=== PATIENT | male | born 1990 | race Caucasian/White ===

== ENCOUNTER 2020-12-21 17:20 | Emergency (ER) | payer BC, SELFPAY ==
[2020-12-21 17:28] VITALS: BP 144/92; PULSE 76; RESP 18; TEMP 36.9; O2SAT 99
--- NOTE | 2020-12-21 18:11 | ED.EAR ---
HPI - Ear Problem General Chief complaint: Ear Stated complaint: Right Ear Pain Time Seen by Provider: 12/21/20 18:05 Source: patient and RN notes reviewed Mode of arrival: ambulatory Limitations: no limitations History of Present Illness HPI Narrative: Patient presents today complaining of right ear pain x1 week. Denies drainage. Reports some muffled hearing occasionally. Denies cough, congestion, rhinorrhea, sore throat. Currently rates pain 3/10 and took some naproxen yesterday with some relief. No recent antibiotic use. Related Data Allergies Allergy/AdvReac Type Severity Reaction Status Date / Time No Known Allergies Allergy Unverified 12/21/20 17:36 Review of Systems Review of Systems: CONSTITUTIONAL: Denies body aches, fever, chills, or sweats. EYES: Denies visual changes, redness, or discharge. ENT: Denies rhinorrhea, congestion, sore throat. + Right ear pain with muffled hearing CARDIOVASCULAR: Denies chest pain, palpitations, or edema. RESPIRATORY: Denies cough or dyspnea. GASTROINTESTINAL: Denies abdominal pain, nausea, vomiting, or diarrhea. GENITOURINARY: Denies dysuria or hematuria. SKIN: Denies rash, itching, or wounds. MUSCULOSKELETAL: Denies back pain, joint pain, or myalgia. NEUROLOGIC: Denies headache, numbness, tingling, or weakness. PSYCH: Denies depression or anxiety. [facility] Family History Family History Father Family history of diabetes mellitus in first degree relative Hypertension Family history of elevated blood lipids Social History Social History Smoking status: Never smoker Alcohol intake: current Comments At time of signature, I have reviewed and agree with nursing past medical, surgical, social and family history unless otherwise noted. Please see nursing chart for further information. There is no relevant family history pertinent to the presenting complaint Exam Narrative: GENERAL: Well-appearing, well-nourished, and in no acute distress. HEAD: Normocephalic, atraumatic. EYES: EOMI. No redness or drainage. Conjunctivae normal. ENT: Mucous membranes pink and moist. Nares clear. No rhinorrhea. Left TM and canal normal. Right canal is mildly swollen with small amount of yellow purulent debris. Throat normal. Uvula midline. NECK: Normal AROM. CHEST: No respiratory distress. MUSCULOSKELETAL: No bony tenderness. EXTREMITIES: Normal range of motion. No edema. SKIN: Warm, dry, no rash. Capillary refill normal. Normal skin turgor. NEURO: No focal deficits. Alert and oriented x3. Gait steady. PSYCH: Normal affect. No signs of depression or anxiety. Course Vital Signs Vital signs: Vital Signs Temperature 98.5 F 12/21/20 17:28 Pulse Rate 76 12/21/20 17:28 Respiratory Rate 18 12/21/20 17:28 Blood Pressure 144/92 H 12/21/20 17:28 Pulse Oximetry 99 12/21/20 17:28 Temperature 98.5 F 12/21/20 17:28 Pulse Rate 76 12/21/20 17:28 Respiratory Rate 18 12/21/20 17:28 Blood Pressure 144/92 H 12/21/20 17:28 Pulse Oximetry 99 12/21/20 17:28 Reviewed. Pt has been instructed to follow up with his PCP regarding his elevated blood pressure today. Medical Decision Making Differential Diagnosis Differential Diagnosis: Otitis media, otitis externa, ruptured TM, serous otitis, eustachian tube dysfunction, cerumen impaction Vital Signs Vital Signs: Vital Signs Temperature 98.5 F 12/21/20 17:28 Pulse Rate 76 12/21/20 17:28 Respiratory Rate 18 12/21/20 17:28 Blood Pressure 144/92 H 12/21/20 17:28 Pulse Oximetry 99 12/21/20 17:28 Temperature 98.5 F 12/21/20 17:28 Pulse Rate 76 12/21/20 17:28 Respiratory Rate 18 12/21/20 17:28 Blood Pressure 144/92 H 12/21/20 17:28 Pulse Oximetry 99 12/21/20 17:28 Critical Care Time Critical Care Time Critical Care Time: No Discharge Plan Discharge Cli
== END 2020-12-21 18:19 | disposition home or self-care (01) ==
PROVIDERS: Emergency Provider Nurse Practitioner
DX: H66.91 Otitis media, unspecified, right ear (principal); H60.501 Unspecified acute noninfective otitis externa, right ear
CPT/HCPCS: 99203; G0463

== ENCOUNTER 2021-08-14 12:45 | Emergency (ER) | payer BC, SELFPAY ==
[2021-08-14 12:49] VITALS: BP 164/94; PULSE 89; RESP 16; TEMP 37; O2SAT 98
--- NOTE | 2021-08-14 12:55 | ED.EAR ---
HPI - Ear Problem General Chief complaint: Ear Stated complaint: ear pain Time Seen by Provider: 08/14/21 12:56 Source: patient Mode of arrival: ambulatory Limitations: no limitations History of Present Illness HPI Narrative: Mr. Vásquez is a 30-year-old male patient presenting to the clinic today with complaints of right-sided ear pain. He reports that the pain is just below his ear. He reports the pain is worse with talking, swallowing, and chewing. He denies any fever or chills. He does have some nasal congestion. He denies any difficulty hearing from the ear. Related Data Home Medications Medication Instructions Recorded Confirmed No Home Medications 08/14/21 08/14/21 Allergies Allergy/AdvReac Type Severity Reaction Status Date / Time No Known Allergies Allergy Unverified 08/14/21 12:58 Review of Systems Review of Systems: Pertinent positives per HPI. Patient denies any fever, chills, rash, headache, visual changes, dizziness, cough, runny nose, sore throat, shortness of breath, chest pain, palpitations, nausea, vomiting, diarrhea, constipation, abdominal pain, or any urinary issues. [facility] Family History Family History Father Family history of diabetes mellitus in first degree relative Hypertension Family history of elevated blood lipids Social History Social History Smoking status: Never smoker Alcohol intake: current Comments At the time of my signature, I reviewed and agree with the nursing past medical, surgical, social, and family history. There is no relevant family history pertinent to the patient complaint. Exam Narrative: General: Well-developed, well nourished, in no apparent distress Head: Normocephalic, atraumatic Eyes: Pupils equally round and reactive to light bilaterally, EOM intact, sclera and conjunctive clear, no discharge, lids normal Ears: TMs intact and clear, mild bulging to the right TM, tenderness to palpation over the right eustachian tube, ear canals red, no drainage, grossly hearing normal. Nose: Nares patent, clear nasal discharge, no inflammation, no sinus tenderness. Mouth: Oropharynx without lesions or masses, good dentition, MMM. Neck: Supple, trachea midline, no enlargement of anterior or posterior cervical nodes, no thyroid masses or goiter palpable. Cardio: Regular rate and rhythm, s1 and s2 normal, no murmur appreciated. Resp: Clear to auscultation bilaterally anteriorly and posteriorly, no rhonchi, rales, wheezing or rubs Course Course Emergency Course: Portions of this record may have been created with voice recognition software. Level of Care: Express Care Visit Vital Signs Vital signs: Vital Signs Temperature 37.0 C 08/14/21 12:49 Pulse Rate 89 08/14/21 12:49 Respiratory Rate 16 08/14/21 12:49 Blood Pressure 164/94 H 08/14/21 12:49 Pulse Oximetry 98 08/14/21 12:49 Oxygen Delivery Room Air 08/14/21 12:49 Temperature 37.0 C 08/14/21 12:49 Pulse Rate 89 08/14/21 12:49 Respiratory Rate 16 08/14/21 12:49 Blood Pressure 164/94 H 08/14/21 12:49 Pulse Oximetry 98 08/14/21 12:49 Oxygen Delivery Room Air 08/14/21 12:49 Vital signs reviewed Medical Decision Making MDM Narrative Medical decision making narrative: At the time of visit patient is resting comfortably on the exam table. I suspect that he has eustachian tube dysfunction with otalgia. I will send him a course of prednisone and to help alleviate the symptoms. Other supportive measures were discussed with the patient he voiced understanding of discharge instructions. Differential Diagnosis Differential Diagnosis: Patient tube dysfunction, otitis media, otitis externa, and otalgia Vital Signs Vital Signs: Vital Signs Temperature 37.0 C 08/14/21 12:49 Pulse Rate 89 08/14/21 12:49 Respiratory Rate 16 08/14/21
== END 2021-08-14 13:00 | disposition home or self-care (01) ==
PROVIDERS: Emergency Provider Nurse Practitioner Family
DX: H69.91 Unspecified Eustachian tube disorder, right ear (principal); H92.01 Otalgia, right ear
CPT/HCPCS: 99213; G0463

== ENCOUNTER 2021-11-18 19:05 | Emergency (ER) | payer SELFPAY ==
--- NOTE | 2021-11-18 19:07 | ED.EAR ---
HPI - Ear Problem General Chief complaint: Ear Stated complaint: Ear infection being treated;in pain Source: patient and RN notes reviewed Mode of arrival: ambulatory Limitations: no limitations History of Present Illness HPI Narrative: patient states he was seen in urgent care 2 days ago prescribed amoxicillin. He said he still having pain in his right ear. They did not use any drops for the otitis externa he was diagnosed with. He has only been taking 400 mg of ibuprofen or 650 of Tylenol. He denies any fever chills nausea vomiting. MD Complaint: ear pain Location: right ear Duration: constant Severity: severe Relieving factors: nothing Exacerbating factors: chewing Discharge from ear: Reports no Treatment prior to arrival: oral analgesic ( 400 mg of ibuprofen) Related Data Home Medications Medication Instructions Recorded Confirmed amoxicillin 875 mg tablet 875 mg PO DAILY 11/18/21 11/18/21 Allergies Allergy/AdvReac Type Severity Reaction Status Date / Time No Known Allergies Allergy Verified 11/18/21 19:12 Review of Systems Review of Systems: All systems reviewed & are unremarkable except as noted in HPI and below Constitutional: Constitutional: Denies chills and Denies fever(s) PMFSH Past Medical History Medical History (Updated 11/18/21 @ 19:31 by Inderjit Sparks MD) Body mass index [BMI] 45.0-49.9, adult (04/05/16) Surgical History Surgical History (Updated 11/18/21 @ 19:31 by Inderjit Sparks MD) Hx of cholecystectomy Family History Family History Father Family history of diabetes mellitus in first degree relative Hypertension Family history of elevated blood lipids Social History Social History Smoking status: Never smoker Alcohol intake: current Exam Const: General: healthy appearing, no acute distress and alert Nutritional Appearance: well nourished and obese morbidly obese Orientation/consciousness: patient oriented x3 Limitations: no limitations HENMT: Head: normal to inspection Ears: TM's normal bilaterally and Abnormal EAC present erythema on the right and diffuse, edema on the right and diffuse and EAC tenderness on the right Mouth: Yes Normal oral and palatal mucosa present and Yes moist mucous membranes abnormal Teeth and gingiva: caries Throat: posterior oropharynx normal Eyes: Conjunctivae: conjunctivae normal Pupils: Equal, round and reactive pupils present EOM: EOMs intact bilaterally Neck: Neck: normal visual inspection Resp: Effort & Inspection: normal respiratory effort Auscultation: clear to auscultation bilaterally Cardio: Rate: regular rate Rhythm: regular rhythm GI: GI Palp: Yes Soft to palpation and Yes Tenderness to palpation present (GI) Auscultation: normal bowel sounds Back/Spine/Pelvis: Cervical Spine: cervical ROM normal Thoracic/Lumbar Spine: thoraco-lumbar ROM normal Skin: General skin exam: normal color Rashes: no rashes Neuro: General: patient oriented x3, moves all extremities, no focal motor deficits and CN's II-XI intact bilaterally Speech: normal speech Gait exam (Neuro): Normal gait present Extrem: General: normal to inspection and no clubbing, cyanosis or edema Psych: Mental Status: mental status grossly normal Affect: normal affect Attitude: cooperative Discharge Plan Discharge Clinical Impression: Otitis externa Qualifiers: Otitis externa type: diffuse Chronicity: acute Laterality: right Qualified Code(s): H60.311 - Diffuse otitis externa, right ear Patient Disposition: Home, Self-Care Condition: Stable Instructions: Swimmer's Ear (ED) Additional Instructions: can increase ibuprofen to 800 mg 3 times a day but no longer than 10 days. Prescriptions: New Cortisporin-TC 3.3-3-10-0.5 mg/mL drops,suspension 4 drp RIGHT EAR TID Qty: 10 0RF No Action amoxicillin 875 mg tablet 87
[2021-11-18 19:17] VITALS: BP 151/97; PULSE 74; RESP 18; TEMP 36.4; O2SAT 96
== END 2021-11-18 19:31 | disposition home or self-care (01) ==
PROVIDERS: Emergency Provider Emergency Medicine; PCP Internal Medicine
DX: H60.311 Diffuse otitis externa, right ear (principal)
CPT/HCPCS: 99283

== ENCOUNTER 2023-05-11 08:11 | Emergency (ER) | payer SELFPAY ==
[2023-05-11 08:17] VITALS: BP 133/82; PULSE 91; RESP 16; TEMP 36.6; O2SAT 98
--- NOTE | 2023-05-11 08:28 | ED.URI ---
HPI - URI/Sore Throat General Chief Complaint: Upper Respiratory Infection Stated Complaint: throat Time Seen by Provider: 05/11/23 08:29 Source: patient Mode of arrival: ambulatory Limitations: no limitations History of Present Illness HPI Narrative: 32 yo M presents with c/o sore throat, fatigue, headache for 5 days. States throat pain is really bad and worse with swallowing. have never had sore throat like this or for this long . denies N/v/D. No CP or SOB. All systems reviewed and negative except as noted above. Related Data Allergies Allergy/AdvReac Type Severity Reaction Status Date / Time No Known Allergies Allergy Verified 11/18/21 19:12 Review of Systems Review of Systems: CONSTITUTIONAL: Denies fever, chills, or sweats. EYES: Denies visual changes, redness, or discharge. ENT: Reports rhinorrhea, congestion, sore throat. Denies otalgia. CARDIOVASCULAR: Denies chest pain, palpitations, or edema. RESPIRATORY: Denies cough or dyspnea. GASTROINTESTINAL: Denies abdominal pain, nausea, vomiting, or diarrhea. GENITOURINARY: Denies dysuria or hematuria. SKIN: Denies rash or itching. MUSCULOSKELETAL: Denies back pain, joint pain, or myalgia. NEUROLOGIC: Reports headache. Denies numbness, or weakness. PSYCHIATRIC: Denies anxiety or depression. All other systems reviewed are negative, except as documented in HPI. [facility] Past Medical History Medical History (Updated 05/11/23 @ 08:46 by Cynthia Faustin NP) Body mass index [BMI] 45.0-49.9, adult (04/05/16) Surgical History Surgical History (Updated 11/18/21 @ 19:31 by Inderjit Sparks MD) Hx of cholecystectomy Family History Family History Father Family history of diabetes mellitus in first degree relative Hypertension Family history of elevated blood lipids Social History Social History Smoking status: Never smoker Alcohol intake: current Comments At time of signature, agree with nursing past medical, surgical, social and family history. There is no relevant family history pertinent to the presenting complaint. Exam Narrative: GENERAL: This is a well-nourished, well-developed patient, in no apparent distress. HEAD: normocephalic, atraumatic. EYES: PERRL. Sclera clear/white. Vision is grossly intact. EARS: External ears normal, auditory canals clear and without drainage, TMs normal without perforation. Hearing grossly intact. NOSE: External nose normal with no obvious nasal discharge, nares without redness, no rhinorrhea. THROAT: Mucous membranes moist, erythemat and swelling to posterior pharynx, tonsils 2+bilaterally with no exudate. NECK: Neck supple, non-tender without lymphadenopathy, masses or thyromegaly. CARDIOVASCULAR: Regular rate and rhythm without murmurs, gallops, or rubs. RESPIRATORY: Clear to auscultation. Breath sounds equal bilaterally. No wheezes, rales, or rhonchi. SKIN: warm, Dry, intact with no suspicious lesions or rash, good texture and turgor. NEURO: awake, alert, and oriented to person, place and time. There were no obvious focal neurologic abnormalities. EXTREMITIES: No joint tenderness, effusion, or edema noted. Course Course Level of Care: Express Care Visit Vital Signs Vital signs: Vital Signs Temperature 36.6 C 05/11/23 08:17 Pulse Rate 91 05/11/23 08:17 Respiratory Rate 16 05/11/23 08:17 Blood Pressure 133/82 05/11/23 08:17 Pulse Oximetry 98 05/11/23 08:17 Oxygen Delivery Room Air 05/11/23 08:17 Temperature 36.6 C 05/11/23 08:17 Pulse Rate 91 05/11/23 08:17 Respiratory Rate 16 05/11/23 08:17 Blood Pressure 133/82 05/11/23 08:17 Pulse Oximetry 98 05/11/23 08:17 Oxygen Delivery Room Air 05/11/23 08:17 reviewed MDM - URI/Sore Throat MDM Narrative Medical decision making narrative: Neg strep, influenza and covid. Will treat with abx due to
== END 2023-05-11 08:52 | disposition home or self-care (01) ==
PROVIDERS: Emergency Provider Nurse Practitioner Family
DX: J02.9 Acute pharyngitis, unspecified (principal); Z20.822 Contact with and (suspected) exposure to COVID-19
CPT/HCPCS: 87081; 87426; 87804; 87880; 99213; G0463

== ENCOUNTER 2023-08-23 09:17 | Emergency (ER) | payer OTHER, SELFPAY ==
[2023-08-23 09:34] VITALS: BP 142/78; PULSE 76; RESP 20; TEMP 36.7; O2SAT 98
--- NOTE | 2023-08-23 10:09 | ED.EAR ---
HPI - Ear Problem General Chief complaint: Ear Stated complaint: Right ear pain Source: patient Mode of arrival: ambulatory Limitations: no limitations History of Present Illness HPI Narrative: 32-year-old male presented for complaint of right ear pain for 3 days. Endorses decreased hearing. Denies Ear drainage, tinnitus, dizziness, nausea, vomiting, fevers or chills. Has taken Tylenol and ibuprofen. MD Complaint: ear pain Related Data Allergies Allergy/AdvReac Type Severity Reaction Status Date / Time No Known Allergies Allergy Verified 08/23/23 10:04 Review of Systems Review of Systems: CONSTITUTIONAL: Denies malaise, chills, or fever. EYES: Denies visual changes, redness, or discharge. ENT: Denies rhinorrhea, congestion, sinus pain, and sore throat. Reports ear pain CARDIOVASCULAR: Denies chest pain, palpitations, or edema. RESPIRATORY: Denies cough or dyspnea. GASTROINTESTINAL: Denies abdominal pain, nausea, vomiting, diarrhea SKIN: Denies rash or itching. MUSCULOSKELETAL: Denies myalgia. NEUROLOGIC: Denies headache. All systems reviewed & are unremarkable except as noted in HPI and below PMFSH Past Medical History Medical History Body mass index [BMI] 45.0-49.9, adult (04/05/16) Surgical History Surgical History Hx of cholecystectomy Family History Family History Father Family history of diabetes mellitus in first degree relative Hypertension Family history of elevated blood lipids Social History Social History Smoking status: Never smoker Alcohol intake: current Comments At time of signature, agree with nursing past medical, surgical, social and family history. There is no relevant family history pertinent to the presenting complaint Exam Narrative: GENERAL: Well-appearing EYES: PERRLA, conjunctivae clear ENT: Nares clear. Mucous membranes moist. Left TM pearly bella with dull light reflex; Right TM unable to fully visualize due to canal canal swelling with drainage, erythematous, mild right tragal tenderness. Visualized portion of right TM appears normal. NECK: Supple. No lymphadenopathy CHEST: Clear to auscultation, breath sounds equal. HEART: Regular rate and rhythm. No murmur heard. SKIN: Warm, dry, no rash. NEURO: Alert and oriented x3. PSYCH: Normal mood and affect Course Course Emergency Course: Patient is aware of diagnosis, understands and agrees to treatment plan. Anticipatory guidance given. Patient agrees to follow-up as directed and is aware of reasons to seek care at the emergency department. Portions of this record may have been created with voice recognition software Level of Care: Express Care Visit Vital Signs Vital signs: Vital Signs Temperature 98.1 F 08/23/23 09:34 Pulse Rate 76 08/23/23 09:34 Respiratory Rate 20 08/23/23 09:34 Blood Pressure 142/78 H 08/23/23 09:34 Pulse Oximetry 98 08/23/23 09:34 Oxygen Delivery Room Air 08/23/23 09:34 Temperature 98.1 F 08/23/23 09:34 Pulse Rate 76 08/23/23 09:34 Respiratory Rate 20 08/23/23 09:34 Blood Pressure 142/78 H 08/23/23 09:34 Pulse Oximetry 98 08/23/23 09:34 Oxygen Delivery Room Air 08/23/23 09:34 Reviewed Medical Decision Making MDM Narrative Medical decision making narrative: discussed physical exam findings consistent with right otitis externa. Advised supportive measures and signs/symptoms to go to the ER. Patient is appropriate for outpatient treatment and follow-up. Differential Diagnosis Differential Diagnosis: Coronavirus, strep pharyngitis, allergic rhinitis, upper respiratory tract infection, sinusitis, rhinosinusitis, nasopharyngitis, viral pharyngitis, otitis media, otitis externa, eustachian tube dysfunction, foreign body, c
== END 2023-08-23 10:16 | disposition home or self-care (01) ==
PROVIDERS: Emergency Provider Nurse Practitioner Family
DX: H60.91 Unspecified otitis externa, right ear (principal)
CPT/HCPCS: 99213; G0463

== ENCOUNTER 2024-01-10 09:27 | Outpatient (CLI) | payer OTHER, SELFPAY ==
--- NOTE | ~2024-01-10 | XR_ITS ---
3 VIEWS PARANASAL SINUSES Ordering provider: Rafa Porter MD History: . elevated white count/elevated platelet count/nausea /Dizzine . Comparison: None. FINDINGS: BONES: No acute fracture as visualized. PARANASAL SINUSES: Well aerated. No air fluid levels. SOFT TISSUES: Normal. IMPRESSION: NO EVIDENCE OF SINUS DISEASE. CONSIDER FOLLOW UP CT PARANASAL SINUSES IF THERE IS CONTINUED CONCERN. Reviewed, dictated and finalized at location A.
--- NOTE | ~2024-01-10 | XR_ITS ---
EXAMINATION: XR chest 2V 01/10/2024 10:04 INDICATION: Elevated white blood cell count PROCEDURE: 2 view chest COMPARISON: No prior studies for comparison. FINDINGS: The lungs are clear. The cardiomediastinal silhouette is within normal limits. There are no pleural effusions. There is no pneumothorax suspected. IMPRESSION: 1: NO ACUTE CARDIOPULMONARY DISEASE. Reviewed, dictated and finalized at location B.
[2024-01-10 09:43] LABS: Basophils Absolute Auto 0.09 K/mm3 (0.00-0.10); Basophils Percent Auto 0.9 % (0.0-1.0); Eosinophils Absolute Auto 0.19 K/mm3 (0.02-0.50); Eosinophils Percent Auto 1.8 % (1.0-6.0); Hematocrit 44.5 % (40.0-54.0); Hemoglobin 14.9 g/dL (14.0-18.0); Immature Granulocyte Absolute 0.03 K/mm3 (0.00-0.00); Immature Granulocyte Percent A 0.3 % (0.0-0.0); Lymphocytes Absolute Auto 1.83 K/mm3 (1.10-4.50); Lymphocytes Percent Auto 17.4 % (18.0-42.0); Mean Corpuscular HGB Conc 33.5 g/dL (32-36); Mean Corpuscular Hemoglobin 29.2 pg (27.0-31.0); Mean Corpuscular Volume 87.1 fL (78.0-102.0); Monocytes Absolute Auto 0.74 K/mm3 (0.10-0.90); Neutrophils Absolute Auto 7.64 K/mm3 (1.70-7.20); Neutrophils Percent Auto 72.6 % (50.0-70.0); Platelet Count Result 375 K/mm3 (150-420); Red Blood Count 5.11 M/mm3 (4.70-6.10); Red Cell Distribution Width 12.4 % (11.6-14.4); White Blood Count 10.5 K/mm3 (4.8-10.8)
[2024-01-10 10:07] LABS: CRP 1.1 mg/dL (0.0-0.9)
== END 2024-01-10 09:28 | disposition home or self-care (01) ==
LOC: CHSLAB 09:30
PROVIDERS: PCP Internal Medicine; Visit Provider Internal Medicine
DX: D72.829 Elevated white blood cell count, unspecified (principal); R42 Dizziness and giddiness; R11.0 Nausea
CPT/HCPCS: 36415; 70220; 71046; 85025; 86140

== ENCOUNTER 2024-03-25 17:19 | Emergency (ER) | payer OTHER, SELFPAY ==
[2024-03-25 17:36] VITALS: BP 125/80; PULSE 91; RESP 20; TEMP 36.6; O2SAT 97
--- NOTE | 2024-03-25 18:34 | ED.EAR ---
HPI - Ear Problem General Chief complaint: Ear Stated complaint: migraine x 2 days Time Seen by Provider: 03/25/24 18:30 Source: patient, RN notes reviewed and old records reviewed Mode of arrival: ambulatory Limitations: no limitations History of Present Illness HPI Narrative: 33 year old male who presents to [facility] with complaints of ear pain for the past 3 days which has caused bad headache. Patient reports that he has history of having bad headaches but has never been diagnosed with migraines. Patient reports that right ear pain is sharp at times constant dull ache. with muffled hearing. Patient reports that he needs a work note since he has had to call off work.Patient reports that he has been taking Ibuprofen for his pain. MD Complaint: ear pain and other (pain to head) Location: right ear Duration: constant Severity: moderate Discharge from ear: Reports no Treatment prior to arrival: oral analgesic (Ibuprofen) Related Data Allergies Allergy/AdvReac Type Severity Reaction Status Date / Time No Known Allergies Allergy Verified 03/25/24 17:44 Review of Systems Review of Systems: CONSTITUTIONAL: Reports malaise,no chills, sweats, or fever. EYES: Denies visual changes, redness, or discharge. ENT: Reports rhinorrhea, congestion, no sinus pain,right otalgia and no sore throat. CARDIOVASCULAR: Denies chest pain, palpitations, or edema. RESPIRATORY: Reports no acute cough.? Denies dyspnea. GASTROINTESTINAL: Denies abdominal pain, nausea, vomiting, diarrhea SKIN: Denies rash or itching. MUSCULOSKELETAL: Denies myalgia. NEUROLOGIC: reports headache. All systems reviewed & are unremarkable except as noted in HPI and below PMFSH Past Medical History Medical History Chronic headaches Obesity Body mass index [BMI] 45.0-49.9, adult (04/[birth year]/16) Surgical History Surgical History Hx of cholecystectomy Family History Family History Father Family history of diabetes mellitus in first degree relative Hypertension Family history of elevated blood lipids Social History Social History Smoking status: Never smoker Alcohol intake: current Comments At time of signature, agree with nursing past medical, surgical, social and family history. There is no relevant family history pertinent to the presenting complaint Exam Narrative: GENERAL: Well-appearing, well-nourished,obese and in no acute distress. HEAD: Normocephalic EYES: PERRLA, conjunctivae clear no nystagmus ENT: Nares clear, turbinates edematous and erythematous, clear discharge. Mucous membranes moist.Right TM red and bulging with canal red and irritated, Left TM pearly bella with dull light reflex; no tragal tenderness. Oropharynx erythematous without lesions. Tonsils not enlarged and without exudate, no drooling, no hoarseness, no trismus, uvula midline.PND NECK: Supple. No lymphadenopathy CHEST: Clear to auscultation, breath sounds equal. No wheezing, rhonchi, rales, or stridor. No respiratory distress, speaks in full sentences.no acute cough noted,SAO2 97% on room air HEART: Regular rate and rhythm. No murmur heard. SKIN: Warm, dry, no rash. NEURO: Alert and oriented x3. PSYCH: Normal mood and affect Course Course Emergency Course: Patient is aware of diagnosis, understands and agrees to treatment plan.? Anticipatory guidance given.? Patient agrees to follow-up as directed and is aware of reasons to seek care at the emergency department. Portions of this record may have been created with voice recognition software Level of Care: Express Care Visit Vital Signs Vital signs: Vital Signs Temperature 36.6 C 03/25/24 17:36 Pulse Rate 91 03/25/24 17:36 Respiratory Rate 20 03/25/24 17:36 Blood Pressure 125/80 03/25/24 17:36 Pulse Oximetry 97 03/25/24 17:36 Oxygen Delivery Room Air 03/25/24 17:36 Temperature 36.6 C 03/25/24 17:36 Pulse Rate 91 03/25/24 17:36 Respiratory Rate 20 03/25/24 17:36 Blood Pressure 125/80 03/25/24 17:36 Pulse Oximetry 97 03/25/24 17:36 Oxygen Delivery Room Air 03/25/24 17:36 Reviewed Medical Decision Making Differential Diagnosis Differential Diagnosis: URI, otitis media, otitis externa , headache Medical Records Medical records reviewed: Yes I reviewed the external patient's medical records. Vital Signs Vital Signs: Vital Signs Temperature 36.6 C 03/25/24 17:36 Pulse Rate 91 03/25/24 17:36 Respiratory Rate 20 03/25/24 17:36 Blood Pressure 125/80 03/25/24 17:36 Pulse Oximetry 97 03/25/24 17:36 Oxygen Delivery Room Air 03/25/24 17:36 Temperature 36.6 C 03/25/24 17:36 Pulse Rate 91 03/25/24 17:36 Respiratory Rate 20 03/25/24 17:36 Blood Pressure 125/80 03/25/24 17:36 Pulse Oximetry 97 03/25/24 17:36 Oxygen Delivery Room Air 03/25/24 17:36 reviewed Critical Care Time Critical Care Time Critical Care Time: No Discharge Plan Discharge Clinical Impression: Otitis externa Qualifiers: Otitis externa type: diffuse Chronicity: acute Laterality: right Qualified Code(s): H60.311 - Diffuse otitis externa, right ear Otitis media Qualifiers: Otitis media type: serous Chronicity: acute Laterality: right Recurrence: not specified as recurrent Qualified Code(s): H65.01 - Acute serous otitis media, right ear Patient Disposition: Home, Self-Care Condition: Stable Instructions: Antibiotic Form, Ear Infection (GEN) Additional Instructions: Increase fluids especially juices and water [id number] cough and cold medicine of your choice for your symptoms Cough tablets as directed for cough--do not bite, chew or suck on--swallow whole Zyrtec Claritin or Pratibha daily Prednisone twice daily for 5 days Tylenol or ibuprofen for any fever pain Ear drops to right ear as prescribed heat to the face 20-30 minutes 4-6 times a day for pain Salt water gargles, throat lozenges or throat sprays as desired Antibiotic as directed--finished the medication If your symptoms persist, change or worsen significantly before you can contact your personal physician then please, without delay, go to the emergency department for further evaluation. Follow-up with PCP in 7-10 days or sooner if needed Follow up with PCP soon in regards to your blood pressure which is elevated above threshold for referral. Blood pressure above 120/80 may indicate pre-hypertension. Patient Language: Icelandic Prescriptions: New amoxicillin-pot clavulanate 875-125 mg tablet 1 tablet PO Q12H Qty: 20 0RF ofloxacin 0.3 % drops 5 drp RIGHT EAR BID 7 Days Qty: 10 0RF prednisone 20 mg tablet 20 mg PO BID Qty: 10 0RF Follow-up/Referrals: Rafa Porter MD [Primary Care Provider] - Stand Alone Forms: Work/School Release IP Time of Disposition: 18:42 Quality [place] Coma Scale Eyes: Open Verbal: Oriented and Alert Motor: Follows Commands [place] Coma Total Score: 15
== END 2024-03-25 18:50 | disposition home or self-care (01) ==
PROVIDERS: Emergency Provider Registered Nurse; PCP Internal Medicine
DX: H60.311 Diffuse otitis externa, right ear (principal); H65.01 Acute serous otitis media, right ear; E66.9 Obesity, unspecified; Z68.42 Body mass index [BMI] 45.0-49.9, adult
CPT/HCPCS: 99213; G0463

== ENCOUNTER 2024-09-25 14:42 | Outpatient (CLI) | payer OTHER, SELFPAY ==
--- OUTSIDE RECORDS SUMMARY | 2024-09-25 14:48 | XMS_ITS | Clinical Summary ---
Author Organization [facility] [place] [address] [facility] lto Address [address] lesley [facility] [place] [address] Care Team Providers Care Quantitative Associate Name Role Phone Rafa Porter MD Primary Care Provider Allergies No known active allergies Encounters Date Type Department Care Team Description 09/24/2024 10:22 PM CDT - 09/25/2024 3:08 AM CDT Emergency [facility] Emergency Department [address] [place] [address] Kaylyn Alaniz MD Syncope and collapse (Primary Dx) Discharge Disposition: Discharge to home or self care from Last 3 Months Social History Tobacco Use Types Packs/Day Years Used Date Smoking Tobacco: Never Assessed Personal Safety Answer Date Recorded Have you ever been in or are you currently in a harmful physical or emotional relationship or is someone making you feel afraid or unsafe? 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 Gender Identity Not on file Sexual Orientation Not on file Obstetrics History Last Filed Vital Signs Vital Sign Reading Time Taken Comments Blood Pressure 153/91 09/25/2024 3:00 AM CDT Pulse 88 09/25/2024 3:00 AM CDT Temperature 37.1 C (98.8 F) 09/24/2024 10:29 PM CDT Respiratory Rate 21 09/25/2024 3:00 AM CDT Oxygen Saturation 92% 09/25/2024 3:00 AM CDT Inhaled Oxygen Concentration - - Weight 143.3 kg (315 lb 14.4 oz) 2024 10:27 PM CDT Height - - Body Mass Index - - Plan of Treatment Health Maintenance Due Date Last Done Comments Depression Screening 1989 Hepatitis C Screening 1989 Varicella Vaccines (1 of 2 - 13+ 2-dose series) 2002 Regular Well Visit/Exam 18-64 10/20/2007 DTaP/Tdap/Td Vaccine (8 - Td or Tdap) 11/14/2015 11/13/2005, 03/08/2005, 10/23/1995, Additional history exists Influenza Vaccine (#1) 2024 Hepatitis B Screening Completed 03/24/1996 , 11/23/1995, 10/23/1995 HPV Vaccines Aged Out No longer eligi ble based on patient's age to complete this topic Pneumococcal vaccine <65 Aged Out No longer eligible based on patient's age to complete this topic Procedures Procedure Name Priority Date/Time Associated Diagnosis Comments EGFR STAT 09/25/2024 2:18 AM CDT BASIC METABOLIC PANEL STAT 09/25/2024 2:18 AM CDT TROPONIN T HIGH-SENSITIVITY 4-HR Timed 09/25/2024 2:18 AM CDT SEPSIS LACTATE WITH REFLEX Timed 09/25/2024 1:22 AM CDT TROPONIN T HIGH-SENSITIVITY 2-HOUR Timed 09/25/2024 1:21 AM CDT URINALYSIS AND REFLEX TO MICROSCOPIC AND CULTURE STAT 09/25/2024 1:[address] CHEST ABDOMEN PELVIS W CONTRAST ED 09/25/2024 1:[address] HEAD WO CONTRAST ED 09/24/2024 1 1:03 PM CDT XR CHEST 1 VIEW ED 09/24/2024 10:40 PM CDT EGFR STAT 09/24/2024 10:37 PM CDT DIFFERENTIAL AUTO STAT 09/24/2024 10: 37 PM CDT TROPONIN T HIGH-SENSITIVITY SERIES (BASELINE, 2HR, 4HR, 6HR) STAT 09/24/2024 10:37 PM CDT CREATINE KINASE (CK), TOTAL STAT 09/24/2024 10:37 PM CDT SEPSIS LACTATE WITH REFLEX STAT 09/24/2024 10:37 PM CDT COMPREHENSIVE METABOLIC PANEL STAT 09/24/2024 10:37 PM CDT CBC WITH AUTO DIFFERENTIAL STAT 09/24/2024 10:37 PM CDT ECG 12-LEAD Routine 09/24/2024 10:26 PM CDT from Last 3 Months Results * Troponin T high-sensitivity 4-hour (09/25/2024 2:18 AM CDT) Trop T hs 11 <=22 ng/L Comment: Interpretive Data For further hscTnT resources including the diagnostic algorithm and an aid in interpretation, copy and paste this link: https://nrl.testcatalog.org/show/hsTrop Current Interpretive Data last revised 2020. Trop T hs delta 5 ng/L [facility] ([facility]) Trop T hs interp Equivocal [facility] ([facility]) Blood 09/25/2024 2:18 AM CDT 09/25/2024 2:22 AM CDT us Kaylyn Alaniz MD LAB BLOOD ORDERABLES Erica l Result [facility] ([place]) 1 [facility] [place] [address] * eGFR (09/25/2024 2:18 AM CDT) eGFR >90 >=60 mL/min/1. 73 m2 Comment: Interpretive Data Reference Interval Normal >/= 90 mL/min/1.73m2 Mildly decreased* 60 - 89 mL/min/1.73m2 Mildly to moderately decreased 45 - 59 mL/min/1.73m2 Moderately to severely decreased 30 - 44 mL/min/1.73m2 Severely decreased 15 - 29 mL/min/1.73m2 Kidney Failure < 15 mL/min/1.73m2 *Relative to young adult level Estimated glomerular filtration rate is determined by the 2020 CKD-EPI equation recommended by the National Kidney Foundation (A Unifying Approach to GFR Estimation: Recommendations of the NKF-ASK Task Force on Reassessing the Inclusion of Race in Diagnosing Kidney Disease, JASN 2020). The CKD-EPI equation should not be used for patients with unstable renal function and has not been validated in children and those over 70. Current interpretive data was last reviewed 2021. Blood 09/25/2024 2:18 AM CDT 09/25/2024 2:22 AM CDT Kaylyn Alaniz MD LAB BLOOD ORDERABLES Erica rodriguez Result [facility] ([place]) 1 [facility] [place] [address] * (ABNORMAL) Basic metabolic panel (09/25/2024 2:18 AM CDT) Sodium 138 135 - 145 mmol/L Potassium, pl 3.9 3.3 - 4.9 mmol/L [facility] Chloride 102 97 - 110 mmol/L [facility] ([place]) CO2 24 22 - 32 mmol/L [facility] ([place]) Anion gap 12 2 - 15 mmol/L [facility] ([place]) BUN 9 6 - 25 mg/dL [facility] Creatinine 0.88 0.80 - 1.30 mg/dL [facility] ([place]) Glucose 105 70 - 199 mg/dL [facility] ([place]) Comment: Interpretive Data Fasting glucose >/= 126 mg/dl is diagnostic for diabetes. Fasting is defined as no caloric intake for at least 8 hours. Fasting glucose between 100 mg/dl to 125 mg/dl is diagnostic of prediabetes. In a patient with classic symptoms of hyperglycemia or hyperglycemic crisis, a random glucose >/= 200 mg/dl is diagnostic for diabetes. In the absence of unequivocal hyperglycemia, results should be confirmed by repeat testing. The classification and Diagnosis of Diabetes Diabetes Care 2021; 46: S19-S40. Current interpretive data was last revised 2022. Calcium 8.4(L) 8.5 - 10.3 mg/dL [facility] ([place]) Blood 09/25/2024 2:18 AM CDT 09/25/2024 2:22 AM CDT Kaylyn Alaniz MD LAB BLOOD ORDERABLES Erica l Result [facility] ([place]) 1 [facility] [place] [address] * Sepsis Lactate w/ Reflex (09/25/2024 1:22 AM CDT) Sepsis Lactate 1.9 0.7 - 2.0 mmol/L Blood 09/25/2024 1:22 AM CDT 09/25/2024 1:27 AM CDT Kaylyn Alaniz MD LAB BLOOD ORDERABLES Erica l Result [facility] ([place]) [address] [place] [address] [employer] [place] [address] * Troponin T high-sensitivity 2-hour (09/25/2024 1:21 AM CDT) Trop T hs 11 <=22 ng/L Comment: Interpretive Data For further hscTnT resources including the diagnostic algorithm and an aid in interpretation, copy and paste this link: https://nrl.testcatalog.org/show/hsTrop Current Interpretive Data last revised 2020. Trop T hs delta 5 ng/L [facility] ([place]) Trop T hs interp Equivocal [facility] ([place]) Blood 09/25/2024 1:21 AM CDT 09/25/2024 1:27 AM CDT Kaylyn Alaniz MD LAB BLOOD ORDERABLES Erica l Result [facility] ([place]) [address] [facility] [place] [address] * Urinalysis reflex to microscopic and culture Urine (09/25/2024 1:21 AM CDT) Color, ur Yellow Yellow Clarity, ur Clear Clear [facility] ([place]) Specific gravity, ur 1.024 1.003 - 1.030 [facility] ([place]) pH, urine 6.0 [facility] ([place]) Comment: Interpretive Data U rine pH is affected by diet, medications, systemic acid-base disturbances, and renal tubular function. pH may affect urinary stone formation. For example, urine pH below 6.0 may help reduce the tendency for calcium phosphate stones and pH greater than 6.0 may reduce the tendency for uric acid stone formation. Source: [facility] Current Interpretive Data was last revised on 2017 Protein, ur ql Trace Negative [facility] ([place]) Glucose, ur ql Negative Negative [facility] ([place]) Ketones, ur Trace Negative [facility] ([place]) Bilirubin, ur Negative Negative [facility] ([place]) Blood, ur Negative Negative [facility] ([place]) Urobilinogen, ur <2.0 <2.0 mg/dL [facility] ([place]) Nitrite, ur Negative Negative [facility] ([place]) Leukocyte esterase, ur Negative Negative [facility] ([place]) UA reflex comment Reflex conditions for microscopic UA and culture not met. [facility] ([place]) Urine 09/25/2024 1:21 AM CDT 09/25/2024 1:27 AM CDT Kaylyn Alaniz MD LAB MICROBIOLOGY - GENERA L ORDERABLES Final Result [facility] ([place]) [address] [facility] [place] [address] * CT Chest Abdomen Pelvis W Contrast (09/25/2024 1:16 AM CDT) Anatomical Region Laterality Modality Body N/A Computed Tomogra phy 09/25/2024 1:28 AM CDT Narrative 09/25/2024 1:34 AM CDT EXAM DESCRIPTION: CT CHEST ABDOMEN PELVIS W CONTRAST REASON FOR STUDY: syncope Patient presents status post syncopal episode at work today TECHNIQUE: CT scan of the chest, abdomen, and pelvis performed with intravenous and without oral contrast using helical scanning technique with dynamic intravenous contrast injection. Reconstructed coronal and sagittal MPR images reviewed. All images stored on PACS. Automated exposure control was used as a dose optimization technique for this examination. CONTRAST TYPE/DOSE: 100mL of IOVERSOL 350 MG IODINE/ML INTRAVENOUS SYRINGE injected via intravenous COMPARISON: Chest x-ray of September 24, 2024. REFERENCE: Per ACR white paper recommendations, unless otherwise specified no follow-up imaging is recommended for incidental renal and adrenal lesions per consensus recommendations based on imaging criteria. Further lab evaluation could be pursued based on clinical findings. FINDINGS: CHEST NECK BASE: Unremarkable. HARDWARE/LINES/TUBES: None. LYMPH NODES: No axillary, mediastinal or hilar lymphadenopathy is seen by CT size criteria. MEDIASTINUM/ADRIANO: No masses seen. The aorta and great vessels appear normal. There is no significant coronary artery calcification. Heart size is normal. There is no significant pericardial effusion. PLEURA: No effusion. No pneumothorax. LUNGS: There is minimal dependent atelectasis. The lungs are otherwise clear. The central airways are normal. MUSCULOSKELETAL: No acute abnormality. CHEST WALL/BREAST: Unremarkable. OTHER: No other significant abnormality. ABDOMEN AND PELVIS LIVER: The liver is normal in attenuation without focal lesion. GALLBLADDER: Surgically absent. BILE DUCTS: No intrahepatic or extrahepatic ductal dilatation. PANCREAS: Normal. SPLEEN: No focal lesions. Spleen is normal in size. ADRENALS: Normal. KIDNEYS/URINARY TRACT: No significant cystic or solid masses. No visualized renal or ureteral stones. There is no hydronephrosis or hydroureter. Urinary bladder is unremarkable. VASCULATURE: No acute abnormality seen. No abdominal aortic aneurysm. GI: The stomach appears normal. There is no significant small bowel dilation or visible thickening. There are a few scattered diverticula through out the colon. The appendix is not visualized, however, there are no pericecal inflammatory changes seen to suggest appendicitis. PERITONEUM/MESENTERY: No ascites or free air. LYMPH NODES: There are no enlarged lymph nodes seen by CT size criteria. RETROPERITONEUM: No retroperitoneal abnormalities. REPRODUCTIVE: The prostate and seminal vesicles are unremarkable. MUSCULOSKELETAL: No significant abnormality. OTHER: No other abnormality. IMPRESSION: 1. No acute findings in the chest, abdomen or pelvis. 2. Colonic diverticulosis without evidence of acute diverticulitis. THIS IS AN ELECTRONICALLY VERIFIED FINAL REPORT 09/25/2024 1:34 AM - Electronically signed by Kathryn Cobb M.D. SN: Report ID: [id number] Reading Location: [id number] Procedure Note Kathryn Cobb MD - 09/25/2024 EXAM DESCRIPTION: CT CHEST ABDOMEN PELVIS W CONTRAST REASON FOR STUDY: syncope Patient presents status post syncopal episode at work today TECHNIQUE: CT scan of the chest, abdomen, and pelvis performed with intravenous and without oral contrast using helical scanning techniquewith dynamic intravenous contrast injection. Reconstructed coronal and sagittalMPR images reviewed. All images stored on PACS. Automated exposure control was used as a dose optimization technique for this examination. CONTRAST TYPE/DOSE: 100mL of IOVERSOL 350 MG IODINE/ML INTRAVENOUS SYRINGE injected via intravenous COMPARISON: Chest x-ray of September 24, 2024. REFERENCE: Per ACR white paper recommendations, unless otherwise specifiedno follow-up imaging is recommended for incidental renal and adrenal lesionsper consensus recommendations based on imaging criteria. Further labevaluation could be pursued based on clinical findings. FINDINGS: CHEST NECK BASE: Unremarkable. HARDWARE/LINES/TUBES: None. LYMPH NODES: No axillary, mediastinal or hilar lymphadenopathy is seen byCT size criteria. MEDIASTINUM/ADRIANO: No masses seen. The aorta and great vessels appear normal. There is no significant coronary artery calcification. Heartsize is normal. There is no significant pericardial effusion. PLEURA: No effusion. No pneumothorax. LUNGS: There is minimal dependent atelectasis. The lungs are otherwise clear. The central airways are normal. MUSCULOSKELETAL: No acute abnormality. CHEST WALL/BREAST: Unremarkable. OTHER: No other significant abnormality. ABDOMEN AND PELVIS LIVER: The liver is normal in attenuation without focal lesion. GALLBLADDER: Surgically absent. BILE DUCTS: No intrahepatic or extrahepatic ductal dilatation. PANCREAS: Normal. SPLEEN: No focal lesions. Spleen is normal in size. ADRENALS: Normal. KIDNEYS/URINARY TRACT: No significant cystic or solid masses. Novisualized renal or ureteral stones. There is no hydronephrosis or hydroureter. Urinary bladder is unremarkable. VASCULATURE: No acute abnormality seen. No abdominal aortic aneurysm. GI: The stomach appears normal. There is no significant small bowel dilation or visible thickening. There are a few scattered diverticula through out the colon. The appendix is not visualized, however, thereare no pericecal inflammatory changes seen to suggest appendicitis. PERITONEUM/MESENTERY: No ascites or free air. LYMPH NODES: There are no enlarged lymph nodes seen by CT size criteria. RETROPERITONEUM: No retroperitoneal abnormalities. REPRODUCTIVE: The prostate and seminal vesicles are unremarkable. MUSCULOSKELETAL: No significant abnormality. OTHER: No other abnormality. IMPRESSION: 1. No acute findings in the chest, abdomen or pelvis. 2. Colonic diverticulosis without evidence of acute diverticulitis. THIS IS AN ELECTRONICALLY VERIFIED FINAL REPORT 09/25/2024 1:34 AM - Electronically signed by Kathryn Cobb M.D. SN: Report ID: [id number] Reading Location: [place] [address] Kaylyn Alaniz MD IMG CT PROCEDURES Final R esult * CT Head WO Contrast (09/24/2024 11:03 PM CDT) Anatomical Region Laterality Modality Head and Neck N/A Computed Tomogra phy 09/24/2024 11:0 8 PM CDT Narrative 09/24/2024 11:10 PM CDT EXAM DESCRIPTION: CT HEAD WO CONTRAST REASON FOR STUDY: weak Patient had syncopal type episode at work today, pt blacked out at work and collapsed out of chair. Needed painful stimuli in order to wake up, pt aox4, TECHNIQUE: Axial images acquired through the brain without intravenous contrast. Coronal and sagittal reformats were performed. Images stored on PACS. Automated mA/kV exposure control was used as a dose optimization technique for this examination and patient examination was performed in strict accordance with principles of ALARA. COMPARISON: CT of the head of August 30, 2008. FINDINGS: BRAIN: No hemorrhage, edema or mass effect. No recent infarct. Normal white matter. There is no significant change as compared to previous study. EXTRA-AXIAL SPACES: No fluid collections. No masses. CALVARIUM: No fracture. SINUSES/MASTOIDS: No fluid or mucosal thickening. ORBITS: No significant abnormality. OTHER: No other significant abnormality. IMPRESSION: No acute intracranial abnormality. THIS IS AN ELECTRONICALLY VERIFIED FINAL REPORT 09/24/2024 11:10 PM - Electronically signed by Kathryn Cobb M.D. SN: SN Report ID: [id number] Reading Location: [place] [address] Procedure Note Kathryn Cobb MD - 09/24/2024 EXAM DESCRIPTION: CT HEAD WO CONTRAST REASON FOR STUDY: weak Patient had syncopal type episode at work today, pt blacked out at workand collapsed out of chair. Needed painful stimuli in order to wake up, ptaox4, TECHNIQUE: Axial images acquired through the brain without intravenous contrast. Coronal and sagittal reformats were performed. Images storedon PACS. Automated mA/kV exposure control was used as a dose optimization technique for this examination and patient examination was performed instrict accordance with principles of ALARA. COMPARISON: CT of the head of August 30, 2008. FINDINGS: BRAIN: No hemorrhage, edema or mass effect. No recent infarct. Normal white matter. There is no significant change as compared to previousstudy. EXTRA-AXIAL SPACES: No fluid collections. No masses. CALVARIUM: No fracture. SINUSES/MASTOIDS: No fluid or mucosal thickening. ORBITS: No significant abnormality. OTHER: No other significant abnormality. IMPRESSION: No acute intracranial abnormality. THIS IS AN ELECTRONICALLY VERIFIED FINAL REPORT 09/24/2024 11:10 PM - Electronically signed by Kathryn Cobb M.D. SN: SN Report ID: [id number] Reading Location: [id number] Kaylyn Alaniz MD IM CT PROCEDURES Final R esult * XR Chest 1 Vw Portable (09/24/2024 10:40 PM CDT) Anatomical Region Laterality Modality Body, Chest N/A Computed Radiogr aphy 09/24/2024 10:4 7 PM CDT Narrative 09/24/2024 11:11 PM CDT EXAM DESCRIPTION: XR CHEST 1 VIEW REASON FOR STUDY: syncope Pt BIBEMS with complaint of syncopal type episode, pt blacked out at work collapsed out of chair. Needed painful stimuli in order to wake up, pt aox4, blood sugar 132. Ems states slurred speech is baseline for pt. Pt has no medial hx TECHNIQUE: Frontal radiographic view(s) of the chest. COMPARISON: None available FINDINGS: LUNGS: Mild bibasilar atelectasis. Lungs are otherwise clear. No focal pulmonary parenchymal consolidation, pleural effusion, or pneumothorax. HEART/MEDIASTINUM: Cardiac silhouette normal in size. Mediastinal and hilar contours appear normal. LINES/TUBES: None. BONES: No acute osseous abnormality. IMPRESSION: No acute cardiopulmonary abnormality. THIS IS AN ELECTRONICALLY VERIFIED FINAL REPORT 09/24/2024 11:11 PM - Electronically signed by Miguel A Lozano M.D. AT: AT Report ID: [id number] Reading Location: [id number] Procedure Note Miguel A Lozano MD - 09/24/2024 EXAM DESCRIPTION: XR CHEST 1 VIEW REASON FOR STUDY: syncope Pt BIBEMS with complaint of syncopal type episode, pt blacked out at work collapsed out of chair. Needed painful stimuli in order to wake up, ptaox4, blood sugar 132. Ems states slurred speech is baseline for pt. Pt has no medial hx TECHNIQUE: Frontal radiographic view(s) of the chest. COMPARISON: None available FINDINGS: LUNGS: Mild bibasilar atelectasis. Lungs are otherwise clear. No focal pulmonary parenchymal consolidation, pleural effusion, or pneumothorax. HEART/MEDIASTINUM: Cardiac silhouette normal in size. Mediastinal andhilar contours appear normal. LINES/TUBES: None. BONES: No acute osseous abnormality. IMPRESSION: No acute cardiopulmonary abnormality. THIS IS AN ELECTRONICALLY VERIFIED FINAL REPORT 09/24/2024 11:11 PM - Electronically signed by Miguel A Lozano M.D. AT: AT Report ID: [id number] Reading Location: [place] [address] Kaylyn Alaniz MD IMG XR PROCEDURES Final R esult * Troponin T high-sensitivity series (baseline, 2hr, 4hr, 6hr) (09/24/2024 10:37 PM CDT) Trop T hs <6 <=22 ng/L Comment: Interpretive Data For further hscTnT resources including the diagnostic algorithm and an aid in interpretation, copy and paste this link: https://nrl.testcatalog.org/show/hsTrop Current Interpretive Data last revised 2020. Blood 09/24/2024 10:3 7 PM CDT 09/24/2024 10:40 PM CDT Kaylyn Alaniz MD LAB BLOOD ORDERABLES Erica l Result [facility] [place] [address] * (ABNORMAL) Sepsis Lactate w/ Reflex (09/24/2024 10:37 PM CDT) Sepsis Lactate 8.4(C) 0.7 - 2.0 mmol/L Comment:Critical result call ed to and read back by juan willett (_) on 09/24/2024 22:50:03 CDT to adelia bird. Blood 09/24/2024 10:3 7 PM CDT 09/24/2024 10:40 PM CDT Kaylyn Alaniz MD LAB BLOOD ORDERABLES Erica l Result Performing Organization Address City/[facility]/ZIP Co de Phone Number [facility] ([place]) [address] [facility] [place] [address] * eGFR (09/24/2024 10:37 PM CDT) eGFR >90 >=60 mL/min/1. 73 m2 Comment: Interpretive Data Reference Interval Normal >/= 90 mL/min/1.73m2 Mildly decreased* 60 - 89 mL/min/1.73m2 Mildly to moderately decreased 45 - 59 mL/min/1.73m2 Moderately to severely decreased 30 - 44 mL/min/1.73m2 Severely decreased 15 - 29 mL/min/1.73m2 Kidney Failure < 15 mL/min/1.73m2 *Relative to young adult level Estimated glomerular filtration rate is determined by the 2020 CKD-EPI equation recommended by the National Kidney Foundation (A Unifying Approach to GFR Estimation: Recommendations of the NKF-ASK Task Force on Reassessing the Inclusion of Race in Diagnosing Kidney Disease, JASN 2020). The CKD-EPI equation should not be used for patients with unstable renal function and has not been validated in children and those over 70. Current interpretive data was last reviewed 2021. Blood 09/24/2024 10:3 7 PM CDT 09/24/2024 10:40 PM CDT Kaylyn Alaniz MD LAB BLOOD ORDERABLES Erica l Result [facility] ([place]) 1 [facility] [place] [address] * (ABNORMAL) Differential, auto (09/24/2024 10:37 PM CDT) Neutrophil abs 14.24(H) 1.50 - 6.50 K/cumm Imm gran abs 0.13(H) 0.00 - 0.10 K/cumm [facility] ([place]) Lymphocyte abs 2.72 0.80 - 3.30 K/cumm [facility] ([place]) Monocyte abs 1.33(H) 0.20 - 0.80 K/cumm [facility] ([place]) Eosinophil abs 0.07 0.00 - 0.50 K/cumm [facility] ([place]) Basophil abs 0.13(H) 0.00 - 0.10 K/cumm [facility] ([place]) Neutrophil pct 76.5 % [facility] ([place]) Comment: Interpretive Data Percent cell count reference ranges are not reported, since discordance with absolute values may lead to misinterpretation of CBC data. Current Interpretive Data was last revised on 2017. Imm gran pct 0.7 % [facility] ([place]) Comment: Interpretive Data Percent cell count reference ranges are not reported, since discordance with absolute values may lead to misinterpretation of CBC data. Current Interpretive Data was last revised on 2017. Lymphocyte pct 14.6 % [facility] ([place]) Comment: Interpretive Data Percent cell count reference ranges are not reported, since discordance with absolute values may lead to misinterpretation of CBC data. Current Interpretive Data was last revised on 2017. Monocyte pct 7.1 % [facility] ([place]) Comment: Interpretive Data Percent cell count reference ranges are not reported, since discordance with absolute values may lead to misinterpretation of CBC data. Current Interpretive Data was last revised on 2017. Eosinophil pct 0.4 % [facility] ([place]) Comment: Interpretive Data Percent cell count reference ranges are not reported, since discordance with absolute values may lead to misinterpretation of CBC data. Current Interpretive Data was last revised on 2017. Basophil pct 0.7 % [facility] ([place]) Comment: Interpretive Data Percent cell count reference ranges are not reported, since discordance with absolute values may lead to misinterpretation of CBC data. Current Interpretive Data was last revised on 2017. Blood 09/24/2024 10:3 7 PM CDT 09/24/2024 10:40 PM CDT Kaylyn Alaniz MD LAB BLOOD ORDERABLES Erica l Result [facility] ([place]) [facility] [place] [address] * (ABNORMAL) CBC with auto differential (09/24/2024 10:37 PM CDT) WBC 18.62(H) 3.80 - 9.90 K/cumm Hgb 15.7 13.0 - 17.5 g/dL [facility] ([place]) Hct 46.6 38.9 - 50.3 % [facility] ([place]) Plt 445(H) 150 - 400 K/cumm [facility] ([place]) MPV 9.2 9.1 - 12.3 fL [facility] ([place]) RBC 5.29 4.30 - 5.80 M/cumm [facility] ([place]) MCV 88.1 81.3 - 96.4 fL [facility] ([place]) MCH 29.7 27.1 - 33.3 pg [facility] ([place]) MCHC 33.7 32.3 - 35.7 g/dL [facility] ([place]) RDW CV 12.5 11.1 - 14.9 % [facility] ([place]) RDW SD 40.3 35.7 - 48.1 fL [facility] ([place]) NRBC abs 0.00 0.00 - 0.01 K/cumm [facility] ([place]) Blood 09/24/2024 10:3 7 PM CDT 09/24/2024 10:40 PM CDT us Kaylyn Alaniz MD LAB BLOOD ORDERABLES Erica l Result [facility] ([place]) 1 [facility] [place] [address] * Creatine kinase (CK), total (09/24/2024 10:37 PM CDT) CK 116 40 - 300 Units/L Blood 09/24/2024 10:3 7 PM CDT 09/24/2024 10:40 PM CDT us Kaylyn Alaniz MD LAB BLOOD ORDERABLES Erica rodriguez Result [facility] ([place]) 1 [facility] Department [place] [address] * (ABNORMAL) Comprehensive metabolic panel (09/24/2024 10:37 PM CDT) Sodium 138 135 - 145 mmol/L Potassium, pl 4.4 3.3 - 4.9 mmol/L [facility] ([place]) Chloride 96(L) 97 - 110 mmol/L [facility] ([place]) CO2 19(L) 22 - 32 mmol/L [facility] ([place]) Anion gap 23(H) 2 - 15 mmol/L [facility] ([place]) BUN 10 6 - 25 mg/dL [facility] ([place]) Creatinine 1.06 0.80 - 1.30 mg/dL [facility] ([place]) Glucose 191 70 - 199 mg/dL [facility] ([place]) Comment: Interpretive Data Fasting glucose >/= 126 mg/dl is diagnostic for diabetes. Fasting is defined as no caloric intake for at least 8 hours. Fasting glucose between 100 mg/dl to 125 mg/dl is diagnostic of prediabetes. In a patient with classic symptoms of hyperglycemia or hyperglycemic crisis, a random glucose >/= 200 mg/dl is diagnostic for diabetes. In the absence of unequivocal hyperglycemia, results should be confirmed by repeat testing. The classification and Diagnosis of Diabetes Diabetes Care 2021; 46: S19-S40. Current interpretive data was last revised 2022. Calcium 9.4 8.5 - 10.3 mg/dL [facility] ([place]) Bilirubin, total 0.5 0.1 - 1.2 mg/dL [facility] ([place]) Protein, pl 7.5 6.5 - 8.5 g/dL [facility] ([place]) Albumin 4.7 3.5 - 5.0 g/dL [facility] ([place]) Alk phos 71 40 - 130 Units/L [facility] ([place]) ALT 31 7 - 55 Units/L [facility] ([place]) AST 26 10 - 50 Units/L [facility] ([place]) Comment:Slightly Hemolyzed S pecimen Blood 09/24/2024 10:3 7 PM CDT 09/24/2024 10:40 PM CDT Kaylyn Alaniz MD LAB BLOOD ORDERABLES Erica l Result Performing Organization Address City/[facility]/ZIP Co de Phone Number [facility] ([place]) 1 [facility] [place] [address] * ECG 12 lead (09/24/2024 10:26 PM CDT) 09/24/2024 10:2 6 PM CDT Narrative [facility] - 09/25/2024 6:46 AM CDT Vent Rate: 121 bpm RR Interval: 492 msec GA Interval: 141 msec QRS Duration: 104 msec QT Interval: 308 msec QTC Interval: 380 msec P-R-T Leiter: 34 - 29 - 31 degrees IMPRESSION: SINUS TACHYCARDIA ABNORMAL RHYTHM ECG Electronically Signed By: Gasper Marsh MD Kaylyn Alaniz MD ECG ORDERABLES Final Res ult Performing Organization Address City/[facility] Co de Phone Number [facility] from Last 3 Months Insurance Care Teams Quantitative Associate Relationship Specialty Start Date End Date Rafa Porter MD [address] [place] [address] PCP - General Internal Medicine 09/24/24
--- OUTSIDE RECORDS SUMMARY | 2024-09-25 14:49 | XMS_ITS | Referral Summary ---
Author Organization [facility] [address] [facility] lto Address [address] [place] [address] Care Team Providers Care Lumber Marker Name Role Phone Rafa Porter MD Primary Care Provider [phone] Encounters Date Type Department Care Team Description 09/24/2024 10:22 PM CDT - 09/25/2024 3:08 AM CDT Emergency [facility] [address] [place] [address] Kaylyn Alaniz MD Syncope and collapse (Primary Dx) Discharge Disposition: Discharge to home or self care from Last 3 Months Allergies No known active allergies Social History Tobacco Use Types Packs/Day Years Used Date Smoking Tobacco: Never Assessed Personal Safety Answer Date Recorded Have you ever been in or are you currently in a harmful physical or emotional relationship or is someone making you feel afraid or unsafe? Denies 09/24/2024 Sex and Gender Information Value Date Recorded Sex Assigned at Not on file Legal Sex Male 9:44 AM [employer] Gender Identity Not on file Sexual Orientation Not on file Last Filed Vital Signs Vital Sign Reading [...] Mass Index - - Plan of Treatment Not on file Procedures Procedure Name Priority Date/Time Associated Diagnosis [...] Equivocal [facility] ([place]) Blood 09/25/2024 2:18 AM CDT 09/25/2024 2:22 AM CDT Kaylyn Alaniz MD LAB BLOOD ORDERABLES Erica l Result [facility] ([place]) 1 [facility] Department [place] [address] * eGFR (09/25/2024 2:18 AM CDT) eGFR [...] of Race in Diagnosing Kidney Disease, JASN 202). The CKD-EPI equation should not be used for patients with unstable renal function and has not been validated in children and those over 70. Current interpretive data was last reviewed 2021. Blood 09/25/2024 2:18 AM CDT 09/25/2024 2:22 AM CDT Kaylyn Alaniz MD LAB BLOOD ORDERABLES Erica l Result [facility] ([place]) 1 [facility] [place] [address] * (ABNORMAL) Basic metabolic panel (09/25/2024 2:18 AM CDT) Sodium 138 135 - 145 mmol/L Potassium, pl 3.9 3.3 - 4.9 mmol/L [facility] ([place]) Chloride 102 97 - 110 mmol/L [facility] ([place]) CO2 24 22 - 32 mmol/L [facility] ([place]) Anion gap 12 2 - 15 mmol/L [facility] ([place]) BUN 9 6 - 25 mg/dL [facility] ([place]) Creatinine 0.88 0.80 - 1.30 [...] classification and Diagnosis of Diabetes Diabetes Care 202; 46: S19-S40. Current interpretive data was last revised 2022. Calcium 8.4(L) 8.5 - 10.3 mg/dL [facility] ([place]) Blood 09/25/2024 2:18 AM CDT 09/25/2024 2:22 AM CDT Kaylyn Alaniz MD LAB BLOOD ORDERABLES Erica l Result [facility] ([place]) 1 [facility] [place] [address] * Sepsis Lactate w/ Reflex (09/25/2024 1:22 AM CDT) Pathologist [facility] Sepsis Lactate 1.9 0.7 - 2.0 mmol/L Blood 09/25/2024 1:22 AM CDT 09/25/2024 1:27 AM CDT Kaylyn Alaniz MD LAB BLOOD ORDERABLES Erica l Result Performing Organization Address [facility] Co de Phone Number [facility] ([place]) 1 [place] [address] * Troponin T high-sensitivity 2-hour (09/25/2024 1:21 AM CDT) [facility] Trop T hs 11 <=22 ng/L Comment: Interpretive Data For further hscTnT resources including the diagnostic algorithm and an aid in interpretation, copy and paste this link: https://nrl.testcatalog.org/show/hsTrop Current Interpretive Data last revised 2020. Trop T hs delta 5 ng/L [facility] ([place]) Trop T hs interp Equivocal [facility] ([place]) Blood 09/25/2024 1:21 AM CDT 09/25/2024 1:27 AM CDT Kaylyn Alaniz MD LAB BLOOD ORDERABLES Erica l Result Performing Organization Address City/[facility]/ZIP Co de Phone Number [facility] ([place]) 1 [facility] [place] [address] * Urinalysis reflex to microscopic and culture Urine (09/25/2024 1:21 AM CDT) Pathologist [facility] Color, ur Yellow Yellow Clarity, ur Clear Clear [facility] A ([place]) Specific gravity, ur 1.024 1.003 - 1.030 [facility] ([place]) pH, urine 6.0 [facility] ([place] Comment: Interpretive Data U rine pH is affected by diet, medications, systemic acid-base disturbances, and renal tubular function. pH may affect urinary stone formation. For example, urine pH below 6.0 may help reduce the tendency for calcium phosphate stones and pH greater than 6.0 may reduce the tendency for uric acid stone formation. Source: [facility] Current Interpretive Data was last revised on [...] for microscopic UA and culture not met. [facility] ([place]) Urine 09/25/2024 1:21 AM CDT 09/25/2024 1:27 AM CDT us Kaylyn Alaniz MD LAB MICROBIOLOGY - GENERA L ORDERABLES Final Result [facility] ([place]) 1 [facility] [place] [address] * CT Chest Abdomen Pelvis W Contrast [...] by Kathryn Cobb M.D. SN: Report ID: [id number] Reading Location: [id number] Procedure Note Kathryn Cobb MD - 09/25/2024 [...] by Kathryn Cobb M.D. SN: Report ID: [id number] Reading Location: [id number] Kaylyn Alaniz MD IMG CT PROCEDURES Final [...] by Kathryn Cobb M.D. SN: Report ID: [id number] Reading Location: [id number] Procedure Note Kathryn Cobb MD - 09/24/2024 [...] by Kathryn Cobb M.D. SN: Report ID: [id number] Reading Location: [id number] Kaylyn Alaniz MD IMG CT PROCEDURES Final R esult * XR [...] A Lozano M.D. AT: AT Report ID: [id number] Reading Location: [id number] Procedure Note Miguel A Lozano MD - [...] A Lozano M.D. AT: AT Report ID: [id number] Reading Location: [id number] Kaylyn Alaniz MD IMG XR PROCEDURES Final R esult * Troponin T high-sensitivity series (baseline, 2hr, 4hr, 6hr) (09/24/2024 10:37 PM CDT) [facility] Trop T hs <6 <=22 ng/L Comment: Interpretive Data For further hscTnT resources including the diagnostic algorithm and an aid in interpretation, copy and paste this link: https://nrl.testcatalog.org/show/hsTrop Current Interpretive Data last revised 2020. Blood 09/24/2024 10:3 7 PM CDT 09/24/2024 10:40 PM CDT Kaylyn Alaniz MD LAB BLOOD ORDERABLES Erica l Result Performing Organization Address City/[facility]/ZIP Co de Phone Number [facility] [place]) 1 [facility] [place] [address] * (ABNORMAL) Sepsis Lactate w/ Reflex (09/24/2024 10:37 PM CDT) [facility] Sepsis Lactate 8.4(C) 0.7 - 2.0 mmol/L Comment:Critical result call ed to and read back by _camilla willett (_) on 09/24/2024 22:50:03 CDT to adelia bird. Blood 09/24/2024 10:3 7 PM CDT 09/24/2024 10:40 PM CDT Kaylyn Alaniz MD LAB BLOOD ORDERABLES Erica l Result [facility] ([place]) 1 [facility] [place] [address] * eGFR (09/24/2024 10:37 PM CDT) [facility] eGFR >90 >=60 mL/min/1. 73 m2 Comment: [...] BLOOD ORDERABLES Erica rodriguez Result [facility] ([place]) 1 [facility] [place] [address] * (ABNORMAL) Differential, auto (09/24/2024 10:37 PM [...] revised on 2017. Monocyte pct 7.1 % [facility] ([place]) Comment: Interpretive Data Percent cell [...] revised on 2017. Basophil pct 0.7 % [facility] ([place]) Comment: Interpretive Data Percent cell count reference ranges are not reported, since discordance with absolute values may lead to misinterpretation of CBC data. Current Interpretive Data was last revised on 2017. Blood 09/24/2024 10:3 7 PM CDT 09/24/2024 10:40 PM CDT us Kaylyn Alaniz MD LAB BLOOD ORDERABLES Erica rodriguez Result [facility] ([place]) 1 [facility] [place] [address] * (ABNORMAL) CBC with auto differential (09/24/2024 10:37 PM CDT) WBC 18.62(H) 3.80 - 9.90 K/cumm Hgb 15.7 13.0 - 17.5 g/dL [facility] ([place]) Hct 46.6 38.9 - 50.3 % [facility] ([place]) Plt 445(H) 150 - 400 K/cumm [facility] ([place]) MPV 9.2 9.1 - 12.3 fL [facility] ([place]) RBC 5.29 4.30 - 5.80 M/cumm [facility] ([place]) MCV 88.1 81.3 - 96.4 fL [facility] ([place]) MCH 29.7 27.1 - 33.3 pg [facility] ([place]) MCHC 33.7 32.3 - 35.7 g/dL [facility] ([place]) RDW CV 12.5 11.1 - 14.9 % [facility] ([place]) RDW SD 40.3 35.7 - 48.1 fL [facility] ([place]) NRBC abs 0.00 0.00 - 0.01 K/cumm [facility] ([place]) Blood 09/24/2024 10:3 7 PM CDT 09/24/2024 10:40 PM CDT Kaylyn Alaniz MD LAB BLOOD ORDERABLES Erica l Result Performing Organization Address City/[facility]/ZIP Co de Phone Number [facility] ([place]) 1 [facility] [place] [address] * Creatine kinase (CK), total (09/24/2024 10:37 PM CDT) Pathologist [facility] CK 116 40 - 300 Units/L Blood 09/24/2024 10:3 7 PM CDT 09/24/2024 10:40 PM CDT Kaylyn Alaniz MD LAB BLOOD ORDERABLES Erica l Result [facility] ([place]) 1 [facility] [place] [address] * (ABNORMAL) Comprehensive metabolic panel (09/24/2024 10:37 PM CDT) Pathologist [facility] Sodium 138 135 - 145 mmol/L Potassium, pl 4.4 3.3 - 4.9 mmol/L [facility] ([place]) Chloride 96(L) 97 - 110 mmol/L [facility] ([place]) CO2 19(L) 22 - 32 [...] ([place]) AST 26 10 - 50 Units/L [facility] ([place]) Comment:Slightly Hemolyzed S pecimen Blood 09/24/2024 10:3 7 PM CDT 09/24/2024 10:40 PM CDT us Kaylyn Alaniz MD LAB BLOOD ORDERABLES Erica rodriguez Result [facility] ([place]) 1 [facility] [place] [address] * ECG 12 lead (09/24/2024 10:26 PM CDT) 09/24/2024 10:2 6 PM CDT Narrative [facility] - 09/25/2024 6:46 AM CDT Vent Rate: 121 bpm RR Interval: 492 msec AR Interval: 141 msec QRS Duration: 104 msec QT Interval: 308 msec QTC Interval: 380 msec P-R-T Nor[place]: 34 - 29 - 31 degrees IMPRESSION: SINUS TACHYCARDIA ABNORMAL RHYTHM ECG Electronically Signed By: Gasper Marsh MD us Kaylyn Alaniz MD ECG ORDERABLES Final Res ult [facility] from Last 3 Months Insurance Care Teams Lumber Marker Relationship Specialty Start Date End Date Rafa Porter MD [address] [place] [address] PCP - General Internal Medicine 09/24/24
--- OUTSIDE RECORDS SUMMARY | 2024-09-25 14:49 | XMS_ITS | Encounter Summary ---
Author Organization [facility] Healthcare Address [address] [place] [address] Care Team Providers Care Clerical Office Worker Name Role Phone Rafa Porter MD Primary Care Provider [phone] Reason for Visit * Reason Comments Syncope Encounter Details Date Type Department Care Team (Late st Contact Info) Description 09/24/2024 10:22 PM CDT - 09/25/2024 3:08 AM CDT Emergency [facility] Emergency Department [address] [place] [address] Kaylyn Alaniz MD [address] [place] [address] [place] [address] Syncope and collapse (Primary Dx) Discharge Disposition: Discharge to home or self care Social History Tobacco Use Types Packs/Day Years Used Date Smoking Tobacco: Never Assessed Personal Safety Answer Date Recorded Have you ever been in or are you currently in a harmful physical or emotional relationship or is someone making you feel afraid or unsafe? 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 Rest tomorrow Follow-up with your doctor in 2-3 days. Return to the ER with worsening symptoms or with concerns. documented in this encounter Discharge Disposition Disposition Code Departure Means Destination Comment s Discharge to home or self care documented in this encounter ED Notes * Kaylyn Alaniz MD - 09/24/2024 11:32 PM CDT HPI Chief Complaint Patient presents with Syncope 10:23 PM 09/24/2024 Patient is a 33 year old male with no significant past medical history, who presents to the ED via EMS for evaluation following a witnessed syncopal episode at work [employer]. 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 Patient states that two hours later he was sitting at a computer when he had a syncopal episode. Coworker reported to EMS that they witnessed the syncopal episode and confirmed that the patient did not hit his head. EMS reports that the patient was initially in sinus tachycardia with a heart rate in the 140s-150s. Patient denies a history of syncope. Patient reports associated nausea and a headache. Patient has been hydrating appropriately. Patient denies changes in appetite. No history of cardiac disease. Patient denies a history of asthma, diabetes, or hypertension. No further complaints at this time. History provided by: Patient egg packer used: No Patient History: No past medical history on file. Review of Systems Review of Systems Gastrointestinal: Positive for nausea. Neurological: Positive for syncope, light-headedness and headaches. All other systems reviewed and are negative. Physical Exam ED Triage Vitals Temp Pulse Resp BP SpO2 09/24/24 2229 09/24/24 2225 09/24/24 2225 09/24/24 222409/24/242224 37.1 ??C (98.8 ??F) (!) 128 20 143/99 92 % Temp src Heart Rate Source Patient Position BP Location FiO2 (%) -- -- -- -- -- Height Height Method Weight Weight Method -- -- 09/24/24222609/24/242226 (!) 143.3 kg (315 lb 14.4 oz) Bed scale Physical Exam Vitals and nursing note reviewed. Constitutional: General: He is not in acute distress. Appearance: Normal appearance. He is obese. He is diaphoretic. He is not ill- appearing or toxic-appearing. Comments: Covered in dirt from his job. Slightly diaphoretic. HENT: Head: Normocephalic and atraumatic. Right Ear: External ear normal. Left Ear: External ear normal. Nose: Nose normal. Mouth/Throat: Mouth: Mucous membranes are moist. Pharynx: Oropharynx is clear. Eyes: Extraocular Movements: Extraocular movements intact. Conjunctiva/sclera: Conjunctivae normal. Pupils: Pupils are equal, round, and reactive to light. Cardiovascular: Rate and Rhythm: Regular rhythm. Tachycardia present. Pulses: Normal pulses. Heart sounds: Normal heart sounds. Pulmonary: Effort: Pulmonary effort is normal. Breath sounds: Normal breath sounds. Abdominal: General: Abdomen is flat. Bowel sounds are normal. Palpations: Abdomen is soft. Tenderness: There is no abdominal tenderness. Musculoskeletal: General: No swelling. Normal range of motion. Cervical back: Normal range of motion and neck supple. Right lower leg: No edema. Left lower leg: No edema. Skin: General: Skin is warm. Capillary Refill: Capillary refill takes less than 2 seconds. Findings: No rash. Neurological: General: No focal deficit present. Mental Status: He is alert and oriented to person, place, and time. Mental status is at baseline. Cranial Nerves: No cranial nerve deficit. Sensory: No sensory deficit. Motor: No weakness. Psychiatric: Mood and Affect: Mood normal. Behavior: Behavior normal. [facility] Labs Reviewed CBC WITH AUTO DIFFERENTIAL - Abnormal Result Value WBC 18.62 (*) Hgb 15.7 Hct 46.6 Plt 445 (*) MPV 9.2 RBC 5.29 MCV 88.1 MCH 29.7 MCHC 33.7 RDW CV 12.5 RDW SD 40.3 NRBC abs 0.00 COMPREHENSIVE METABOLIC PANEL - Abnormal Sodium 138 Potassium, pl 4.4 Chloride 96 (*) CO2 19 (*) Anion gap 23 (*) BUN 10 Creatinine 1.06 Glucose 191 Calcium 9.4 Bilirubin, total 0.5 Protein, pl 7.5 Albumin 4.7 Alk phos 71 ALT 31 AST 26 SEPSIS LACTATE WITH REFLEX - Abnormal Sepsis Lactate 8.4 (*) DIFFERENTIAL AUTO - Abnormal Neutrophil abs 14.24 (*) Imm gran abs 0.13 (*) Lymphocyte abs 2.72 Monocyte abs 1.33 (*) Eosinophil abs 0.07 Basophil abs 0.13 (*) Neutrophil pct 76.5 Imm gran pct 0.7 Lymphocyte pct 14.6 Monocyte pct 7.1 Eosinophil pct 0.4 Basophil pct 0.7 BASIC METABOLIC PANEL - Abnormal Sodium 138 Potassium, pl 3.9 Chloride 102 CO2 24 Anion gap 12 BUN 9 Creatinine 0.88 Glucose 105 Calcium 8.4 (*) URINALYSIS AND REFLEX TO MICROSCOPIC AND CULTURE Color, ur Yellow Clarity, ur Clear Specific gravity, ur 1.024 pH, urine 6.0 Protein, ur ql Trace Glucose, ur ql Negative Ketones, ur Trace Bilirubin, ur Negative Blood, ur Negative Urobilinogen, ur <2.0 Nitrite, ur Negative Leukocyte esterase, ur Negative UA reflex comment Value: Reflex conditions for microscopic UA and culture not met. CREATINE KINASE (CK), TOTAL CK 116 TROPONIN T HIGH-SENSITIVITY SERIES (BASELINE, 2HR, 4HR, 6HR) Trop T hs <6 TROPONIN T HIGH-SENSITIVITY 2-HOUR Trop T hs 11 Trop T hs delta 5 Trop T hs interp Equivocal TROPONIN T HIGH-SENSITIVITY 4-HR Trop T hs 11 Trop T hs delta 5 Trop T hs interp Equivocal SEPSIS LACTATE WITH REFLEX Sepsis Lactate 1.9 EGFR eGFR >90 EGFR eGFR >90 TROPONIN T HIGH-SENSITIVITY 6-HOUR CT Chest Abdomen Pelvis W Contrast Final Result CT Head WO Contrast Final Result XR Chest 1 Vw Portable Final Result BP 143/99 Pulse 79 Temp 37.1 ??C (98.8 ??F) Resp 20 Wt (!) 143.3 kg (315 lb 14.4 oz) MnY756% Procedures Medical Decision Making Differential includes syncope likely secondary to overheating, infection, ACS, rhabdo, unlikely seizure,other Amount and/or Complexity of Data Reviewed Labs: ordered. Decision-making details documented in ED Course. Radiology: ordered. ECG/medicine tests: ordered. Risk OTC drugs. Prescription drug management. ED Course as of 09/25/24 0256 Time: 09/24 2299 Value: WBC(!): 18.62 Comment: (Reviewed) By: Kaylyn Alaniz MD Time: 09/24 2299 Value: Lactate(!!): 8.4 Comment: (Reviewed) By: Kaylyn Alaniz MD Time: 09/24 2321 Value: Anion gap(!): 23 Comment: (Reviewed) By: Kaylyn Alaniz MD Time: 09/24 2321 Comment: Dr Guzman - [facility] med checked in By: Kaylyn Alaniz MD Time: 09/26 31 Comment: EKG done 05/08/2025 sinus tach rate [address] changes By: Kaylyn Alaniz MD Time: 09/25 252 Comment: Rechecked patient. Condition is improved. Discussed the results of ED findings, and the plan for discharge. Recommended follow up with PCP or return to ED for new or worsening symptoms. Patient understands and agrees with plan. All other questions have been addressed. By: Danette Layton Final diagnoses: Syncope and collapse Danette Layton scribed for Kaylyn Alaniz MD, in the doctor's presence. I electronically signed this note at 11:35 PM on 09/24/2024. I, Kaylyn Alaniz MD, have personally performed the services described in the documentation, reviewed the documentation, as recorded by the scribe in my presence, and it accurately and completely records my words and actions. Danette Layton 09/24/24 2330 Kaylyn Alaniz MD 09/25/24255 * Aries Mane RN - 09/24/2024 10:22 PM CDT Bed: ED01 Expected date: Expected time: Means of arrival: Comments: SF 354 Aries Mane RN 09/24/242221 * Johnna Watkins RN - 09/24/2024 10:21 PM CDT Pt BIBEMS with complaint of syncopal type episode, pt blacked out at work collapsed out of chair. Needed painful stimuli in order to wake up, pt aox4, blood sugar 132. Ems states slurred speech is baseline for pt. Pt has no medial hx per pt. documented in this encounter Plan of Treatment Not on file documented as of this encounter Procedures Procedure Name Priority Date/Time Associated Diagnosis Comments TROPONIN T HIGH-SENSITIVITY 4-HR Timed 09/25/2024 2:18 AM CDT EGFR STAT 09/25/2024 2:18 AM CDT BASIC METABOLIC PANEL STAT 09/25/2024 2:18 AM CDT SEPSIS LACTATE WITH [...] 1 VIEW ED 09/24/2024 10:40 PM CDT TROPONIN T HIGH-SENSITIVITY SERIES (BASELINE, 2HR, 4HR, 6HR) STAT 09/24/2024 10:37 PM CDT SEPSIS LACTATE WITH REFLEX STAT 09/24/2024 10:37 PM CDT EGFR STAT 09/24/2024 10:37 PM CDT DIFFERENTIAL AUTO STAT 09/24/2024 10: 37 PM CDT CBC WITH AUTO DIFFERENTIAL STAT 09/24/2024 10:37 PM CDT CREATINE KINASE (CK), TOTAL STAT 09/24/2024 10:37 PM CDT COMPREHENSIVE METABOLIC PANEL STAT 09/24/2024 10:37 PM CDT ECG 12-LEAD Routine 09/24/2024 10:26 PM CDT documented in this encounter Results * eGFR (09/25/2024 2:18 AM CDT) eGFR [...] MD LAB BLOOD ORDERABLES Erica l Result [facility] ([place] 1 [facility] [place] [address] * (ABNORMAL) Basic metabolic panel (09/25/2024 2:18 AM CDT) Sodium 138 135 - 145 mmol/L Potassium, pl 3.9 3.3 - 4.9 mmol/L [facility] ([place] Chloride 102 97 - 110 mmol/L [facility] CO2 24 22 - 32 mmol/L [facility] Anion gap 12 2 - 15 mmol/L [facility] BUN 9 6 - 25 mg/dL [facility] Creatinine 0.88 0.80 - 1.30 mg/dL [facility] Glucose 105 70 - 199 mg/dL [facility] Comment: Interpretive Data Fasting glucose [...] 2022. Calcium 8.4(L) 8.5 - 10.3 mg/dL [facility] Blood 09/25/2024 2:18 AM CDT 09/25/2024 2:22 AM CDT Kaylyn Alaniz MD LAB BLOOD ORDERABLES Erica l Result [facility] ([place]) 1 [facility] [place] [address] * Troponin T high-sensitivity 4-hour (09/25/2024 2:18 [...] LAB BLOOD ORDERABLES Erica l Result [facility] ([place]) 1 [facility] [place] [place] [address] * Sepsis Lactate w/ Reflex (09/25/2024 1:22 AM CDT) Sepsis Lactate 1.9 0.7 - 2.0 mmol/L Blood 09/25/2024 1:22 AM CDT 09/25/2024 1:27 AM CDT Kaylyn Alaniz MD LAB BLOOD ORDERABLES Erica l Result Performing Organization Address [facility] Co de Phone Number [facility] ([place] 1 [facility] [place] [place] [address] * Troponin T high-sensitivity 2-hour (09/25/2024 1:21 AM CDT) Pathologist [facility] Trop T hs 11 <=22 ng/L Comment: Interpretive Data For further hscTnT resources including the diagnostic algorithm and an aid in interpretation, copy and paste this link: https://nrl.testcatalog.org/show/hsTrop Current Interpretive Data last revised 2020. Trop T hs delta 5 ng/L [facility]) Trop T hs interp Equivocal [facility] ([place]) Blood 09/25/2024 1:21 AM CDT 09/25/2024 1:27 AM CDT Kaylyn Alaniz MD LAB BLOOD ORDERABLES Erica l Result Performing Organization Address City/[facility]/ZIP Co de Phone Number [facility] ([place] 1 [facility] [place] [address] * Urinalysis reflex to microscopic and culture Urine (09/25/2024 1:21 AM CDT) Color, ur Yellow Yellow Clarity, ur Clear Clear [facility] ([place]) Specific gravity, ur 1.024 1.003 - 1.030 [...] tendency for uric acid stone formation. Source: [facility] [employer] Current Interpretive Data was last revised on [...] - GENERA L ORDERABLES Final Result [facility] ([place]) 1 [facility] [place] [address] * CT Chest Abdomen Pelvis W Contrast [...] by Kathryn Cobb M.D. SN: Report ID: [id number] Reading Location: [id number] Procedure Note Kathryn Cobb MD - 09/25/2024 [...] Kathryn Cobb M.D. SN: SN Report ID: [id number] Reading Location: [id number] Kaylyn Alaniz MD IMG CT PROCEDURES Final [...] by Kathryn Cobb M.D. SN: Report ID: [id number] Reading Location: [id number] Procedure Note Kathryn Cobb MD - 09/24/2024 [...] by Kathryn Cobb M.D. SN: Report ID: [id number] Reading Location: [id number] Kaylyn Alaniz MD IMG CT PROCEDURES Final [...] A Lozano M.D. AT: AT Report ID: [id number] Reading Location: [id number] Procedure Note Miguel A Lozano MD - [...] A Lozano M.D. AT: AT Report ID: [id number] Reading Location: [id number] Kaylyn Alaniz MD IMG XR PROCEDURES Final R esult * eGFR (09/24/2024 10:37 PM CDT) eGFR [...] MD LAB BLOOD ORDERABLES Erica l Result [facility] 1 [facility] Department [place] [address] * (ABNORMAL) Differential, auto (09/24/2024 10:37 PM [...] BLOOD ORDERABLES Erica rodriguez Result [facility] ([place]) 1 [facility] Department [place] [address] * Troponin T high-sensitivity series (baseline, 2hr, 4hr, 6hr) (09/24/2024 10:37 PM CDT) Pathologist [facility] Trop T hs <6 <=22 ng/L Comment: Interpretive Data For further hscTnT resources including the diagnostic algorithm and an aid in interpretation, copy and paste this link: https://nrl.testcatalog.org/show/hsTrop Current Interpretive Data last revised 2020. Blood 09/24/2024 10:3 7 PM CDT 09/24/2024 10:40 PM CDT Kaylyn Alaniz MD LAB BLOOD ORDERABLES Erica l Result [facility] ([place]) [address] [place] [address] [employer] [place] [place] [address] * Creatine kinase (CK), total (09/24/2024 10:37 PM CDT) [facility] CK 116 40 - 300 Units/L Blood 09/24/2024 10:3 7 PM CDT 09/24/2024 10:40 PM CDT Kaylyn Alaniz MD LAB BLOOD ORDERABLES Erica l Result Performing Organization Address City/[facility]/ZIP Co de Phone Number [facility] ([place]) [address] [place] [address] [place] [place] [address] * (ABNORMAL) Sepsis Lactate w/ Reflex (09/24/2024 10:37 PM CDT) [facility] Sepsis Lactate 8.4(C) 0.7 - 2.0 mmol/L Comment:Critical result call ed to and read back by juan willett (_) on 09/24/2024 22:50:03 CDT to adelia bird. Blood 09/24/2024 10:3 7 PM CDT 09/24/2024 10:40 PM CDT Kaylyn Alaniz MD LAB BLOOD ORDERABLES Erica michael Result [facility] ([place]) 1 [facility] Department [place] [address] * (ABNORMAL) Comprehensive metabolic panel (09/24/2024 10:37 [...] PM CDT 09/24/2024 10:40 PM CDT Kaylyn Aalniz MD LAB BLOOD ORDERABLES Erica rodriguez Result Performing Organization Address City/[facility]/ZIP Co de Phone Number [facility] ([place]) 1 [facility] [place] [address] * (ABNORMAL) CBC with auto differential (09/24/2024 [...] ORDERABLES Erica l Result Performing Organization Address City/[facility]/ZIP Co de Phone Number [facility] ([place]) 1 [facility] [place] [place] [address] * ECG 12 lead (09/24/2024 10:26 PM CDT) 09/24/2024 10:2 6 PM CDT Narrative [facility] - 09/25/2024 6:46 AM CDT Vent Rate: 121 bpm RR Interval: 492 msec RI Interval: 141 msec QRS Duration: 104 msec QT Interval: 308 msec QTC Interval: 380 msec P-R-T [place]: 34 - 29 - 31 degrees IMPRESSION: SINUS TACHYCARDIA ABNORMAL RHYTHM ECG Electronically Signed By: Gasper Marsh MD us Kaylyn Alaniz MD ECG ORDERABLES Final Res ult [facility] documented in this encounter Visit Diagnoses Diagnosis Syncope and collapse- Primary documented in this encounter Administered Medications Inactive Administered Medications - up to 3 most recent administrations Medication Order MAR Action Action Date Dose Rate Site acetaminophen (TYLENOL) tablet 1,000 mg 1,000 mg, oral, Once, On Sun09/24/24 at 2232, For 1 dose Given 09/24/2024 10:39 PM CDT 1,000 mg ioversoL (OPTIRAY 350) syringe 100 mL 100 mL, intravenous, Once in imaging, contrast, Starting on Nereida 09/25/24 at 0048, For 1 dose Contrast Given 09/25/2024 1:09 AM CDT 100 mL ondansetron (ZOFRAN) injection 4 mg 4 mg, intravenous, Administer over 2 Minutes, Once, On Sun09/24/24 at 2232, For 1 dose, Indications: Nausea, VomitingIndications:Nause a,Vomiting Given 09/24/2024 10:39 PM CDT 4 mg sodium chloride 0.9% bolus 1,000 mL 1,000 mL, intravenous, at 999 mL/hr, Administer over 1 Hours, Once, On Sun09/24/24 at 2233, For 1 dose New Bag 09/24/2024 10:40 PM CDT 1,000 mL 999 mL/hr sodium chloride 0.9% infusion 100 mL/hr, intravenous, Continuous, Starting on Sun09/24/24 at 2327 New Bag 09/25/2024 1:20 AM CDT 100 mL/hr 100 mL/hr documented in this encounter Active and Recently Administered Medications Times are shown in CDT. Scheduled Medication Order 09/23/2024 09/24/2024 09/25/2024 acetaminophen (TYLENOL) tablet 1,000 mg (COMPLETED) 1,000 mg, oral, Once, On Sun09/24/24 at 2232, For 1 dose 2239 (Given - Provider: Johnna Watkins RN) ondansetron (ZOFRAN) injection 4 mg (COMPLETED) 4 mg, intravenous, Administer over 2 Minutes, Once, On Sun09/24/24 at 2232, For 1 dose, Indications: Nausea, Vomiting 223 (Given - Provider: Johnna Watkins, ADRIANA) sodium chloride 0.9% bolus 1,000 mL (COMPLETED) 1,000 mL, intravenous, at 999 mL/hr, Administer over 1 Hours, Once, On Sun09/24/24 at 2233, For 1 dose 2240 (New Bag - Provider: Johnna Watkins RN) 0120 (Stopped - Provider: Radha Frye RN) Continuous Medication Order 09/23/2024 09/24/2024 09/25/2024 sodium chloride 0.9% infusion 100 mL/hr, intravenous, Continuous, Starting on Sun09/24/24 at 2327 0120 (New Bag - Prov ider: Johnna Watkins RN)0300 (Stopped - Provider: Radha Frye RN) PRN Medication Order 09/23/2024 09/24/2024 09/25/2024 ioversoL (OPTIRAY 350) syringe 100 mL (COMPLETED) 100 mL, intravenous, Once in imaging, contrast, Starting on Sun09/25/24 at 0048, For 1 dose 0109 (Contrast Given - Provider: Patsy Ewing, RT) documented in this encounter Orders EKG Orders Without Results Count Last Ordered D ate First Ordered Date ECG 12-LEAD 1 09/24/2024 Nursing Count Last Ordered Date First Orde red Date CONTINUOUS PULSE OXIMETRY 1 09/24/2024 documented in this encounter Care Teams Clerical Office Worker Relationship Specialty Start Date End Date Rafa Porter MD [address] [place] [address] PCP - General Internal Medicine 09/24/24 documented as of this encounter
[2024-09-25 15:01] LABS: Hematocrit 43.3 % (40.0-54.0); Hemoglobin 14.3 g/dL (14.0-18.0); Mean Corpuscular HGB Conc 33.0 g/dL (32-36); Mean Corpuscular Hemoglobin 29.4 pg (27.0-31.0); Mean Corpuscular Volume 88.9 fL (78.0-102.0); Platelet Count Result 366 K/mm3 (150-420); Red Blood Count 4.87 M/mm3 (4.70-6.10); White Blood Count 14.8 K/mm3 (4.8-10.8)
[2024-09-25 15:02] LABS: Add Urine Microscopic? YES; Appearance Urine Clear (Clear); Glucose Urine UA Negative (Negative); Leukocyte Esterase Ur Negative (Negative); Nitrate Urine Negative (Negative); Specific Grav Ur 1.020 (1.010-1.020)
[2024-09-25 15:32] LABS: Alanine Aminotransferase 36 U/L (6-50); Albumin Level 4.1 g/dL (3.5-5.1); Alkaline Phosphatase 53 U/L (38-126); Anion Gap 6 mmol/L (4-12); Aspartate Amino Transferase 35 U/L (17-59); Bilirubin,Total 0.8 mg/dL (0.2-1.3); Blood Urea Nitrogen 10 mg/dL (9-20); CRP 1.0 mg/dL (<1.0); Calcium 8.4 mg/dL (8.4-10.2); Carbon Dioxide 30 mmol/L (22-30); Chloride 105 mmol/L (98-107); Estimated Glomerular Filt Rate > 60; Glucose 123 mg/dL (65-110); Magnesium 2.1 mg/dL (1.6-2.3); Osmolality Calculated 292 mOsm/kg (285-295); Potassium 3.8 mmol/L (3.4-5.0); Sodium 141 mmol/L (137-145); Total Protein 6.7 g/dL (6.3-8.2)
[2024-09-25 15:46] LABS: Free T4 Free Thyroxine 0.92 ng/dL (0.78-2.19)
[2024-09-25 16:00] LABS: Thyroid Stimulating Hormone 1.000 uIU/mL (0.465-4.680)
== END 2024-09-25 14:43 | disposition home or self-care (01) ==
PROVIDERS: PCP Internal Medicine; Visit Provider Nurse Practitioner Family
DX: R42 Dizziness and giddiness (principal); T67.1XXD Heat syncope, subsequent encounter
CPT/HCPCS: 36415; 80053; 81001; 83735; 84439; 84443; 85027; 85652; 86140

== ENCOUNTER 2024-09-26 09:20 | Outpatient (CLI) | payer OTHER, SELFPAY ==
--- OUTSIDE RECORDS SUMMARY | 2024-09-26 09:28 | XMS_ITS | Clinical Summary ---
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 Gender Identity Not on file Sexual [...] T hs interp Equivocal [facility] ([place]) Blood 09/25/2024 2:18 AM CDT 09/25/2024 2:22 AM CDT us Kaylyn Alaniz MD LAB BLOOD ORDERABLES Erica l Result [facility] ([place]) 1 [facility] [place] [address] * eGFR (09/25/2024 2:18 AM [...] MD LAB BLOOD ORDERABLES Erica rodriguez Result [facility] ([place]) 1 [facility] [place] [address] * (ABNORMAL) Basic metabolic panel (09/25/2024 2:18 [...] BLOOD ORDERABLES Erica l Result [facility] ([place]) 1 [facility] [employer] [place] [address] * Sepsis Lactate w/ Reflex (09/25/2024 1:22 AM CDT) Sepsis Lactate 1.9 0.7 - 2.0 mmol/L Blood 09/25/2024 1:22 AM CDT 09/25/2024 1:27 AM CDT Kaylyn Alaniz MD LAB BLOOD ORDERABLES Erica l Result [facility] ([place]) [address] [place] [address] [place] [address] * Troponin T high-sensitivity 2-hour (09/25/2024 1:21 [...] Erica l Result [facility] ([place]) 1 [facility] [place] [address] * Urinalysis reflex to microscopic and culture [...] tendency for uric acid stone formation. Source: [facility] Current Interpretive Data was last revised on [...] - GENERA L ORDERABLES Final Result [facility] ([place]) 1 [facility] [place] [address] * CT Chest Abdomen Pelvis W Contrast [...] by Kathryn Cobb M.D. SN: Report ID: [id number] Reading Location: [id number] Procedure Note Kathryn Cobb MD - 09/25/2024 [...] by Kathryn Cobb M.D. SN: Report ID: [id number] Reading Location: [place] [address] Kaylyn Alaniz MD IMG CT PROCEDURES Final [...] Kathryn Cobb M.D. SN: SN Report ID: [id number] Reading Location: [place] [address] Procedure Note Kathryn Cobb MD - 09/24/2024 [...] Kathryn Cobb M.D. SN: SN Report ID: [id number] Reading Location: [id number] Kaylyn Alaniz MD IM CT PROCEDURES Final [...] A Lozano M.D. AT: AT Report ID: [id number] Reading Location: [id number] Procedure Note Miguel A Lozano MD - [...] A Lozano M.D. AT: AT Report ID: [id number] Reading Location: [place] [address] Kaylyn Alaniz MD IMG XR PROCEDURES Final [...] BLOOD ORDERABLES Erica l Result [facility] [place] 1 [facility] [place] [address] * (ABNORMAL) Sepsis Lactate w/ Reflex (09/24/2024 10:37 PM CDT) Sepsis Lactate 8.4(C) 0.7 - 2.0 mmol/L Comment:Critical result call ed to and read back by juan willett (_) on 09/24/2024 22:50:03 CDT to adelia bird. Blood 09/24/2024 10:3 7 PM CDT 09/24/2024 10:40 PM CDT Kaylyn Alaniz MD LAB BLOOD ORDERABLES Erica l Result Performing Organization Address City/[facility]/ZIP Co de Phone Number [facility] ([place]) 1 [facility] [employer] [place] [address] * eGFR (09/24/2024 10:37 PM CDT) eGFR [...] BLOOD ORDERABLES Erica l Result [facility] ([place]) 1 [facility] [place] [address] * (ABNORMAL) Differential, auto (09/24/2024 10:37 PM [...] Erica l Result [facility] ([place]) 1 [facility] [place] [address] * (ABNORMAL) CBC with auto differential (09/24/2024 [...] Erica l Result [facility] ([place]) 1 [facility] [place] [address] * Creatine kinase (CK), total (09/24/2024 10:37 PM CDT) CK 116 40 - 300 Units/L Blood 09/24/2024 10:3 7 PM CDT 09/24/2024 10:40 PM CDT us Kaylyn Alaniz MD LAB BLOOD ORDERABLES Erica rodriguez Result [facility] ([place]) 1 [facility] Department [place] [address] * (ABNORMAL) Comprehensive metabolic panel (09/24/2024 10:37 [...] ORDERABLES Erica l Result Performing Organization Address City/[facility]/ZIP Co de Phone Number [facility] ([place]) 1 [facility] [place] [address] * ECG 12 lead (09/24/2024 10:26 PM CDT) 09/24/2024 10:2 6 PM CDT Narrative [facility] - 09/25/2024 6:46 AM CDT Vent Rate: 121 bpm RR Interval: 492 msec SD Interval: 141 msec QRS Duration: 104 msec QT Interval: 308 msec QTC Interval: 380 msec P-R-T [place]: 34 - 29 - 31 degrees IMPRESSION: SINUS TACHYCARDIA ABNORMAL RHYTHM ECG Electronically Signed By: Gasper Marsh MD Kaylyn Alaniz MD ECG ORDERABLES Final Res ult Performing Organization Address City/[facility] Co de Phone Number [facility] from Last 3 Months Insurance Care Teams Wharf Builder Relationship Specialty Start Date End Date Rafa Porter MD [address] [place] [address] PCP - General Internal Medicine 09/24/24
--- OUTSIDE RECORDS SUMMARY | 2024-09-26 09:29 | XMS_ITS | Encounter Summary ---
Author Organization [facility] Healthcare Address [address] [place] [address] Care Team Providers Care Zinc Plater Name Role Phone Rafa Porter MD Primary Care Provider [phone] Reason for Visit * Reason Comments Syncope Encounter Details Date Type Department Care Team (Late st Contact Info) Description 09/24/2024 10:22 PM CDT - 09/25/2024 3:08 AM CDT Emergency [facility] Emergency Department 1 [place] [address] Kaylyn Alaniz MD [address] [place] [address] [place] [address] Syncope and collapse (Primary Dx) Discharge Disposition: [...] on file 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 History provided by: Patient metal fabricating inspector used: No Patient History: No past medical [...] and Affect: Mood normal. Behavior: Behavior normal. [facility] Labs Reviewed CBC WITH AUTO DIFFERENTIAL [...] (!) 143.3 kg (315 lb 14.4 oz) [id number]% Procedures Medical Decision Making Differential includes syncope [...] Time: 09/24 2321 Comment: Dr Guzman - [facility] med checked in By: Kaylyn Alaniz MD [...] my words and actions. Danette Layton 09/24/24 2336 Kaylyn Alaniz MD 09/25/24255 * Aries Mane [...] MD LAB BLOOD ORDERABLES Erica l Result [facility] ([place]) 1 [facility] [place] [address] * (ABNORMAL) Basic metabolic panel (09/25/2024 2:18 AM CDT) Sodium 138 135 - 145 mmol/L Potassium, pl 3.9 3.3 - 4.9 mmol/L [facility] ([place]) Chloride 102 97 - 110 mmol/L [facility] ([place]) CO2 24 22 - 32 mmol/L [facility] ([place]) Anion gap 12 2 - 15 mmol/L [facility] ([place]) BUN 9 6 - 25 [...] BLOOD ORDERABLES Erica l Result [facility] ([place]) 1 [facility] [place] [address] * Troponin T high-sensitivity 4-hour (09/25/2024 2:18 [...] LAB BLOOD ORDERABLES Erica l Result [facility] ([place]) 1 [facility] [place] [address] * Sepsis Lactate w/ Reflex (09/25/2024 1:22 AM CDT) Sepsis Lactate 1.9 0.7 - 2.0 mmol/L Blood 09/25/2024 1:22 AM CDT 09/25/2024 1:27 AM CDT Kaylyn Alaniz MD LAB BLOOD ORDERABLES Erica l Result Performing Organization Address [facility] Co de Phone Number [facility] ([place]) 1 [facility] [place] [address] * Troponin T high-sensitivity 2-hour (09/25/2024 1:21 AM CDT) Pathologist [facility] Trop T hs 11 <=22 ng/L Comment: Interpretive Data For further hscTnT resources including the diagnostic algorithm and an aid in interpretation, copy and paste this link: https://nrl.testcatalog.org/show/hsTrop Current Interpretive Data last revised 2020. Trop T hs delta 5 ng/L [facility] ([place]) Trop T hs interp Equivocal [facility] ([place]) Blood 09/25/2024 1:21 AM CDT 09/25/2024 1:27 AM CDT Kaylyn Alaniz MD LAB BLOOD ORDERABLES Erica l Result Performing Organization Address City/[facility]/ZIP Co de Phone Number [facility] ([place]) 1 [facility] [place] [address] * Urinalysis reflex to microscopic and culture Urine (09/25/2024 1:21 AM CDT) Color, ur Yellow Yellow Clarity, ur Clear Clear [facility] ([place]) Specific gravity, ur 1.024 1.003 - 1.030 [...] tendency for uric acid stone formation. Source: [facility] [employer] Current Interpretive Data was last revised on [...] - GENERA L ORDERABLES Final Result [facility] ([place]) 1 [facility] [place] [address] * CT Chest Abdomen Pelvis W Contrast [...] by Kathryn Cobb M.D. SN: Report ID: [id number] Reading Location: [id number] Procedure Note Kathryn Cobb MD - 09/25/2024 [...] Kathryn Cobb M.D. SN: SN Report ID: [id number] Reading Location: [id number] Kaylyn Alaniz MD IMG CT PROCEDURES Final [...] by Kathryn Cobb M.D. SN: Report ID: [id number] Reading Location: [id number] Procedure Note Kathryn Cobb MD - 09/24/2024 [...] by Kathryn Cobb M.D. SN: Report ID: [id number] Reading Location: [id number] us Kaylyn Alaniz MD IMG CT PROCEDURES [...] A Lozano M.D. AT: AT Report ID: [id number] Reading Location: [id number] Procedure Note Miguel A Lozano MD - [...] A Lozano M.D. AT: AT Report ID: [id number] Reading Location: [id number] Kaylyn Alaniz MD IMG XR PROCEDURES Final [...] MD LAB BLOOD ORDERABLES Erica l Result [facility] 1 [facility] [place] [address] * (ABNORMAL) Differential, auto (09/24/2024 10:37 PM [...] us Kaylyn Alaniz MD LAB BLOOD ORDERABLES Eriac rodriguez Result [facility] ([place]) 1 [facility] [place] [address] * Troponin T high-sensitivity series (baseline, 2hr, 4hr, 6hr) (09/24/2024 10:37 PM CDT) Pathologist [facility] Trop T hs <6 <=22 ng/L Comment: Interpretive Data For further hscTnT resources including the diagnostic algorithm and an aid in interpretation, copy and paste this link: https://nrl.testcatalog.org/show/hsTrop Current Interpretive Data last revised 2020. Blood 09/24/2024 10:3 7 PM CDT 09/24/2024 10:40 PM CDT Kaylyn Alaniz MD LAB BLOOD ORDERABLES Erica l Result [facility] ([place]) [address] [place] [address] [employer] [place] [address] * Creatine kinase (CK), total (09/24/2024 10:37 PM CDT) [facility] CK 116 40 - 300 Units/L Blood 09/24/2024 10:3 7 PM CDT 09/24/2024 10:40 PM CDT Kaylyn Alaniz MD LAB BLOOD ORDERABLES Erica l Result Performing Organization Address City/[facility]/ZIP Co de Phone Number [facility] ([place]) [address] [place] [address] [place] [address] * (ABNORMAL) Sepsis Lactate w/ Reflex (09/24/2024 10:37 PM CDT) [facility] Sepsis Lactate 8.4(C) 0.7 - 2.0 mmol/L Comment:Critical result call ed to and read back by juan willett (_) on 09/24/2024 22:50:03 CDT to adelia bird. Blood 09/24/2024 10:3 7 PM CDT 09/24/2024 10:40 PM CDT Kaylyn Alaniz MD LAB BLOOD ORDERABLES Erica michael Result [facility] ([place]) 1 [facility] [place] [address] * (ABNORMAL) Comprehensive metabolic panel (09/24/2024 10:37 [...] ORDERABLES Erica rodriguez Result Performing Organization Address City/[facility]/ZIP Co de Phone Number [facility] ([place]) 1 [facility] [place] [address] * (ABNORMAL) CBC with auto differential (09/24/2024 [...] ORDERABLES Erica l Result Performing Organization Address City/[facility]/ZIP Co de Phone Number [facility] ([place]) 1 [facility] [place] [address] * ECG 12 lead (09/24/2024 10:26 PM CDT) 09/24/2024 10:2 6 PM CDT Narrative [facility] - 09/25/2024 6:46 AM CDT Vent Rate: 121 bpm RR Interval: 492 msec [place] Interval: 141 msec QRS Duration: 104 msec QT Interval: 308 msec QTC Interval: 380 msec P-R-T [place]: 34 - 29 - 31 degrees IMPRESSION: SINUS TACHYCARDIA ABNORMAL RHYTHM ECG Electronically Signed By: Gasper Marsh MD us Kaylyn Alaniz MD ECG ORDERABLES Final Res ult [facility] documented in this encounter Visit Diagnoses Diagnosis [...] intravenous, Once in imaging, contrast, Starting on Nree[place] 09/25/24 at 0048, For 1 dose Contrast [...] 09/24/2024 documented in this encounter Care Teams Zinc Plater Relationship Specialty Start Date End Date Rafa Porter MD [address] [place] [address] PCP - General Internal Medicine 09/24/24 documented as of this encounter
--- OUTSIDE RECORDS SUMMARY | 2024-09-26 09:29 | XMS_ITS | Referral Summary ---
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 Gender Identity Not on file Sexual Orientation [...] Erica l Result [facility] ([place]) 1 [facility] Department [place] [address] * eGFR (09/25/2024 2:18 AM CDT) eGFR [...] Erica l Result [facility] ([place]) 1 [facility] Department [place] [address] * (ABNORMAL) Basic metabolic panel (09/25/2024 2:18 [...] BLOOD ORDERABLES Erica l Result [facility] ([place]) 1 [facility] [place] [address] * Sepsis Lactate w/ Reflex (09/25/2024 1:22 AM CDT) Pathologist [facility] Sepsis Lactate 1.9 0.7 - 2.0 mmol/L Blood 09/25/2024 1:22 AM CDT 09/25/2024 1:27 AM CDT Kaylyn Alaniz MD LAB BLOOD ORDERABLES Erica l Result Performing Organization Address [facility] Co de Phone Number [facility] ([place]) 1 [place] [address] * Troponin T high-sensitivity 2-hour (09/25/2024 1:21 AM CDT) [facility] Trop T hs 11 <=22 ng/L Comment: Interpretive Data For further hscTnT resources including the diagnostic algorithm and an aid in interpretation, copy and paste this link: https://nrl.testcatalog.org/show/hsTrop Current Interpretive Data last revised 2020. Trop T hs delta 5 ng/L [facility] ([place]) Trop T hs interp Equivocal [facility] ([place]) Blood 09/25/2024 1:21 AM CDT 09/25/2024 1:27 AM CDT Kaylyn Alaniz MD LAB BLOOD ORDERABLES Erica l Result Performing Organization Address City/[facility]/ZIP Co de Phone Number [facility] ([place]) 1 [facility] [place] [address] * Urinalysis reflex to microscopic and culture Urine (09/25/2024 1:21 AM CDT) Pathologist [facility] Color, ur Yellow Yellow Clarity, ur Clear Clear [facility] ([place]) Specific gravity, ur 1.024 1.003 - 1.030 [facility] ([place]) pH, urine 6.0 [facility] ([place]) Comment: Interpretive Data U rine pH is affected by diet, medications, systemic acid-base disturbances, and renal tubular function. pH may affect urinary stone formation. For example, urine pH below 6.0 may help reduce the tendency for calcium phosphate stones and pH greater than 6.0 may reduce the tendency for uric acid stone formation. Source: [facility] Current Interpretive Data was last revised [...] ORDERABLES Final Result [facility] ([place]) 1 [facility] Department [place] [address] * CT Chest Abdomen Pelvis W Contrast [...] by Kathryn Cobb M.D. SN: Report ID: [id number] Reading Location: [id number] Procedure Note Kathryn Cobb MD - 09/25/2024 [...] by Kathryn Cobb M.D. SN: Report ID: [id number] Reading Location: [id number] Kaylyn Alaniz MD IMG CT PROCEDURES Final [...] by Kathryn Cobb M.D. SN: Report ID: [id number] Reading Location: [id number] Procedure Note Kathryn Cobb MD - 09/24/2024 [...] by Kathryn Cobb M.D. SN: Report ID: [id number] Reading Location: [id number] Kaylyn Alaniz MD IMG CT PROCEDURES Final [...] A Lozano M.D. AT: AT Report ID: [id number] Reading Location: [id number] Procedure Note Miguel A Lozano MD - [...] A Lozano M.D. AT: AT Report ID: [id number] Reading Location: [id number] Kaylyn Alaniz MD IMG XR PROCEDURES Final R esult * Troponin T high-sensitivity series (baseline, 2hr, 4hr, 6hr) (09/24/2024 10:37 PM CDT) [facility] Trop T hs <6 <=22 ng/L Comment: Interpretive Data For further hscTnT resources including the diagnostic algorithm and an aid in interpretation, copy and paste this link: https://nrl.testcatalog.org/show/hsTrop Current Interpretive Data last revised 2020. Blood 09/24/2024 10:3 7 PM CDT 09/24/2024 10:40 PM CDT Kaylyn Alaniz MD LAB BLOOD ORDERABLES Erica l Result Performing Organization Address City/[facility]/ZIP Co de Phone Number [facility] [place]) 1 [facility] [employer] [place] [address] * (ABNORMAL) Sepsis Lactate w/ Reflex (09/24/2024 10:37 PM CDT) [facility] Sepsis Lactate 8.4(C) 0.7 - 2.0 mmol/L Comment:Critical result call ed to and read back by _camilla willett (_) on 09/24/2024 22:50:03 CDT to adelia bird. Blood 09/24/2024 10:3 7 PM CDT 09/24/2024 10:40 PM CDT Kaylyn Alaniz MD LAB BLOOD ORDERABLES Erica l Result [facility] ([place]) 1 [facility] [place] [address] * eGFR (09/24/2024 10:37 PM CDT) [facility] eGFR >90 >=60 mL/min/1. 73 m2 Comment: [...] BLOOD ORDERABLES Erica rodriguez Result [facility] ([place]) 1 [facility] Department [place] [address] * (ABNORMAL) Differential, auto (09/24/2024 10:37 PM [...] BLOOD ORDERABLES Erica rodriguez Result [facility] ([place]) 1 [facility] Department [place] [address] * (ABNORMAL) CBC with auto differential (09/24/2024 10:37 PM CDT) WBC 18.62(H) 3.80 - 9.90 K/cumm Hgb 15.7 13.0 - 17.5 g/dL [facility] ([place]) Hct 46.6 38.9 - 50.3 % [facility] ([place]) Plt 445(H) 150 - 400 K/cumm [facility] ([place]) MPV 9.2 9.1 - 12.3 fL [facility] ([place] RBC 5.29 4.30 - 5.80 M/cumm [facility] ([place]) MCV 88.1 81.3 - 96.4 fL [facility] ([place]) MCH 29.7 27.1 - 33.3 pg [facility] ([place]) MCHC 33.7 32.3 - 35.7 g/dL [facility] RDW CV 12.5 11.1 - 14.9 % [facility] ([place] RDW SD 40.3 35.7 - 48.1 fL [facility] ([place]) NRBC abs 0.00 0.00 - 0.01 K/cumm [facility] ([place] Blood 09/24/2024 10:3 7 PM CDT 09/24/2024 10:40 PM CDT Kaylyn Alaniz MD LAB BLOOD ORDERABLES Erica l Result Performing Organization Address City/[facility]/ZIP Co de Phone Number [facility] ([place]) 1 [facility] [employer] [place] [address] * Creatine kinase (CK), total (09/24/2024 10:37 PM CDT) Pathologist [facility] CK 116 40 - 300 Units/L Blood 09/24/2024 10:3 7 PM CDT 09/24/2024 10:40 PM CDT Kaylyn Alaniz MD LAB BLOOD ORDERABLES Erica l Result [facility] ([place]) 1 [facility] [place] [address] * (ABNORMAL) Comprehensive metabolic panel (09/24/2024 10:37 PM CDT) Pathologist [facility] Sodium 138 135 - 145 mmol/L Potassium, pl 4.4 3.3 - 4.9 mmol/L [facility] ([place]) Chloride 96(L) 97 - 110 mmol/L [facility] ([place]) CO2 19(L) 22 - [...] Erica rodriguez Result [facility] ([place]) 1 [facility] Department [place] [address] * ECG 12 lead (09/24/2024 10:26 PM CDT) 09/24/2024 10:2 6 PM CDT Narrative [facility] - 09/25/2024 6:46 AM CDT Vent Rate: 121 bpm RR Interval: 492 msec MT Interval: 141 msec QRS Duration: 104 msec QT Interval: 308 msec QTC Interval: 380 msec P-R-T [place]: 34 - 29 - 31 degrees IMPRESSION: SINUS TACHYCARDIA ABNORMAL RHYTHM ECG Electronically Signed By: Gasper Marsh MD us Kaylyn Alaniz MD ECG ORDERABLES Final Res ult [facility] from Last 3 Months Insurance Care Teams Bill Hiker Relationship Specialty Start Date End Date Rafa Porter MD [address] [place] [address] PCP - General Internal Medicine 09/24/24
--- NOTE | 2024-10-16 10:19 | WPDHOLTEREM ---
Holter/Event Monitor Holter/Event Monitor Date of procedure: 09/26/24 Holter/Event Procedure: Event Monitor Indications: Syncope Conclusion: 1. 14 days event monitor on 09/26/24. 2. Underlying rhythm is sinus rhythm. HR range 47-145 bpm; average HR 83 bpm. HR at 47 bpm was on 09/29/24 at 8:58 am. 3. There are rare premature supraventricular complexes and rare supraventricular couplets. No supraventricular tachycardia. 4. There are rare premature ventricular complexes. No ventricular tachycardia. 5. No significant pauses greater than 3 seconds. 6. Patient reports 2 episodes of symptoms of chest pain and tingly tongue which demonstrate sinus rhythm, HR range 75-101 bpm.
== END 2024-09-26 09:21 | disposition home or self-care (01) ==
PROVIDERS: PCP Internal Medicine; Visit Provider Nurse Practitioner Family
DX: R42 Dizziness and giddiness (principal); T67.1XXD Heat syncope, subsequent encounter
CPT/HCPCS: 93246

== ENCOUNTER 2024-09-29 10:57 | Outpatient (CLI) | payer OTHER, SELFPAY ==
--- NOTE | 2024-09-29 | CONSULT_PTH ---
PATIENT: Seb Vásquez LOC: [facility]#:[id number] AGE/SX: 33/M ROOM: RE09/29/[address]: Giselle Bill, YUVAL : 1990 BED: DIS: 09/29/2024 SPEC #: [id number] RECD: 09/29/24 13:30 STATUS: YOLANDE REQ #: [id number] EDDIE: 09/29/24 00:[address]: Fly,Giselle Og DEPT: [facility] Consult RECD BY: Nona Mccoy MLT, ([facility]) ENTERED: 09/29/24 13:30 SP TYPE: Consult OTHR DR: Rafa Porter MD Tissues: A - Peripheral Smear Procedures: Hematology Consult
--- OUTSIDE RECORDS SUMMARY | 2024-09-29 11:04 | XMS_ITS | Referral Summary ---
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 Gender Identity Not on file Sexual Orientation [...] Erica l Result [facility] ([place]) [address] [facility] Department [place] [address] * eGFR (09/25/2024 2:18 AM CDT) eGFR [...] Erica l Result [facility] ([place]) [address] [facility] [place] [address] * (ABNORMAL) Basic metabolic panel (09/25/2024 2:18 [...] BLOOD ORDERABLES Erica l Result [facility] ([place]) 1 [facility] [place] [address] * Sepsis Lactate w/ Reflex (09/25/2024 1:22 AM CDT) Pathologist [facility] Sepsis Lactate 1.9 0.7 - 2.0 mmol/L Blood 09/25/2024 1:22 AM CDT 09/25/2024 1:27 AM CDT Kaylyn Alaniz MD LAB BLOOD ORDERABLES Erica l Result Performing Organization Address [facility] Co de Phone Number [facility] ([place]) 1 [place] [address] * Troponin T high-sensitivity 2-hour (09/25/2024 1:21 AM CDT) [facility] Trop T hs 11 <=22 ng/L Comment: Interpretive Data For further hscTnT resources including the diagnostic algorithm and an aid in interpretation, copy and paste this link: https://nrl.testcatalog.org/show/hsTrop Current Interpretive Data last revised 2020. Trop T hs delta 5 ng/L [facility] ([place]) Trop T hs interp Equivocal [facility] ([place]) Blood 09/25/2024 1:21 AM CDT 09/25/2024 1:27 AM CDT Kaylyn Alaniz MD LAB BLOOD ORDERABLES Erica l Result Performing Organization Address City/[facility]/ZIP Co de Phone Number [facility] ([place]) 1 [facility] [address] [place] [address] * Urinalysis reflex to microscopic and culture Urine (09/25/2024 1:21 AM CDT) Pathologist [facility] Color, ur Yellow Yellow Clarity, ur Clear Clear [facility] ([place]) Specific gravity, ur 1.024 1.003 - 1.030 [facility] ([place]) pH, urine 6.0 [facility] ([place] Comment: Interpretive Data U rine pH is affected by diet, medications, systemic acid-base disturbances, and renal tubular function. pH may affect urinary stone formation. For example, urine pH below 6.0 may help reduce the tendency for calcium phosphate stones and pH greater than 6.0 may reduce the tendency for uric acid stone formation. Source: [facility] Laboratories Current Interpretive Data was last revised [...] ORDERABLES Final Result [facility] ([place]) 1 [facility] Department [place] [address] * CT Chest Abdomen Pelvis W Contrast [...] by Kathryn Cobb M.D. SN: Report ID: [id number] Reading Location: [id number] Procedure Note Kathryn Cobb MD - 09/25/2024 [...] by Kathryn Cobb M.D. SN: Report ID: [id number] Reading Location: [id number] Kaylyn Alaniz MD IMG CT PROCEDURES Final [...] by Kathryn Cobb M.D. SN: Report ID: [id number] Reading Location: [id number] Procedure Note Kathryn Cobb MD - 09/24/2024 [...] by Kathryn Cobb M.D. SN: Report ID: [id number] Reading Location: [id number] Kaylyn Alaniz MD IMG CT PROCEDURES Final [...] A Lozano M.D. AT: AT Report ID: [id number] Reading Location: [id number] Procedure Note Miguel A Lozano MD - [...] A Lozano M.D. AT: AT Report ID: [id number] Reading Location: [id number] Kaylyn Alaniz MD IMG XR PROCEDURES Final R esult * Troponin T high-sensitivity series (baseline, 2hr, 4hr, 6hr) (09/24/2024 10:37 PM CDT) [facility] Trop T hs <6 <=22 ng/L Comment: Interpretive Data For further hscTnT resources including the diagnostic algorithm and an aid in interpretation, copy and paste this link: https://nrl.testcatalog.org/show/hsTrop Current Interpretive Data last revised 2020. Blood 09/24/2024 10:3 7 PM CDT 09/24/2024 10:40 PM CDT Kaylyn Alaniz MD LAB BLOOD ORDERABLES Erica l Result Performing Organization Address City/[facility]/ZIP Co de Phone Number [facility] [place]) 1 [facility] [employer] [address] [place] [address] * (ABNORMAL) Sepsis Lactate w/ Reflex (09/24/2024 10:37 PM CDT) [facility] Sepsis Lactate 8.4(C) 0.7 - 2.0 mmol/L Comment:Critical result call ed to and read back by _camilla willett (_) on 09/24/2024 22:50:03 CDT to adelia bird. Blood 09/24/2024 10:3 7 PM CDT 09/24/2024 10:40 PM CDT Kaylyn Alaniz MD LAB BLOOD ORDERABLES Erica l Result [facility] ([place]) 1 [facility] [place] [address] * eGFR (09/24/2024 10:37 PM CDT) [facility] eGFR >90 >=60 mL/min/1. 73 m2 Comment: [...] BLOOD ORDERABLES Erica rodriguez Result [facility] ([place]) 1 [facility] Department [place] [address] * (ABNORMAL) Differential, auto (09/24/2024 10:37 PM [...] BLOOD ORDERABLES Erica rodriguez Result [facility] ([place]) [address] [facility] Department [place] [address] * (ABNORMAL) CBC with auto differential (09/24/2024 10:37 PM CDT) WBC 18.62(H) 3.80 - 9.90 K/cumm Hgb 15.7 13.0 - 17.5 g/dL [facility] ([place]) Hct 46.6 38.9 - 50.3 % [facility] ([place]) Plt 445(H) 150 - 400 K/cumm [facility] ([place]) MPV 9.2 9.1 - 12.3 fL [facility] ([place] RBC 5.29 4.30 - 5.80 M/cumm [facility] ([place] MCV 88.1 81.3 - 96.4 fL [facility] ([place]) MCH 29.7 27.1 - 33.3 pg [facility] ([place]) MCHC 33.7 32.3 - 35.7 g/dL [facility] RDW CV 12.5 11.1 - 14.9 % [facility] ([place] RDW SD 40.3 35.7 - 48.1 fL [facility] ([place]) NRBC abs 0.00 0.00 - 0.01 K/cumm [facility] ([place] Blood 09/24/2024 10:3 7 PM CDT 09/24/2024 10:40 PM CDT Kaylyn Alaniz MD LAB BLOOD ORDERABLES Erica l Result Performing Organization Address City/[facility]/ZIP Co de Phone Number [facility] ([place]) [address] [facility] [address] [place] [address] * Creatine kinase (CK), total (09/24/2024 10:37 PM CDT) Pathologist [facility] CK 116 40 - 300 Units/L Blood 09/24/2024 10:3 7 PM CDT 09/24/2024 10:40 PM CDT Kaylyn Alaniz MD LAB BLOOD ORDERABLES Erica l Result [facility] ([place]) 1 [facility] of [address] [place] [address] * (ABNORMAL) Comprehensive metabolic panel (09/24/2024 10:37 PM CDT) Pathologist [facility] Sodium 138 135 - 145 mmol/L Potassium, pl 4.4 3.3 - 4.9 mmol/L [facility] ([place]) Chloride 96(L) 97 - 110 mmol/L [facility] ([place]) CO2 19(L) 22 - [...] Erica rodriguez Result [facility] ([place]) [address] [facility] Department [place] [address] * ECG 12 lead (09/24/2024 10:26 PM CDT) 09/24/2024 10:2 6 PM CDT Narrative [facility] - 09/25/2024 6:46 AM CDT Vent Rate: 121 bpm RR Interval: 492 msec [place] Interval: 141 msec QRS Duration: 104 msec QT Interval: 308 msec QTC Interval: 380 msec P-R-T [place]: 34 - 29 - 31 degrees IMPRESSION: SINUS TACHYCARDIA ABNORMAL RHYTHM ECG Electronically Signed By: Gasper Marsh MD us Kaylyn Alaniz MD ECG ORDERABLES Final Res ult [facility] from Last 3 Months Insurance Care Teams Checkout Operator Relationship Specialty Start Date End Date Rafa Porter MD [address] [place] [address] PCP - General Internal Medicine 09/24/24
--- OUTSIDE RECORDS SUMMARY | 2024-09-29 11:04 | XMS_ITS | Clinical Summary ---
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 Gender Identity Not on file Sexual Orientation [...] T hs interp Equivocal [facility] ([place]) Blood 09/25/2024 2:18 AM CDT 09/25/2024 2:22 AM CDT us Kaylyn Alaniz MD LAB BLOOD ORDERABLES Erica l Result [facility] ([place]) 1 [facility] [place] [address] * eGFR (09/25/2024 2:18 AM [...] MD LAB BLOOD ORDERABLES Erica rodriguez Result [facility] ([place]) 1 [facility] [place] [address] * (ABNORMAL) Basic metabolic panel (09/25/2024 2:18 AM CDT) Sodium 138 135 - 145 mmol/L Potassium, pl 3.9 3.3 - 4.9 mmol/L [facility] Chloride 102 97 - 110 mmol/L [facility] ([place]) CO2 24 22 - 32 mmol/L [facility] ([place]) Anion gap 12 2 - 15 mmol/L [facility] ([place]) BUN 9 6 - 25 mg/dL [facility] Creatinine 0.88 0.80 - 1.30 [...] BLOOD ORDERABLES Erica l Result [facility] ([place]) 1 [facility] [employer] [facility] [place] [address] * Sepsis Lactate w/ Reflex (09/25/2024 1:22 AM CDT) Sepsis Lactate 1.9 0.7 - 2.0 mmol/L Blood 09/25/2024 1:22 AM CDT 09/25/2024 1:27 AM CDT Kaylyn Alaniz MD LAB BLOOD ORDERABLES Erica l Result [facility] ([place]) [address] [place] [address] [place] [address] * Troponin T high-sensitivity 2-hour (09/25/2024 1:21 [...] Erica l Result [facility] ([place]) 1 [facility] Department [place] [address] * Urinalysis reflex to microscopic and culture [...] tendency for uric acid stone formation. Source: [facility] Current Interpretive Data was last revised [...] ORDERABLES Final Result [facility] ([place]) 1 [facility] [place] [address] * CT Chest Abdomen Pelvis W Contrast [...] by Kathryn Cobb M.D. SN: Report ID: [id number] Reading Location: [id number] Procedure Note Kathryn Cobb MD - 09/25/2024 [...] by Kathryn Cobb M.D. SN: Report ID: [id number] Reading Location: [place] [address] Kaylyn Alaniz MD IMG CT PROCEDURES Final [...] Kathryn Cobb M.D. SN: SN Report ID: [id number] Reading Location: [place] [address] Procedure Note Kathryn Cobb MD - 09/24/2024 [...] Kathryn Cobb M.D. SN: SN Report ID: [id number] Reading Location: [id number] Kaylyn Alaniz MD IM CT PROCEDURES Final [...] A Lozano M.D. AT: AT Report ID: [id number] Reading Location: [id number] Procedure Note Miguel A Lozano MD - [...] A Lozano M.D. AT: AT Report ID: [id number] Reading Location: [place] [address] Kaylyn Alaniz MD IMG XR PROCEDURES Final [...] BLOOD ORDERABLES Erica l Result [facility] [place] 1 [facility] Department [place] [address] * (ABNORMAL) Sepsis Lactate w/ Reflex (09/24/2024 10:37 PM CDT) Sepsis Lactate 8.4(C) 0.7 - 2.0 mmol/L Comment:Critical result call ed to and read back by juan willett (_) on 09/24/2024 22:50:03 CDT to adelia bird. Blood 09/24/2024 10:3 7 PM CDT 09/24/2024 10:40 PM CDT Kaylyn Alaniz MD LAB BLOOD ORDERABLES Erica l Result Performing Organization Address City/[facility]/ZIP Co de Phone Number [facility] ([place]) 1 [facility] [employer] [facility] [place] [address] * eGFR (09/24/2024 10:37 PM CDT) eGFR [...] BLOOD ORDERABLES Erica l Result [facility] ([place]) 1 [facility] [employer] [facility] [place] [address] * (ABNORMAL) Differential, auto (09/24/2024 10:37 PM [...] Erica l Result [facility] ([place]) 1 [facility] [employer] [facility] [place] [address] * (ABNORMAL) CBC with auto differential (09/24/2024 [...] Erica l Result [facility] ([place]) 1 [facility] [employer] [facility] [facility] [place] [address] * Creatine kinase (CK), total (09/24/2024 10:37 PM CDT) CK 116 40 - 300 Units/L Blood 09/24/2024 10:3 7 PM CDT 09/24/2024 10:40 PM CDT us Kaylyn Alaniz MD LAB BLOOD ORDERABLES Erica rodriguez Result [facility] ([place]) 1 [facility] Department [place] [address] * (ABNORMAL) Comprehensive metabolic panel (09/24/2024 10:37 [...] ORDERABLES Erica l Result Performing Organization Address City/[facility]/ZIP Co de Phone Number [facility] ([place]) 1 [facility] [place] [address] * ECG 12 lead (09/24/2024 10:26 PM CDT) 09/24/2024 10:2 6 PM CDT Narrative [facility] - 09/25/2024 6:46 AM CDT Vent Rate: 121 bpm RR Interval: 492 msec [place] Interval: 141 msec QRS Duration: 104 msec QT Interval: 308 msec QTC Interval: 380 msec P-R-T [place]: 34 - 29 - 31 degrees IMPRESSION: SINUS TACHYCARDIA ABNORMAL RHYTHM ECG Electronically Signed By: Gasper Marsh MD Kaylyn Alaniz MD ECG ORDERABLES Final Res ult Performing Organization Address City/[facility] Co de Phone Number [facility] from Last 3 Months Insurance Care Teams Instructor Private Relationship Specialty Start Date End Date Rafa Porter MD [address] [place] [address] PCP - General Internal Medicine 09/24/24
[2024-09-29 11:10] LABS: Hematocrit 46.2 % (40.0-54.0); Hemoglobin 15.2 g/dL (14.0-18.0); Mean Corpuscular HGB Conc 32.9 g/dL (32-36); Mean Corpuscular Hemoglobin 29.2 pg (27.0-31.0); Mean Corpuscular Volume 88.7 fL (78.0-102.0); Platelet Count Result 367 K/mm3 (150-420); Red Blood Count 5.21 M/mm3 (4.70-6.10); White Blood Count 12.8 K/mm3 (4.8-10.8)
== END 2024-09-29 10:58 | disposition home or self-care (01) ==
LOC: CHSLAB 10:58
PROVIDERS: PCP Internal Medicine; Visit Provider Nurse Practitioner Family
DX: D72.829 Elevated white blood cell count, unspecified (principal)
CPT/HCPCS: 36415; 85027

== ENCOUNTER 2024-10-20 15:26 | Outpatient (CLI) | payer OTHER, SELFPAY ==
--- NOTE | 2024-10-20 | CONSULT_PTH ---
PATIENT: Seb Vásquez LOC: [facility]#:[id number] AGE/SX: 34/M ROOM: RE10/20/[address]: Giselle Bill, YUVAL : 1990 BED: DIS: 10/20/2024 SPEC #: [id number] RECD: 10/21/24 10:26 STATUS: YOLANDE REQ #: [id number] EDDIE: 10/20/24 00:[address]: Fly,Giselle Og DEPT: [facility] Consult RECD BY: Eva Franks MT,([facility]) ENTERED: 10/21/24 10:26 SP TYPE: Consult OTHR DR: Rafa Porter MD Tissues: A - Peripheral Smear Procedures: Hematology Consult
--- OUTSIDE RECORDS SUMMARY | 2024-10-20 15:35 | XMS_ITS | Referral Summary ---
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 Gender Identity Not on file Sexual Orientation [...] Erica l Result [facility] ([place]) 1 [facility] [place] [address] * eGFR (09/25/2024 2:18 AM CDT) eGFR [...] Erica l Result [facility] ([place]) 1 [facility] [place] [address] * (ABNORMAL) Basic metabolic panel (09/25/2024 2:18 [...] BLOOD ORDERABLES Erica l Result [facility] ([place]) 1 [facility] [place] [address] * Sepsis Lactate w/ Reflex (09/25/2024 1:22 AM CDT) Pathologist [facility] Sepsis Lactate 1.9 0.7 - 2.0 mmol/L Blood 09/25/2024 1:22 AM CDT 09/25/2024 1:27 AM CDT Kaylyn Alaniz MD LAB BLOOD ORDERABLES Erica l Result Performing Organization Address [facility] Co de Phone Number [facility] ([place]) 1 [place] [address] * Troponin T high-sensitivity 2-hour (09/25/2024 1:21 AM CDT) [facility] Trop T hs 11 <=22 ng/L Comment: Interpretive Data For further hscTnT resources including the diagnostic algorithm and an aid in interpretation, copy and paste this link: https://nrl.testcatalog.org/show/hsTrop Current Interpretive Data last revised 2020. Trop T hs delta 5 ng/L [facility] ([place]) Trop T hs interp Equivocal [facility] ([place]) Blood 09/25/2024 1:21 AM CDT 09/25/2024 1:27 AM CDT Kaylyn Alaniz MD LAB BLOOD ORDERABLES Erica l Result Performing Organization Address City/[facility]/ZIP Co de Phone Number [facility] ([place]) 1 [facility] [place] [address] * Urinalysis reflex to microscopic and culture Urine (09/25/2024 1:21 AM CDT) Pathologist [facility] Color, ur Yellow Yellow Clarity, ur Clear Clear [facility] A ([place]) Specific gravity, ur 1.024 1.003 - 1.030 [facility] ([place]) pH, urine 6.0 [facility] ([place]) Comment: Interpretive Data U rine pH is affected by diet, medications, systemic acid-base disturbances, and renal tubular function. pH may affect urinary stone formation. For example, urine pH below 6.0 may help reduce the tendency for calcium phosphate stones and pH greater than 6.0 may reduce the tendency for uric acid stone formation. Source: [facility] Current Interpretive Data was last [...] ORDERABLES Final Result [facility] ([place]) 1 [facility] [place] [address] * CT Chest Abdomen Pelvis W Contrast [...] by Kathryn Cobb M.D. SN: Report ID: [id number] Reading Location: [id number] Procedure Note Kathryn Cobb MD - 09/25/2024 [...] by Kathryn Cobb M.D. SN: Report ID: [id number] Reading Location: [id number] Kaylyn Alaniz MD IMG CT PROCEDURES Final [...] by Kathryn Cobb M.D. SN: Report ID: [id number] Reading Location: [id number] Procedure Note Kathryn Cobb MD - 09/24/2024 [...] by Kathryn Cobb M.D. SN: Report ID: [id number] Reading Location: [id number] Kaylyn Alaniz MD IMG CT PROCEDURES Final [...] A Lozano M.D. AT: AT Report ID: [id number] Reading Location: [id number] Procedure Note Miguel A Lozano MD - [...] A Lozano M.D. AT: AT Report ID: [id number] Reading Location: [id number] Kaylyn Alaniz MD IMG XR PROCEDURES Final R esult * Troponin T high-sensitivity series (baseline, 2hr, 4hr, 6hr) (09/24/2024 10:37 PM CDT) [facility] Trop T hs <6 <=22 ng/L Comment: Interpretive Data For further hscTnT resources including the diagnostic algorithm and an aid in interpretation, copy and paste this link: https://nrl.testcatalog.org/show/hsTrop Current Interpretive Data last revised 2020. Blood 09/24/2024 10:3 7 PM CDT 09/24/2024 10:40 PM CDT Kaylyn Alaniz MD LAB BLOOD ORDERABLES Erica l Result Performing Organization Address City/[facility]/ZIP Co de Phone Number [facility] [place]) 1 [facility] [employer] [address] * (ABNORMAL) Sepsis Lactate w/ Reflex (09/24/2024 10:37 PM CDT) [facility] Sepsis Lactate 8.4(C) 0.7 - 2.0 mmol/L Comment:Critical result call ed to and read back by _camilla willett (_) on 09/24/2024 22:50:03 CDT to adelia bird. Blood 09/24/2024 10:3 7 PM CDT 09/24/2024 10:40 PM CDT Kaylyn Alaniz MD LAB BLOOD ORDERABLES Erica l Result [facility] ([place]) 1 [facility] [address] * eGFR (09/24/2024 10:37 PM CDT) [facility] eGFR >90 >=60 mL/min/1. 73 m2 Comment: [...] BLOOD ORDERABLES Erica rodriguez Result [facility] ([place]) 1 [facility] [place] [address] * (ABNORMAL) Differential, auto (09/24/2024 10:37 PM [...] BLOOD ORDERABLES Erica rodriguez Result [facility] ([place]) 1 [facility] [place] [address] * (ABNORMAL) CBC with auto differential (09/24/2024 10:37 PM CDT) WBC 18.62(H) 3.80 - 9.90 K/cumm Hgb 15.7 13.0 - 17.5 g/dL [facility] ([place]) Hct 46.6 38.9 - 50.3 % [facility] ([place]) Plt 445(H) 150 - 400 K/cumm [facility] ([place]) MPV 9.2 9.1 - 12.3 fL [facility] ([place]) RBC 5.29 4.30 - 5.80 M/cumm [facility] ([place]) MCV 88.1 81.3 - 96.4 fL [facility] ([place]) MCH 29.7 27.1 - 33.3 pg [facility] ([place]) MCHC 33.7 32.3 - 35.7 g/dL [facility] ([place]) RDW CV 12.5 11.1 - 14.9 % [facility] ([place]) RDW SD 40.3 35.7 - 48.1 fL [facility] ([place]) NRBC abs 0.00 0.00 - 0.01 K/cumm [facility] ([place]) Blood 09/24/2024 10:3 7 PM CDT 09/24/2024 10:40 PM CDT Kaylyn Alaniz MD LAB BLOOD ORDERABLES Erica l Result Performing Organization Address City/[facility]/ZIP Co de Phone Number [facility] ([place]) 1 [facility] [employer] [address] * Creatine kinase (CK), total (09/24/2024 10:37 PM CDT) Pathologist [facility] CK 116 40 - 300 Units/L Blood 09/24/2024 10:3 7 PM CDT 09/24/2024 10:40 PM CDT Kaylyn Alaniz MD LAB BLOOD ORDERABLES Erica l Result [facility] ([place]) 1 [facility] [place] [address] * (ABNORMAL) Comprehensive metabolic panel (09/24/2024 10:37 PM CDT) Pathologist [facility] Sodium 138 135 - 145 mmol/L Potassium, pl 4.4 3.3 - 4.9 mmol/L [facility] ([place]) Chloride 96(L) 97 - 110 mmol/L [facility] ([place]) CO2 19(L) 22 - 32 [...] Erica rodriguez Result [facility] ([place]) 1 [facility] [place] [address] * ECG 12 lead (09/24/2024 10:26 PM CDT) 09/24/2024 10:2 6 PM CDT Narrative [facility] - 09/25/2024 6:46 AM CDT Vent Rate: 121 bpm RR Interval: 492 msec ID Interval: 141 msec QRS Duration: 104 msec QT Interval: 308 msec QTC Interval: 380 msec P-R-T [place]: 34 - 29 - 31 degrees IMPRESSION: SINUS TACHYCARDIA ABNORMAL RHYTHM ECG Electronically Signed By: Gasper Marsh MD us Kaylyn Alaniz MD ECG ORDERABLES Final Res ult [facility] from Last 3 Months Insurance Care Teams Livestock Speculator Relationship Specialty Start Date End Date Rafa Porter MD [address] [place] [address] PCP - General Internal Medicine 09/24/24
--- OUTSIDE RECORDS SUMMARY | 2024-10-20 15:35 | XMS_ITS | Clinical Summary ---
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 Gender Identity Not on file Sexual Orientation [...] 11/14/2015 11/13/2005, 03/08/2005, 10/23/1995, Additional history exists HPV Vaccines (1 - 3-dose SCDM series) 2016 Influenza Vaccine (#1) 2024 Hepatitis B Screening Completed 03/24/1996 , 11/23/1995, 10/23/1995 Pneumococcal vaccine <65 Aged Out No longer [...] T high-sensitivity 4-hour (09/25/2024 2:18 AM CDT) Pathologist [facility] Trop T hs 11 <=22 ng/L [...] BLOOD ORDERABLES Erica l Result [facility] ([place]) 1 [facility] [place] [address] * eGFR (09/25/2024 2:18 AM CDT) Pathologist [facility] eGFR >90 >=60 mL/min/1. 73 m2 Comment: [...] MD LAB BLOOD ORDERABLES Erica l Result [facility] ([place]) 1 [facility] [place] [address] * (ABNORMAL) Basic metabolic panel (09/25/2024 2:18 AM CDT) Sodium 138 135 - 145 mmol/L Potassium, pl 3.9 3.3 - 4.9 mmol/L [facility] Chloride 102 97 - 110 mmol/L [facility]) CO2 24 22 - 32 mmol/L [facility] ([place]) Anion gap 12 2 - 15 mmol/L [facility] ([place] BUN 9 6 - 25 mg/dL [facility] ([place] Creatinine 0.88 0.80 - 1.30 mg/dL [facility] ([place] Glucose 105 70 - 199 mg/dL [facility] ([place] Comment: Interpretive Data Fasting glucose [...] BLOOD ORDERABLES Erica l Result [facility] ([place]) 1 [facility] [place] [address] * Sepsis Lactate w/ Reflex (09/25/2024 1:22 AM CDT) Sepsis Lactate 1.9 0.7 - 2.0 mmol/L Blood 09/25/2024 1:22 AM CDT 09/25/2024 1:27 AM CDT Kaylyn Alaniz MD LAB BLOOD ORDERABLES Erica l Result [facility] ([place]) [address] [place] [address] [place] [address] * Troponin T high-sensitivity 2-hour (09/25/2024 1:21 [...] Erica l Result [facility] ([place]) 1 [facility] [place] [address] * Urinalysis reflex to microscopic and culture [...] tendency for uric acid stone formation. Source: [facility] Current Interpretive Data was last revised on [...] ORDERABLES Final Result [facility] ([place]) 1 [facility] [place] [address] * CT Chest Abdomen Pelvis W Contrast [...] by Kathryn Cobb M.D. SN: Report ID: [id number] Reading Location: [id number] Procedure Note Kathryn Cobb MD - 09/25/2024 [...] by Kathryn Cobb M.D. SN: Report ID: [id number] Reading Location: [place] [address] Kaylyn Alaniz MD IMG CT PROCEDURES Final [...] Kathryn Cobb M.D. SN: SN Report ID: [id number] Reading Location: [place] [address] Procedure Note Kathrny Cobb MD - 09/24/2024 EXAM DESCRIPTION: CT [...] Kathryn Cobb M.D. SN: SN Report ID: [id number] Reading Location: [id number] Kaylyn Alaniz MD IMG CT PROCEDURES Final [...] A Lozano M.D. AT: AT Report ID: [id number] Reading Location: [id number] Procedure Note Miguel A Lozano MD - [...] A Lozano M.D. AT: AT Report ID: [id number] Reading Location: [id number] Kaylyn Alaniz MD IMG XR PROCEDURES Final [...] BLOOD ORDERABLES Erica l Result [facility] [place]) 8 [facility] [place] [address] * (ABNORMAL) Sepsis Lactate w/ Reflex (09/24/2024 10:37 PM CDT) Sepsis Lactate 8.4(C) 0.7 - 2.0 mmol/L Comment:Critical result call ed to and read back by juan willett (_) on 09/24/2024 22:50:03 CDT to adelia bird. Blood 09/24/2024 10:3 7 PM CDT 09/24/2024 10:40 PM CDT Kaylyn Alaniz MD LAB BLOOD ORDERABLES Erica l Result Performing Organization Address City/[facility]/ZIP Co de Phone Number [facility] ([place]) 1 [facility] [place] [address] * eGFR (09/24/2024 10:37 PM CDT) eGFR [...] BLOOD ORDERABLES Erica l Result [facility] ([place]) 1 [facility] [place] [address] * (ABNORMAL) Differential, auto (09/24/2024 10:37 PM [...] Erica l Result [facility] ([place]) 1 [facility] [place] [address] * (ABNORMAL) CBC with auto differential (09/24/2024 [...] Erica l Result [facility] ([place]) 1 [facility] [place] [address] * Creatine kinase (CK), total (09/24/2024 10:37 PM CDT) CK 116 40 - 300 Units/L Blood 09/24/2024 10:3 7 PM CDT 09/24/2024 10:40 PM CDT us Kaylyn Alaniz MD LAB BLOOD ORDERABLES Erica rodriguez Result [facility] ([place]) 1 [facility] [place] [address] * (ABNORMAL) Comprehensive metabolic panel (09/24/2024 10:37 [...] BLOOD ORDERABLES Erica l Result [facility] ([place]) 1 [facility] [place] [address] * ECG 12 lead (09/24/2024 10:26 PM CDT) 09/24/2024 10:2 6 PM CDT Narrative [facility] - 09/25/2024 6:46 AM CDT Vent Rate: 121 bpm RR Interval: 492 msec [place] Interval: 141 msec QRS Duration: 104 msec QT Interval: 308 msec QTC Interval: 380 msec P-R-T [place]: 34 - 29 - 31 degrees IMPRESSION: SINUS TACHYCARDIA ABNORMAL RHYTHM ECG Electronically Signed By: Gasper Marsh MD Kaylyn Alaniz MD ECG ORDERABLES Final Res ult Performing Organization Address City/[facility] Co de Phone Number [facility] from Last 3 Months Insurance Care Teams Director Of Human Resources Relationship Specialty Start Date End Date Rafa Porter MD [address] [place] [address] PCP - General Internal Medicine 09/24/24
[2024-10-20 16:13] LABS: Hematocrit 46.7 % (40.0-54.0); Hemoglobin 15.5 g/dL (14.0-18.0); Immature Granulocyte Percent A 0.4 % (0.0-0.0); Lymphocytes Absolute Auto 1.78 K/mm3 (1.10-4.50); Mean Corpuscular HGB Conc 33.2 g/dL (32-36); Mean Corpuscular Hemoglobin 29.2 pg (27.0-31.0); Mean Corpuscular Volume 88.1 fL (78.0-102.0); Nucleated Red Blood Cells Absolute Auto 0.00 K/mm3 (0.00-0.00); Nucleated Red Blood Cells Perc 0.0 % (0-0.0); Platelet Count Result 371 K/mm3 (150-420); Red Blood Count 5.30 M/mm3 (4.70-6.10); White Blood Count 12.9 K/mm3 (4.8-10.8)
== END 2024-10-20 15:27 | disposition home or self-care (01) ==
LOC: CHSLAB 15:30
PROVIDERS: PCP Internal Medicine; Visit Provider Nurse Practitioner Family
DX: D72.820 Lymphocytosis (symptomatic) (principal)
CPT/HCPCS: 36415; 85025

== ENCOUNTER 2024-11-05 09:20 | Outpatient (CLI) | payer OTHER, SELFPAY ==
--- OUTSIDE RECORDS SUMMARY | 2024-11-05 09:35 | XMS_ITS | Clinical Summary ---
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 73 m2 Comment: [...] MD LAB BLOOD ORDERABLES Erica l Result [facility] ([place]) 1 [facility] Department [place] [address] * (ABNORMAL) Basic metabolic panel (09/25/2024 2:18 AM CDT) Sodium 138 135 - 145 mmol/L Potassium, pl 3.9 3.3 - 4.9 mmol/L [facility] Chloride 102 97 - 110 mmol/L [facility]) CO2 24 22 - 32 mmol/L [facility] ([place]) Anion gap 12 2 - 15 mmol/L [facility]) BUN 9 6 - 25 mg/dL [facility] ([place]) Creatinine 0.88 0.80 - 1.30 mg/dL [facility] ([place]) Glucose 105 70 - 199 mg/dL [facility] ([place]) Comment: Interpretive Data Fasting glucose [...] BLOOD ORDERABLES Erica l Result [facility] ([place]) 1 [facility] [place] [address] * Sepsis Lactate w/ Reflex (09/25/2024 1:22 AM CDT) Sepsis Lactate 1.9 0.7 - 2.0 mmol/L Blood 09/25/2024 1:22 AM CDT 09/25/2024 1:27 AM CDT Kaylyn Alaniz MD LAB BLOOD ORDERABLES Erica l Result [facility] ([place]) [address] [place] [address] [employer] [place] [address] * Troponin T high-sensitivity 2-hour (09/25/2024 1:21 [...] Erica l Result [facility] ([place]) 1 [facility] [employer] [place] [address] * Urinalysis reflex to microscopic and culture [...] tendency for uric acid stone formation. Source: [facility] Current Interpretive Data was last revised on [...] ORDERABLES Final Result [facility] ([place]) 1 [facility] Department [place] [address] * CT Chest Abdomen Pelvis W Contrast [...] by Kathryn Cobb M.D. SN: Report ID: [id number] Reading Location: [id number] Procedure Note Kathryn Cobb MD - 09/25/2024 [...] by Kathryn Cobb M.D. SN: Report ID: [id number] Reading Location: [place] [address] Kaylyn Alaniz MD IMG CT PROCEDURES Final [...] Kathryn Cobb M.D. SN: SN Report ID: [id number] Reading Location: [place] [address] Procedure Note Kathryn Cobb MD - 09/24/2024 [...] Kathryn Cobb M.D. SN: SN Report ID: [id number] Reading Location: [id number] Kaylyn Alaniz MD IMG CT PROCEDURES Final [...] A Lozano M.D. AT: AT Report ID: [id number] Reading Location: [id number] Procedure Note Miguel A Lozano MD - [...] A Lozano M.D. AT: AT Report ID: [id number] Reading Location: [id number] Kaylyn Alaniz MD IMG XR PROCEDURES Final [...] BLOOD ORDERABLES Erica l Result [facility] [facility] Department [place] [address] * (ABNORMAL) Sepsis Lactate w/ Reflex (09/24/2024 10:37 PM CDT) Sepsis Lactate 8.4(C) 0.7 - 2.0 mmol/L Comment:Critical result call ed to and read back by juan willett (_) on 09/24/2024 22:50:03 CDT to adelia bird. Blood 09/24/2024 10:3 7 PM CDT 09/24/2024 10:40 PM CDT Kaylyn Alaniz MD LAB BLOOD ORDERABLES Erica l Result Performing Organization Address City/[facility]/ZIP Co de Phone Number [facility] ([place]) 1 [facility] [employer] [place] [address] * eGFR (09/24/2024 10:37 PM CDT) eGFR [...] BLOOD ORDERABLES Erica l Result [facility] ([place]) 1 [facility] [employer] [place] [place] [address] * (ABNORMAL) Differential, auto (09/24/2024 10:37 PM [...] Erica l Result [facility] ([place]) 1 [facility] [place] [place] [address] * (ABNORMAL) CBC with auto differential (09/24/2024 [...] Erica l Result [facility] ([place]) 1 [facility] [place] [employer] [place] [address] * Creatine kinase (CK), total (09/24/2024 10:37 PM CDT) CK 116 40 - 300 Units/L Blood 09/24/2024 10:3 7 PM CDT 09/24/2024 10:40 PM CDT us Kaylyn Alaniz MD LAB BLOOD ORDERABLES Erica rodriguez Result [facility] ([place]) 1 [facility] Department [place] [address] * (ABNORMAL) Comprehensive metabolic panel (09/24/2024 10:37 [...] BLOOD ORDERABLES Erica l Result [facility] ([place]) 1 [facility] Department [place] [address] * ECG 12 lead (09/24/2024 10:26 PM CDT) 09/24/2024 10:2 6 PM CDT Narrative [facility] - 09/25/2024 6:46 AM CDT Vent Rate: 121 bpm RR Interval: 492 msec ME Interval: 141 msec QRS Duration: 104 msec QT Interval: 308 msec QTC Interval: 380 msec P-R-T [place]: 34 - 29 - 31 degrees IMPRESSION: SINUS TACHYCARDIA ABNORMAL RHYTHM ECG Electronically Signed By: Gasper Marsh MD Kaylyn Alaniz MD ECG ORDERABLES Final Res ult Performing Organization Address City/[facility] Co de Phone Number [facility] from Last 3 Months Insurance Care Teams Production Operations Engineer Relationship Specialty Start Date End Date Rafa Porter MD [address] [place] [address] PCP - General Internal Medicine 09/24/24
[2024-11-05 09:43] LABS: Hematocrit 44.8 % (40.0-54.0); Hemoglobin 14.5 g/dL (14.0-18.0); Mean Corpuscular HGB Conc 32.4 g/dL (32-36); Mean Corpuscular Hemoglobin 29.6 pg (27.0-31.0); Mean Corpuscular Volume 91.4 fL (78.0-102.0); Platelet Count Result 326 K/mm3 (150-420); Red Blood Count 4.90 M/mm3 (4.70-6.10); White Blood Count 10.8 K/mm3 (4.8-10.8)
== END 2024-11-05 09:21 | disposition home or self-care (01) ==
PROVIDERS: PCP Internal Medicine; Visit Provider Nurse Practitioner Family
DX: D72.829 Elevated white blood cell count, unspecified (principal)
CPT/HCPCS: 36415; 85027; 88184; 88185

== ENCOUNTER 2024-12-09 09:21 | Outpatient (CLI) | payer OTHER, SELFPAY ==
--- NOTE | 2024-12-09 09:25 | ECHO_ITS ---
Patient Info Name: Seb Vásquez Age: 34 years : 1990 Gender: Male Ht: 67 in Wt: 300 lbs BSA: 2.61 m2 HR: 79 bpm BP: 152 / 101 mmHg Technical Quality: Good Exam Date: 12/09/2024 9:28 AM Patient Status: O Admit Date: 12/09/2024 Exam Type: CA echo doppler color flow Complete two-dimensional, color flow and Doppler transthoracic echocardiogram is performed. Systems Support Officer: Heidy Segal Attending Provider: Rafa Porter MD Summary 1. Complete two-dimensional, color flow and Doppler transthoracic echocardiogram is performed. 2. Left ventricular chamber dimension is normal. 3. Left ventricular systolic function is normal, estimated at 65-70. 4. The left ventricular diastolic function is normal. 5. E/e' 6 is not elevated. Left Ventricle E/e' 6 is not elevated. Left ventricular chamber dimension is normal. Left ventricular systolic function is normal, estimated at 65-70. The left ventricular diastolic function is normal. Right Ventricle Right ventricular chamber dimension is normal. Right ventricular systolic function is normal and with normal TAPSE 2.3 cm. Left Atria Left atrial chamber dimension is normal. Right Atria Right atrial chamber dimension is normal. Aortic Valve The aortic valve is trileaflet. There is no aortic valve stenosis. There is no aortic valve regurgitation. Pulmonic Valve There is no pulmonic regurgitation. Mitral Valve There is no mitral valve stenosis. There is no mitral valve regurgitation. Tricuspid Valve There is no tricuspid valve regurgitation. Pericardium/Pleural There is no pericardial effusion. Inferior Vena Cava Normal inferior vena cava with >50% collapse upon inspiration consistent with normal right atrial pressure, 5 mmHg. Aorta The aortic root size at the sinus of Valsalva is normal. Left Ventricular Outflow Tract Name Value Normal LVOT 2D LVOT Diameter 2.0 cm LVOT Doppler LVOT Peak Velocity 124 cm/s LVOT Peak Gradient 6 mmHg LVOT Mean Gradient 4 mmHg LVOT VTI 28 cm LVOT VTI/AV VTI Ratio 0.9 LVOT Stroke Volume 87 ml LVOT CO 6.9 l/min LVOT CI 2.7 l/min/m2 Pulmonic Valve Name Value Normal RVOT Doppler RVOT Peak Velocity 87 cm/s RVOT Peak Gradient 3 mmHg PV Doppler PV Peak Velocity 147 cm/s PV Peak Gradient 9 mmHg Mitral Valve Name Value Normal MV Diastolic Function MV E Peak Velocity 88 cm/s MV A Peak Velocity 58 cm/s MV E/A 1.5 MV Decel Time (PW) 206 ms MV Annular TDI MV E/e' (Septal) 7.3 MV E/e' (Lateral) 5.3 MV E/e' (Average) 6.3 Tricuspid Valve Name Value Normal Estimated PAP/RSVP RA Pressure 5 mmHg <=5 Aortic Valve Name Value Normal AV Doppler AV Peak Velocity 140 cm/s AV Peak Gradient 8 mmHg AV Mean Gradient 5 mmHg AV VTI 31 cm AV Area (Cont Eq VTI) 2.8 cm2 >=3.0 AV Area (Cont Eq Epifanio) 2.8 cm2 AV DI (Epifanio) 0.89 AV Regurgitation 2D LVOT Area 3.1 cm2 Ventricles Name Value Normal LV Dimensions 2D/MM IVS Diastolic Thickness (2D) 0.9 cm 0.6-1.0 LVID Diastole (2D) 4.1 cm 4.2-5.8 LVIW Diastolic Thickness (2D) 1.3 cm 0.6-1.0 LVID Systole (2D) 2.6 cm 2.5-4.0 LVOT Diameter 2.0 cm LV Mass (2D Cubed) 153.65 g 88.00-224.00 LV Mass Index (2D Cubed) 59 g/m2 49-115 Relative Wall Thickness (2D) 0.64 <=0.42 LV Fractional Shortening/Ejection Fraction 2D/MM LV Fractional Shortening (2D) 38 % 25-43 LV EF (2D Teichholz) 69 % LV Diastolic Volume (4C MOD) 128 ml LV EF (4C MOD) 70 % LV Diastolic Volume (2C MOD) 127 ml LV EF (2C MOD) 60 % LV Diastolic Volume (BP MOD) 128 ml 62-150 LV Diastolic Volume Index (BP MOD) 49 ml/m2 34-74 LV Systolic Volume (BP MOD) 45 ml 21-61 LV Systolic Volume Index (BP MOD) 17 ml/m2 11-31 LV EF (BP MOD) 65 % 52-72 LV Diastolic Length (4C) 9.6 cm LV Systolic Length (4C) 7.1 cm LV Stroke Volume (4C MOD) 89 ml Atria Name Value Normal LA Dimensions LA Volume (4C A-L) 40 ml LA Volume (BP A-L) 55 ml RA Dimensions RA Systolic Major [place] Length (4C) 5.3 cm 2.1-2.7 RA Area (4C) 19.0 cm2 <=18.0 Report Signatures
--- OUTSIDE RECORDS SUMMARY | 2024-12-09 10:01 | XMS_ITS | Clinical Summary ---
Author Organization [facility] 163 [facility] lto Address [address] [place] [address] Care Team Providers Care Care Advocate Name Role Phone Rafa Porter MD Primary Care Provider [phone] Allergies No known active allergies Encounters Date Type Department Care Team Description 09/24/2024 10:22 PM CDT - 09/25/2024 3:08 AM CDT Emergency [facility] Emergency Department 1 [place] [address] Kaylyn Alaniz MD Syncope and collapse (Primary [...] on file 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 73 m2 Comment: [...] MD LAB BLOOD ORDERABLES Erica l Result [facility] ([place]) 1 [facility] Department [place] [address] * (ABNORMAL) Basic metabolic panel (09/25/2024 2:18 [...] BLOOD ORDERABLES Erica l Result [facility] ([place]) 1 [facility] [place] [address] * Sepsis Lactate w/ Reflex (09/25/2024 1:22 AM CDT) Sepsis Lactate 1.9 0.7 - 2.0 mmol/L Blood 09/25/2024 1:22 AM CDT 09/25/2024 1:27 AM CDT Kaylyn Alaniz MD LAB BLOOD ORDERABLES Erica l Result [facility] ([place]) [address] [place] [address] [place] [address] * Troponin T high-sensitivity 2-hour (09/25/2024 1:21 [...] Erica l Result [facility] ([place]) 1 [facility] [employer] [place] [address] * Urinalysis reflex to microscopic and culture [...] tendency for uric acid stone formation. Source: [facility] Current Interpretive Data was last revised on [...] ORDERABLES Final Result [facility] ([place]) 1 [facility] Department [place] [address] * CT Chest Abdomen Pelvis W Contrast [...] by Kathryn Cobb M.D. SN: Report ID: [id number] Reading Location: [id number] Procedure Note Kathryn Cobb MD - 09/25/2024 [...] by Kathryn Cobb M.D. SN: Report ID: [id number] Reading Location: [place] [address] Kaylyn Alaniz MD IMG CT PROCEDURES Final [...] Kathryn Cobb M.D. SN: SN Report ID: [id number] Reading Location: [place] [address] Procedure Note Kathryn Cobb MD - 09/24/2024 [...] Kathryn Cobb M.D. SN: SN Report ID: [id number] Reading Location: [id number] Kaylyn Alaniz MD IMG CT PROCEDURES Final [...] A Lozano M.D. AT: AT Report ID: [id number] Reading Location: [id number] Procedure Note Miguel A Lozano MD - [...] A Lozano M.D. AT: AT Report ID: [id number] Reading Location: [id number] Kaylyn Alaniz MD IMG XR PROCEDURES Final [...] BLOOD ORDERABLES Erica l Result [facility] [place]) 0 [facility] Department [place] [address] * (ABNORMAL) Sepsis Lactate w/ Reflex (09/24/2024 10:37 PM CDT) Sepsis Lactate 8.4(C) 0.7 - 2.0 mmol/L Comment:Critical result call ed to and read back by juan willett (_) on 09/24/2024 22:50:03 CDT to adelia bird. Blood 09/24/2024 10:3 7 PM CDT 09/24/2024 10:40 PM CDT Kaylyn Alaniz MD LAB BLOOD ORDERABLES Erica l Result Performing Organization Address City/[facility]/ZIP Co de Phone Number [facility] ([place]) 1 [facility] [employer] [place] [address] * eGFR (09/24/2024 10:37 PM CDT) eGFR [...] BLOOD ORDERABLES Erica l Result [facility] ([place]) 1 [facility] [employer] [place] [address] * (ABNORMAL) Differential, auto (09/24/2024 10:37 PM [...] Erica l Result [facility] ([place]) 1 [facility] [place] [address] * (ABNORMAL) CBC with auto differential (09/24/2024 [...] Erica l Result [facility] ([place]) 1 [facility] [place] [address] * Creatine kinase (CK), total (09/24/2024 10:37 PM CDT) CK 116 40 - 300 Units/L Blood 09/24/2024 10:3 7 PM CDT 09/24/2024 10:40 PM CDT us Kaylyn Alaniz MD LAB BLOOD ORDERABLES Erica rodriguez Result [facility] ([place]) 1 [facility] Department [place] [address] * (ABNORMAL) Comprehensive metabolic panel (09/24/2024 10:37 [...] BLOOD ORDERABLES Erica l Result [facility] ([place]) 1 [facility] Department [place] [address] * ECG 12 lead (09/24/2024 10:26 PM CDT) 09/24/2024 10:2 6 PM CDT Narrative [facility] - 09/25/2024 6:46 AM CDT Vent Rate: 121 bpm RR Interval: 492 msec HI Interval: 141 msec QRS Duration: 104 msec QT Interval: 308 msec QTC Interval: 380 msec P-R-T [place]: 34 - 29 - 31 degrees IMPRESSION: SINUS TACHYCARDIA ABNORMAL RHYTHM ECG Electronically Signed By: Gasper Marsh MD Kaylyn Alaniz MD ECG ORDERABLES Final Res ult Performing Organization Address City/[facility] Co de Phone Number [facility] from Last 3 Months Insurance Care Teams Care Advocate Relationship Specialty Start Date End Date Rafa Porter MD [address] [place] [address] PCP - General Internal Medicine 09/24/24
== END 2024-12-09 09:22 | disposition home or self-care (01) ==
PROVIDERS: PCP Internal Medicine; Visit Provider Internal Medicine
DX: R55 Syncope and collapse (principal); R51.9 Headache, unspecified
CPT/HCPCS: 93306

== ENCOUNTER 2024-12-13 09:25 | Outpatient (CLI) | payer OTHER, SELFPAY ==
--- NOTE | ~2024-12-13 | MR_ITS ---
EXAMINATION: MR brain/brain stem wo con DATE: 12/13/2024 10:47 INDICATION: Near syncope. TECHNIQUE: Magnetic resonance imaging (MRI) of the brain and brainstem was performed without intravenous contrast. COMPARISON: None. FINDINGS: There are 3 foci of increased T2-weighted signal intensity in the cerebral white matter, which is normal for the patient's age. There is no intracranial hemorrhage, acute infarction, or abnormal intracranial mass lesion. The ventricles are normal in size. The mastoid air cells are normal. There is mild mucosal thickening left maxillary sinus. The orbits are normal. IMPRESSION: 1. Normal brain. Reviewed, dictated and finalized at location E. IMPRESSION: 1. Normal brain.
--- OUTSIDE RECORDS SUMMARY | 2024-12-13 09:28 | XMS_ITS | Clinical Summary ---
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 73 m2 Comment: [...] MD LAB BLOOD ORDERABLES Erica l Result [facility] ([place]) 1 [facility] [place] [address] * (ABNORMAL) Basic metabolic panel (09/25/2024 2:18 AM CDT) Sodium 138 135 - 145 mmol/L Potassium, pl 3.9 3.3 - 4.9 mmol/L [facility] ([place]) Chloride 102 97 - 110 mmol/L [facility]) CO2 24 22 - 32 mmol/L [facility] ([place]) Anion gap 12 2 - 15 mmol/L [facility] ([place]) BUN 9 6 - 25 mg/dL [facility] ([place]) Creatinine 0.88 0.80 - 1.30 mg/dL [facility] ([place]) Glucose 105 70 - 199 mg/dL [facility] ([place]) Comment: Interpretive Data Fasting glucose [...] BLOOD ORDERABLES Erica l Result [facility] ([place]) 1 [facility] [place] [address] * Sepsis Lactate w/ Reflex (09/25/2024 1:22 AM CDT) Sepsis Lactate 1.9 0.7 - 2.0 mmol/L Blood 09/25/2024 1:22 AM CDT 09/25/2024 1:27 AM CDT Kaylyn Alaniz MD LAB BLOOD ORDERABLES Erica l Result [facility] ([place]) [address] [place] [address] [place] [address] * Troponin T high-sensitivity 2-hour (09/25/2024 1:21 [...] Erica l Result [facility] ([place]) 1 [facility] [employer] [place] [address] * Urinalysis reflex to microscopic and culture [...] stone formation. Source: [facility] Current Interpretive Data was [...] ORDERABLES Final Result [facility] ([place]) 1 [facility] [place] [address] * CT Chest Abdomen Pelvis W Contrast [...] by Kathryn Cobb M.D. SN: Report ID: [id number] Reading Location: [id number] Procedure Note Kathryn Cobb MD - 09/25/2024 [...] by Kathryn Cobb M.D. SN: Report ID: [id number] Reading Location: [place] [address] Kaylyn Alaniz MD IMG CT PROCEDURES Final [...] Kathryn Cobb M.D. SN: SN Report ID: [id number] Reading Location: [place] [address] Procedure Note Kathryn Cobb MD - 09/24/2024 [...] Kathryn Cobb M.D. SN: SN Report ID: [id number] Reading Location: [id number] Kaylyn Alaniz MD IMG CT PROCEDURES Final [...] A Lozano M.D. AT: AT Report ID: [id number] Reading Location: [id number] Procedure Note Miguel A Lozano MD - [...] A Lozano M.D. AT: AT Report ID: [id number] Reading Location: [id number] Kaylyn Alnaiz MD IMG XR PROCEDURES Final R esult [...] BLOOD ORDERABLES Erica l Result [facility] [place]) 5 [facility] [place] [address] * (ABNORMAL) Sepsis Lactate w/ Reflex (09/24/2024 10:37 PM CDT) Sepsis Lactate 8.4(C) 0.7 - 2.0 mmol/L Comment:Critical result call ed to and read back by juan willett (_) on 09/24/2024 22:50:03 CDT to adelia bird. Blood 09/24/2024 10:3 7 PM CDT 09/24/2024 10:40 PM CDT Kaylyn Alaniz MD LAB BLOOD ORDERABLES Erica l Result Performing Organization Address City/[facility]/ZIP Co de Phone Number [facility] ([place]) 1 [facility] [employer] [place] [address] * eGFR (09/24/2024 10:37 PM CDT) eGFR [...] BLOOD ORDERABLES Erica l Result [facility] ([place]) 1 [facility] [place] [address] * (ABNORMAL) Differential, auto (09/24/2024 10:37 PM [...] Erica l Result [facility] ([place]) 1 [facility] [place] [address] * (ABNORMAL) CBC with auto differential (09/24/2024 [...] Erica l Result [facility] ([place]) 1 [facility] [place] [address] * Creatine kinase (CK), total (09/24/2024 10:37 PM CDT) CK 116 40 - 300 Units/L Blood 09/24/2024 10:3 7 PM CDT 09/24/2024 10:40 PM CDT us Kaylyn Alaniz MD LAB BLOOD ORDERABLES Erica rodriguez Result [facility] ([place]) 1 [facility] [place] [address] * (ABNORMAL) Comprehensive metabolic panel (09/24/2024 10:37 [...] 0.5 0.1 - 1.2 mg/dL [facility] ([place]) Protein, pl 7.5 6.5 - 8.5 g/dL [...] BLOOD ORDERABLES Erica l Result [facility] ([place]) 1 [facility] [place] [address] * ECG 12 lead (09/24/2024 10:26 PM CDT) 09/24/2024 10:2 6 PM CDT Narrative [facility] - 09/25/2024 6:46 AM CDT Vent Rate: 121 bpm RR Interval: 492 msec FL Interval: 141 msec QRS Duration: 104 msec QT Interval: 308 msec QTC Interval: 380 msec P-R-T [place]: 34 - 29 - 31 degrees IMPRESSION: SINUS TACHYCARDIA ABNORMAL RHYTHM ECG Electronically Signed By: Gasper Marsh MD Kaylyn Alaniz MD ECG ORDERABLES Final Res ult Performing Organization Address City/[facility] Co de Phone Number [facility] from Last 3 Months Insurance Care Teams Apartment Maintenance Relationship Specialty Start Date End Date Rafa Porter MD [address] [place] [address] PCP - General Internal Medicine 09/24/24
== END 2024-12-13 09:26 | disposition home or self-care (01) ==
PROVIDERS: PCP Internal Medicine; Visit Provider Internal Medicine
DX: R55 Syncope and collapse (principal); R51.9 Headache, unspecified
CPT/HCPCS: 70551

== ENCOUNTER 2024-12-24 15:34 | Emergency (ER) | payer OTHER, SELFPAY ==
--- NOTE | ~2024-12-24 | XR_ITS ---
EXAMINATION: [id number]_[id number], 12/24/2024 16:08 CDT HISTORY: pain, L. lateral ribs 4-6, no injury, no surgery, pain x 2 d COMPARISON: No comparisons available. Findings: No acute fracture or malalignment. No significant degenerative changes. Soft tissues unremarkable. Impression: No acute fracture or malalignment. Reviewed, dictated and finalized at location P. Impression: No acute fracture or malalignment.
[2024-12-24 15:44] VITALS: BP 119/88; PULSE 82; RESP 16; TEMP 36.5; O2SAT 98
--- NOTE | 2024-12-24 15:51 | ED.GENADULT ---
HPI - General Adult General Chief complaint: Back Pain/Injury Stated complaint: L side pain Source: patient Mode of arrival: ambulatory Limitations: no limitations History of Present Illness HPI narrative: Pt is a 34 y/o male presenting with c/o atraumatic L. lateral rib pain. Pain began after stretching shortly after getting out of bed a few days ago. Aggravating factors include movement, palpation, sneezing. Alleviating factors include rest. Denies CP, lower extremity edema, hemoptysis. 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 No additional complaints Related Data Home Medications ?Medication ?Instructions ?Recorded ?Confirmed ?Last Taken ?Type propranolol 60 mg capsule,24 mg PO 12/24/24 Unknown History hr,extended release Allergies Allergy/AdvReac Type Severity Reaction Status Date / Time No Known Allergies Allergy Verified 03/25/24 17:44 Review of Systems Review of Systems: CONSTITUTIONAL: Denies body aches, fever, chills, or sweats. EYES: Denies visual changes, redness, or discharge. ENT: Denies rhinorrhea, congestion, sore throat, or otalgia. CARDIOVASCULAR: Denies chest pain, palpitations, or edema. RESPIRATORY: Denies cough or dyspnea. GASTROINTESTINAL: Denies abdominal pain, nausea, vomiting, or diarrhea. GENITOURINARY: Denies dysuria or hematuria. SKIN: Denies rash, itching, or wounds. MUSCULOSKELETAL:reports left lateral rib pain Denies back pain, joint pain, or myalgia. NEUROLOGIC: Denies headache, numbness, tingling, or weakness. PSYCH: Denies depression or anxiety. All systems reviewed & are unremarkable except as noted in HPI and below [facility] Past Medical History Medical History Chronic headaches Obesity Body mass index [BMI] 45.0-49.9, adult (04/05/16) Surgical History Surgical History Hx of cholecystectomy Family History Family History Father Family history of diabetes mellitus in first degree relative Hypertension Family history of elevated blood lipids Social History Social History Smoking status: Never smoker Alcohol intake: current Exam Narrative: GENERAL: Well-appearing, well-nourished, and in no acute distress. morbidly obese HEAD: Normocephalic, atraumatic. EYES: EOMI. No redness or drainage. Conjunctivae normal. ENT: Mucous membranes pink and moist. NECK: Normal AROM. Supple. CHEST: No respiratory distress. Clear to auscultation. No crepitus. Mild TTP along the lateral aspect of the L. ribs 4-6. NO ecchymosis. HEART: Regular rate and rhythm. No murmur appreciated. Normal peripheral pulses. EXTREMITIES: Normal range of motion. No edema. SKIN: Warm, dry, no rash. Capillary refill normal. Normal skin turgor. NEURO: No focal deficits. Alert and oriented x3. Gait steady. PSYCH: Normal affect. No signs of depression or anxiety. Course Course Level of Care: Express Care Visit Vital Signs Vital signs: Vital Signs Temperature 97.7 F 12/24/24 15:44 Pulse Rate 82 12/24/24 15:44 Respiratory Rate 16 12/24/24 15:44 Blood Pressure 119/88 12/24/24 15:44 Pulse Oximetry 98 12/24/24 15:44 Temperature 97.7 F 12/24/24 15:44 Pulse Rate 82 12/24/24 15:44 Respiratory Rate 16 12/24/24 15:44 Blood Pressure 119/88 12/24/24 15:44 Pulse Oximetry 98 12/24/24 15:44 Medical Decision Making Vital Signs Vital Signs: Vital Signs Temperature 97.7 F 12/24/24 15:44 Pulse Rate 82 12/24/24 15:44 Respiratory Rate 16 12/24/24 15:44 Blood Pressure 119/88 12/24/24 15:44 Pulse Oximetry 98 12/24/24 15:44 Temperature 97.7 F 12/24/24 15:44 Pulse Rate 82 12/24/24 15:44 Respiratory Rate 16 12/24/24 15:44 Blood Pressure 119/88 12/24/24 15:44 Pulse Oximetry 98 12/24/24 15:44 Imaging Data Attestation: I personally reviewed and interpreted this imaging study as follows: My impression: NAD Discharge Plan Discharge Clinical Impression: Rib pain on left side Patient Disposition: Home Condition: Stable Instructions: Musculoskeletal Pain (ED) Additional Instructions: Go straight to ER should your symptoms become worse or should any new symptoms develop Patient Language: Citizen Of [place] Prescriptions: No Action propranolol 60 mg capsule,extended release 24 hr PO Follow-up/Referrals: Rafa Porter MD [Primary Care Provider, Internal Medicine] - 12/25/24
== END 2024-12-24 16:50 | disposition home or self-care (01) ==
PROVIDERS: Emergency Provider Registered Nurse; PCP Internal Medicine
DX: F07.89 Other personality and behavioral disorders due to known physiological condition (principal); I10 Essential (primary) hypertension; E66.9 Obesity, unspecified; Z68.42 Body mass index [BMI] 45.0-49.9, adult
CPT/HCPCS: 71101; 99213; G0463

== ENCOUNTER 2024-12-31 20:00 | Emergency (ER) | payer OTHER, SELFPAY ==
[2024-12-31] VITALS (9 sets, daily range): BP systolic 116–133; BP diastolic 70–88; PULSE 68–138; RESP 18–20; TEMP 36.6–36.9; O2SAT 95–97
--- NOTE | ~2024-12-31 | CT_ITS ---
CT abdomen pelvis wo con INDICATION:LEFT SIDE ABDOMEN PAIN X 2 WEEKS/VOMITING . COMPARISON: None. TECHNIQUE: Axial 2.5 mm images of the abdomen were obtained without IV or oral contrast. Diagnostic sensitivity is limited due to lack of IV contrast. FINDINGS: The lung bases are clear. The liver parenchyma is unremarkable. No intrahepatic mass or ductal dilatation is evident. The patient has had a cholecystectomy. The pancreas and spleen are normal in appearance. The adrenal glands are symmetric in size. The kidneys are unremarkable. No intrarenal stones are noted. There is no hydronephrosis. Evaluation of the stomach and bowel loops are limited due to lack of oral contrast. There are no bowel obstruction or acute appendicitis. There is colonic diverticulosis without evidence of acute diverticulitis. The bladder and rectum are normal. No free intraperitoneal fluid or air is evident. There is no significant retroperitoneal lymphadenopathy. The aorta, visceral vessels and renal arteries demonstrate normal caliber. The lower thoracic and lumbar vertebrae are in normal alignment. IMPRESSION: No acute abnormality is noted in the abdomen and pelvis. Colonic diverticulosis with no evidence of acute diverticulitis. All CT scans at this facility are performed using low dose modulation techniques as appropriate to perform exam including the following: automated exposure control; use of iterative reconstruction technique; adjustment of the mA and/or kV according to patient size (this includes techniques or standardized protocols for targeted exams where dose is matched to indication/reason for exam). Reviewed, dictated and finalized at location S. IMPRESSION: No acute abnormality is noted in the abdomen and pelvis. Colonic diverticulosis with no evidence of acute diverticulitis. All CT scans at this facility are performed using low dose modulation techniqu es as appropriate to perform exam including the following: automated exposure c ontrol; use of iterative reconstruction technique; adjustment of the mA and/or kV according to patient size (this includes techniques or standardized protocol s for targeted exams where dose is matched to indication/reason for exam).
--- NOTE | ~2024-12-31 | CT_ITS ---
CT brain wo con HISTORY:dizziness COMPARISON: None. TECHNIQUE: Axial images were obtained of the head without intravenous contrast. FINDINGS: No acute intracranial hemorrhage, mass effect or midline shift. No extra-axial fluid collections. The calvarium is intact. Visualized paranasal sinuses and mastoid air cells are clear. IMPRESSION: No acute intracranial hemorrhage or extra axial fluid collections. All CT scans at this facility are performed using low dose modulation techniques as appropriate to perform exam including the following: automated exposure control; use of iterative reconstruction technique; adjustment of the mA and/or kV according to patient size (this includes techniques or standardized protocols for targeted exams where dose is matched to indication/reason for exam). Reviewed, dictated and finalized at location S. IMPRESSION: No acute intracranial hemorrhage or extra axial fluid collections. All CT scans at this facility are performed using low dose modulation techniqu es as appropriate to perform exam including the following: automated exposure c ontrol; use of iterative reconstruction technique; adjustment of the mA and/or kV according to patient size (this includes techniques or standardized protocol s for targeted exams where dose is matched to indication/reason for exam).
--- NOTE | ~2024-12-31 | XR_ITS ---
XR chest 1V portable INDICATION:dizziness . REFERENCE: None FINDINGS: A single AP of the chest demonstrates normal heart size. The lungs are clear. There is no evidence of pneumothorax or pleural effusion. IMPRESSION: No acute pulmonary findings. Reviewed, dictated and finalized at location S.
--- NOTE | 2024-12-31 20:03 | ED_ITS ---
HPI - Neuro Symptoms/Deficit General Chief Complaint: Dizziness Stated Complaint: Dizzy Time Seen by Provider: 12/31/24 20:01 Source: patient Mode of arrival: ambulatory Limitations: no limitations History of Present Illness HPI Narrative: Patient is a 34-year-old male with left lower quadrant abdominal pain and nausea vomiting with some lightheaded and dizziness today. He has not slept very much as is is been in the hospital. He feels that he is somewhat feeling not well due to not sleeping either at this time. He was not acting like himself earlier today according to family by being somewhat confused and altered. Since in the emergency room, he has not been any kind of altered mental status. He has had 3 events of lightheaded and dizziness today. No headache or fever or chills or stiff neck. Patient also had an event about a month ago with syncope that was unwitnessed and he bit his tongue. Patient was given new medication by his primary doctor but he has not started these medications. Onset (ago): day(s) (One) Timing confirmed by: family member Location: altered (Resolved) History of same: No Severity: mild Quality: intermittent (Left lower quadrant sharp pain) Relieving factors: none Exacerbating factors: none Context: gradual onset On Anticoagulants: No Associated symptoms: malaise Treatments Prior to Arrival: none Related Data Home Medications ?Medication ?Instructions ?Recorded ?Confirmed ?Last Taken ?Type propranolol 60 mg capsule,24 mg PO 12/24/24 Unknown H istory hr,extended release duloxetine 20 mg capsule,delayed mg PO 12/31/24 Unkno wn History release montelukast 10 mg tablet mg 12/31/24 Unknown History Allergies Allergy/AdvReac Type Severity Reaction Status Date / Time No Known Allergies Allergy Verified 12/31/24 20:42 Review of Systems 2 Review of Systems: All systems reviewed & are unremarkable except as noted in HPI and below Constitutional: Constitutional: Reports no additional constitutional complaints Eyes: Eyes: Reports no additional eye complaints ENT: Reports system reviewed and no additional complaints, except as documented Cardiovascular: Cardiovascular: Reports no additional cardiovascular complaints Respiratory: Respiratory: Reports no additional respiratory complaints Gastrointestinal: Gastrointestinal: Reports no additional gastrointestinal complaints Genitourinary: Genitourinary: Reports no additional male genitourinary complaints Musculoskeletal: Musculoskeletal: Reports no additional musculoskeletal complaints Integumentary/Breasts: Skin/Breast: Reports system reviewed and no additional complaints, except as docu Neurologic: Reports system reviewed and no additional complaints, except as documented Psychiatric: Psychiatric: Reports no additional psychiatric complaints Endocrine: Endocrine: Reports no additional endocrine complaints Hematologic/Lymphatic: Hematologic/Lymphatic: Reports no additional hematologic/lymphatic complaints Allergic/Immunologic: Allergic/Immunologic: Reports no additional allergic/immunologic complaints PMFSH Past Medical History Medical History Chronic headaches Obesity Body mass index [BMI] 45.0-49.9, adult (04/05/16) Surgical History Surgical History Hx of cholecystectomy Family History Family History Father Family history of diabetes mellitus in first degree relative Hypertension Family history of elevated blood lipids Social History Social History Smoking status: Never smoker Alcohol intake: current Exam 2 Const: General: healthy appearing Nutritional Appearance: well nourished Orientation/consciousness: patient oriented x3 Limitations: no limitations HENMT: Head: normal to inspection Ears: external ears normal F zelda/Nose/Sinus: Normal external nose present Eyes: Conjunctivae: conjunctivae normal Pupils: Equal, round and reactive pupils present EOM: EOMs intact bilaterally Neck: Neck: normal visual inspection Chest: Chest palpation & inspection: normal inspection of the chest Resp: Effort & Inspection: normal respiratory effort and not labored A uscultation: clear to auscultation bilaterally and no crackles Cardio: Rate: regular rate Rhythm: regular rhythm Heart sounds: no murmurs GI: Inspection: non-distended GI Palp: Yes Soft to palpation, Yes Tenderness to palpation present (GI) (Left lower quadrant), No Guarding due to palpation present (GI), No Rigid due to palpation, No Hernia present, No Palpable mass present and No Rebound tenderness present Auscultation: normal bowel sounds : General: Yes bladder normal to palpation Back/Spine/Pelvis: Back: no CVA tenderness Skin: General skin exam: normal color Rashes: no rashes Wounds: no wounds Neuro: General: patient oriented x3, moves all extremities, no meningeal signs, no focal motor deficits and CN's II-XI intact bilaterally Cranial nerves: Yes Nystagmus not present Speech: normal speech Gait exam (Neuro): Normal gait present Other: Meningeal signs are negative, fast exam negative, NIH is 0, GCS is 15 Extrem: General: normal to inspection, no clubbing, cyanosis or edema and no pedal edema Psych: Mental Status: mental status grossly normal Affect: normal affect Attitude: cooperative Course Vital Signs Vital signs: Vital Signs Temperature 36.9 C 12/31/24 20:01 Pulse Rate 100 12/31/24 20:01 Respiratory Rate 20 12/31/24 20:01 Blood Pressure 133/88 12/31/24 20:01 Pulse Oximetry 95 12/31/24 20:01 Oxygen Delivery Room Air 12/31/24 20:01 Temperature 36.6 C 12/31/24 22:45 Pulse Rate 74 12/31/24 22:45 Respiratory Rate 18 12/31/24 22:45 Blood Pressure 128/76 12/31/24 22:45 Pulse Oximetry 97 12/31/24 22:45 Oxygen Delivery Room Air 12/31/24 23:34 MDM - Neuro Symptoms/Deficit MDM Narrative Medical decision making narrative: Patient is a 34-year-old male with nausea vomiting and diarrhea with abdominal pain. We will do a GI workup at this time. We will also monitor neuro complaints. Patient proceeded to have a seizure grand mall in the emergency room that was witnessed for 1 minute. Diazepam given with Keppra and dexamethasone and Rocephin and vancomycin. We will treat for meningitis at this time. Patient will be transfer for neuro evaluation. Lab Data Attestation: I reviewed the patient's lab results. 12/31/24 20:42 12/31/24 20:42 Labs: Lab Results 12/31/24 12/31/24 12/31/24 Range/Units 20:42 21:28 23:13 WBC 16.6 H (4.8-10.8) K/mm3 RBC 5.08 (4.70-6.10) M/mm3 Hgb 15.2 (14.0-18.0) g/dL Hct 44.6 (40.0-54.0) % MCV 87.8 (78.0-102.0) fL MCH 29.9 (27.0-31.0) pg MCHC 34.1 (32-36) g/dL RDW 12.3 (11.6-14.4) % Plt Count 385 (150-420) K/mm3 MPV 9.0 (8.7-11.0) fl Immature Gran % (Auto) 0.4 H (0.0-0.0) % Neut % (Auto) 84.6 H (50.0-70.0) % Lymph % (Auto) 8.1 L (18.0-42.0) % Bowman % (Auto) 6.3 (2.0-11.0) % Eos % (Auto) 0.2 L (1.0-6.0) % Baso % (Auto) 0.4 (0.0-1.0) % Lymph # (Auto) 1.34 (1.10-4.50) K/mm3 Bowman # (Auto) 1.04 H (0.10-0.90) K/mm3 Eos # (Auto) 0.04 (0.02-0.50) K/mm3 Baso # (Auto) 0.07 (0.00-0.10) K/mm3 Abs Immat Gran (auto) 0.06 H (0.00-0.00) K/mm3 Absolute Neuts (auto) 14.05 H (1.70-7.20) K/mm3 Absolute Nucleated RBC 0.00 (0.00-0.00) K/mm3 Nucleated RBC % 0.0 (0-0.0) % D-Dimer 0.25 (0.19-0.50) mg/L Sodium 140 (137-145) mmol/L Potassium 4.0 (3.4-5.0) mmol/L Chloride 102 (98-107) mmol/L Carbon Dioxide 29 (22-30) mmol/L Anion Gap 9 (4-12) mmol/L BUN 9 (9-20) mg/dL Creatinine 0.85 (0.7-1.3) mg/dL Estim Creat Clear Calc 142 ml/min Estimated GFR > 60 (59 - ) Glucose 108 (65-110) mg/dL Calculated Osmolality 289 (285-295) mOsm/kg Calcium 9.3 (8.4-10.2) mg/dL Total Bilirubin 0.6 (0.2-1.3) mg/dL AST 26 (17-59) U/L ALT 28 (6-50) U/L Alkaline Phosphatase 59 (38-126) U/L Troponin I < 0.012 (0.000-0.034) ng/mL Total Protein 7.7 (6.3-8.2) g/dL Albumin 4.6 (3.5-5.1) g/dL Urine Color Yellow (Yellow) Urine Appearance Clear (Clear) Urine pH 7.0 (5.0-8.0) Ur Specific [place] 1.015 (1.010-1.020) Urine Protein Negative (Negative) Urine Glucose (UA) Negative (Negative) Urine Ketones Trace H (Negative) Ur Blood (Man) Negative (Negative) Urine Nitrate Negative (Negative) Urine Bilirubin Negative (Negative) Urine Urobilinogen 0.2 (0.2-1.0) mg/dL Leukocyte Esterase Rfl Negative (Negative) GHAZALA/UL Urine Opiates Screen Negative (Negative) Urine Methadone Screen Negative (Negative) Ur Barbiturates Screen Negative (Negative) Ur Phencyclidine Scrn Negative (Negative) Ur Amphetamine Screen Negative (Negative) U Benzodiazepines Scrn Negative (Negative) Urine Cocaine Screen Negative (Negative) U Cannabinoids Screen Positive A (Negative) C. difficile (PCR) Negative (NEGATIVE) Imaging Data Attestation: I personally reviewed and interpreted this imaging study as follows: Radiologist's impression: Chest x-ray is negative for acute process CT scan of the head is negative for acute process CT scan of the abdomen and pelvis is negative for acute process ECG Data EKG #1: Attestation: I personally reviewed and interpreted this ECG as follows: ECG completion date: 12/31/24 ECG completion time: 21:41 EKG Interpretation: normal rate, sinus rhythm, no ectopy, normal QRS, normal QT, NL axis and no acute changes Discharge Plan Discharge Clinical Impression: New onset seizure, Nausea vomiting and diarrhea Abdominal pain Qualifiers: Abdominal location: unspecified location Qualified Code(s): R10.9 - Unspecified abdominal pain Patient Disposition: Acute Care Hospital Condition: Stable Patient Language: [place] Prescriptions: No Action montelukast 10 mg tablet duloxetine 20 mg capsule,delayed release(DR/EC) PO propranolol 60 mg capsule,extended release 24 hr PO Follow-up/Referrals: Rafa Porter MD [Primary Care Provider, Internal Medicine] Time of Disposition: 00:22
--- NOTE | 2024-12-31 20:03 | ECG_ITS ---
Test Date: 2024-12-31 20:09:04 Measurements Intervals [place] Rate: 83 P: 42 NV: 145 QRS: 26 QRSD: 100 T: 39 QT: 361 QTc: 426 Interpretive Statements SINUS RHYTHM NORMAL ECG No previous ECG available for comparison Electronically Signed On 01-01-2025 05:20:51 CDT by Ricky Esparza D.O.
--- OUTSIDE RECORDS SUMMARY | 2024-12-31 20:03 | XMS_ITS | Clinical Summary ---
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
[2024-12-31 20:48] LABS: Hematocrit 44.6 % (40.0-54.0); Hemoglobin 15.2 g/dL (14.0-18.0); Immature Granulocyte Percent A 0.4 % (0.0-0.0); Lymphocytes Absolute Auto 1.34 K/mm3 (1.10-4.50); Mean Corpuscular HGB Conc 34.1 g/dL (32-36); Mean Corpuscular Hemoglobin 29.9 pg (27.0-31.0); Mean Corpuscular Volume 87.8 fL (78.0-102.0); Nucleated Red Blood Cells Absolute Auto 0.00 K/mm3 (0.00-0.00); Nucleated Red Blood Cells Perc 0.0 % (0-0.0); Platelet Count Result 385 K/mm3 (150-420); Red Blood Count 5.08 M/mm3 (4.70-6.10); White Blood Count 16.6 K/mm3 (4.8-10.8)
--- NOTE | 2024-12-31 20:57 | PC.NURSE ---
pt returned from imaging via wheelchair. awaiting rseults. RN monitoring.
--- NOTE | 2024-12-31 21:07 | PC.NURSE ---
LIZETTE HOLDEN AT PT BEDSIDE FOR PATIENT UPDATE AND PLAN OF CARE.
[2024-12-31 21:13] LABS: Alanine Aminotransferase 28 U/L (6-50); Albumin Level 4.6 g/dL (3.5-5.1); Alkaline Phosphatase 59 U/L (38-126); Anion Gap 9 mmol/L (4-12); Aspartate Amino Transferase 26 U/L (17-59); Bilirubin,Total 0.6 mg/dL (0.2-1.3); Blood Urea Nitrogen 9 mg/dL (9-20); Calcium 9.3 mg/dL (8.4-10.2); Carbon Dioxide 29 mmol/L (22-30); Chloride 102 mmol/L (98-107); Estimated CRCL calculation 142 ml/min; Estimated Glomerular Filt Rate > 60; Glucose 108 mg/dL (65-110); Osmolality Calculated 289 mOsm/kg (285-295); Potassium 4.0 mmol/L (3.4-5.0); Sodium 140 mmol/L (137-145); Total Protein 7.7 g/dL (6.3-8.2)
--- NOTE | 2024-12-31 21:17 | PC.NURSE ---
PT TO CT SCAN VIA WHEELCHAIR PER CLEARING INSPECTOR.
[2024-12-31 21:24] LABS: Troponin I < 0.012 ng/mL (0.000-0.034)
[2024-12-31 21:45] LABS: Add Urine Microscopic? NO; Appearance Urine Clear (Clear); Glucose Urine UA Negative (Negative); Leukocyte Esterase Ur Negative LEU/UL (Negative); Nitrate Urine Negative (Negative); Specific Grav Ur 1.015 (1.010-1.020)
[2024-12-31 22:05] LABS: Cannabinoid Screen Urine Positive (Negative)
--- NOTE | 2024-12-31 22:47 | PC.NURSE ---
PT RESTING ON STRETCHER WITHOUT DISTRESS, VISITOR AT BEDSIDE. VSS. CALL LIGHT WITHIN REACH. PT AWAITING RESULTS AND PLAN OF CARE. UPDATE PROVIDED.
[2024-12-31] MEDS: diazePAM INJ (*CRX) 10 MG/2 ML SYRINGE 5 MG IM (23:34)
--- NOTE | 2024-12-31 23:40 | PC.NURSE ---
RN at nurses station, suddenly heard loud groaning noise out of patient room. RN and ERP to patient room where patient having a grand-mal seizure, lasting approximately 1 minute. Pt oral cavity suctioned and nasal trumpet placed post IM diazepam administration for snoring respirations. Pt postictal for several minutes after event, eventually coming around to his baseline. Pt father in law, whom brought him to the ED updated per ERP and plan of care provided to pt including transfer to higher level of care.
[2024-12-31] MEDS: LEVETIRACETAM IVPB (23:52)
[2024-12-31] MEDS: SODIUM CHLORIDE 0.9% IVPB (23:52)
[2025-01-01] VITALS (102 sets, daily range): BP systolic 101–143; BP diastolic 55–99; PULSE 77–135; RESP 16–20; TEMP 36.3–37.2; O2SAT 90–100
[2025-01-01 00:10] LABS: Toxigenic C. Diff NEGATIVE (NEGATIVE)
[2025-01-01] MEDS: dexAMETHasone SOD PHOS INJ 10 MG/ML 1 ML VIAL 20 MG IV PUSH (00:11)
[2025-01-01] MEDS: cefTRIAXone 2 GM in SODIUM CHLORIDE 0.9% IV 100 ML 200 ML IVPB (00:12)
[2025-01-01] MEDS: VANCOMYCIN HCL IVPB (00:38)
[2025-01-01] MEDS: SODIUM CHLORIDE 0.9% IVPB ×2 (00:38→09:33)
--- NOTE | 2025-01-01 00:46 | PC.NURSE ---
pt awake and alert at this time, in-laws at bedside leaving for home but will return. call light within reach and VSS.
--- NOTE | 2025-01-01 01:04 | PC.NURSE ---
IV meds infusing and pt awake, alert talking on his cell phone at this time. Pt awaiting bed assignment at transfer facility.
[2025-01-01] MEDS: SODIUM CHLORIDE 0.9% IV 1,000 ML 200 ML IV CONT ×2 (01:35→06:38)
--- NOTE | 2025-01-01 01:43 | PC.NURSE ---
Abxs infused, see MAR. IVF hung per order. Pt given wet swab for mouth dryness. In-laws back at bedside. pt and his visitors updated including awaiting hearing back from [facility] in [place]. Updated that [facility] contacted us, stated they do not have a bed available until sometime during the day. Understanding verbalized. call light within reach. pt given warm blanket and lights dimmed for comfort. pt afebrile. stretcher adjusted. VSS
--- NOTE | 2025-01-01 02:00 | PC.NURSE ---
pt in laws Nona Silvestre [phone] and Masoud Silvestre [phone] contacts as their daughter/pt spouse had a recent pacemaker placed this past sunday and is unable to come to bedside to be with her at this time.
--- NOTE | 2025-01-01 02:25 | PC.NURSE ---
pt asleep in ED 1. IVF infusing. call light within reach. seizure precautions remain. visitors left for home. Will update when more information becomes available.
--- NOTE | 2025-01-01 04:58 | PC.NURSE ---
pt update provided. pt resting on stretcher. denies complaints, only state he is tired. VSS. call light within reach. pt remains awaiting bed at a transfer facility.
[2025-01-01 06:32] LABS: Hematocrit 44.5 % (40.0-54.0); Hemoglobin 15.0 g/dL (14.0-18.0); Immature Granulocyte Percent A 0.4 % (0.0-0.0); Lymphocytes Absolute Auto 0.64 K/mm3 (1.10-4.50); Mean Corpuscular HGB Conc 33.7 g/dL (32-36); Mean Corpuscular Hemoglobin 29.6 pg (27.0-31.0); Mean Corpuscular Volume 87.9 fL (78.0-102.0); Nucleated Red Blood Cells Absolute Auto 0.00 K/mm3 (0.00-0.00); Nucleated Red Blood Cells Perc 0.0 % (0-0.0); Platelet Count Result 352 K/mm3 (150-420); Red Blood Count 5.06 M/mm3 (4.70-6.10); White Blood Count 17.7 K/mm3 (4.8-10.8)
--- NOTE | 2025-01-01 06:39 | PC.NURSE ---
ivf hung per order. see MAR. vss. pt resting on stretcher. pt spouse Christina phoned to speak with RN for update, . update provided including results, plan of care to transfer facility and awaiting bed at either [facility] or [facility]
[2025-01-01 06:46] LABS: Alanine Aminotransferase 29 U/L (6-50); Albumin Level 4.4 g/dL (3.5-5.1); Alkaline Phosphatase 57 U/L (38-126); Anion Gap 7 mmol/L (4-12); Aspartate Amino Transferase 29 U/L (17-59); Bilirubin,Total 0.5 mg/dL (0.2-1.3); Blood Urea Nitrogen 9 mg/dL (9-20); CRP 0.5 mg/dL (<1.0); Calcium 8.7 mg/dL (8.4-10.2); Carbon Dioxide 28 mmol/L (22-30); Chloride 106 mmol/L (98-107); Estimated CRCL calculation 139 ml/min; Estimated Glomerular Filt Rate > 60; Glucose 150 mg/dL (65-110); Osmolality Calculated 293 mOsm/kg (285-295); Potassium 4.3 mmol/L (3.4-5.0); Sodium 141 mmol/L (137-145); Total Protein 7.4 g/dL (6.3-8.2)
--- NOTE | 2025-01-01 07:09 | PC.NURSE ---
pt report given to ADRIANA Barbour for continuation of care on day shift.
[2025-01-01] MEDS: levETIRAcetam 500MG/NACL 100ML 500 MG/100 ML BAG 400 MG IVPB (08:42)
--- NOTE | 2025-01-01 09:22 | PC.NURSE ---
Keppra 1500mg being made by pharmacy
[2025-01-01] MEDS: LEVETIRACETAM IVPB (09:33)
--- NOTE | 2025-01-04 17:12 | PC.NURSE ---
preliminary blood cultures x2 reviewed. no growth in 24 hours.
--- NOTE | 2025-01-05 13:27 | PC.NURSE ---
Preliminary blood culture report; no growth in 24 hours.
--- NOTE | 2025-01-08 19:04 | PC.NURSE ---
FINAL BLOOD CULTURE NO GROWTH IN FIVE DAYS
== END 2025-01-01 13:33 | disposition short-term general hospital (02) ==
PROVIDERS: Emergency Medicine; Emergency Provider Emergency Medicine; PCP Internal Medicine
DX: R56.9 Unspecified convulsions (principal); R11.2 Nausea with vomiting, unspecified; R19.7 Diarrhea, unspecified; R10.32 Left lower quadrant pain; Z79.899 Other long term (current) drug therapy
CPT/HCPCS: 36415; 70450; 71045; 74176; 80053; 80307; 81003; 83605; 84484; 85025; 85380; 86140; 87493; 93005; 96361; 96365; 96367; 96372; 96374; 96375; 96376; 99285; J0696; J1100; J1953; J3360; J3373; J7030; J7050